=== PATIENT | female | born 1950 | race Caucasian/White ===

== ENCOUNTER 2017-04-09 09:29 | Observation (INO) | payer OTHER ==
[~2017-04-09] VITALS: Ht 172.7 cm; Wt 88.5 kg
[~2017-04-09 09:29] MED LIST: AMLO-110 PO; ASPI81TA28 PO; CHOL100010 PO; SERT50TA PO; SULF800T23 PO
[2017-04-09] MEDS ORDERED: CHOL100010 PO (10:25)
[2017-04-09] MEDS ORDERED: PRED-301 PO (10:25)
[2017-04-09 10:27] LABS: BASO % 0.1 %; BASO ABS # 0.02 K/uL (0-0.2); COMPLETE YES; EOS % 0.1 %; HEMATOCRIT 43.7 % (37-47); IG% 0.3 %; LYMPH % 10.6 %; LYMPH ABS # 1.57 K/uL (1.2-3.4); MEAN CELL VOLUME 92.2 fL (80-100); MEAN CORPUSCULAR HEMOGLOBIN 29.5 pg (25-34); MEAN PLATELET VOLUME 10.6 fL (7.4-10.4); NEUT % 77.9 %; PLATELET COUNT 265 K/uL (130-400); RED BLOOD COUNT 4.74 M/uL (4.2-5.4); WHITE BLOOD COUNT 14.86 K/uL (4.8-10.8)
[2017-04-09 10:47] LABS: ALT/SGPT 17 U/L (12-78); BLOOD UREA NITROGEN 17 mg/dl (7-18); BUN/CREATININE RATIO 15.7 (10-20); CALCIUM 9.5 mg/dl (8.5-10.1); CARBON DIOXIDE 27 mmol/L (21-32); CHLORIDE 102 mmol/L (98-107); GLUCOSE 95 mg/dl (70-99); POTASSIUM 3.8 mmol/L (3.5-5.1); SODIUM 137 mmol/L (136-145)
[2017-04-09 10:57] LABS: ALB/GLOB RATIO 0.9 (0.9-2); ALKALINE PHOSPHATASE 83 U/L (45-117); AST/SGOT 17 U/L (15-37); THYROID STIMULATING HORMONE 0.379 uIu/ml (0.300-4.500)
--- NOTE | 2017-04-09 11:18 | DIAGNOSTIC IMAGING REPORT ---
CHEST ONE VIEW PORTABLE CLINICAL HISTORY: SYNCOPE dyspnea COMPARISON STUDY: 07/18/2016 FINDINGS: Prior median sternotomy. Diaphragms smooth. Lungs are clear. Chronic apical pleural thickening. IMPRESSION: Chronic and postoperative change. No acute process. Electronically signed by: Leonel Machado M.D. 04/09/2017 11:16 AM Dictated Date/Time: 04/09/2017 11:16 AM
--- NOTE | 2017-04-09 11:53 | DIAGNOSTIC IMAGING REPORT ---
CT SCAN OF THE BRAIN WITHOUT IV CONTRAST CLINICAL HISTORY: Headache. Syncope. History of aneurysm repair. COMPARISON STUDY: CT of the brain dated 01/23/[address] angiogram of the brain dated 08/03/2014. TECHNIQUE: Unenhanced axial CT scan of the brain is performed from the vertex to the skull base. Examination is degraded by streak artifact from metallic structures in the left temporal fossa. CT DOSE: 614.27 mGy.cm FINDINGS: Brain parenchyma: There are age-related involutional changes noting moderate patchy subcortical and periventricular microangiopathic change. Postoperative change is again seen in the left temporal fossa with encephalomalacia from a chronic infarct identified in the left basal ganglia and the medial left temporal lobe. A chronic lacunar infarct in the right cerebellar hemisphere is unchanged. These findings are unchanged the 2013. A chronic lacunar infarct in the left cerebellar hemisphere is new from 2013. There is no hemorrhage, mass effect, or evidence of acute territorial ischemia by CT criteria. Sanford-white matter is preserved. No extra-axial fluid collection is seen. Ventricles, sulci, cisterns: Prominent secondary to involutional change. Intracranial vasculature: There is atherosclerotic calcification of the cavernous carotid arteries. Calvarium: There are changes from left frontotemporal craniotomy. Additional postoperative change is also seen more inferiorly in the left temporal bone. No destructive calvarial lesion is seen. Sinuses and mastoids: Mild mucosal thickening is seen within the maxillary antra. The remaining paranasal sinuses are clear. The mastoid air cells are well pneumatized. Orbits: The bony orbits are grossly intact. There are bilateral ocular lens implants. IMPRESSION: 1. There is no hemorrhage, mass effect, or evidence of acute territorial ischemia by CT criteria. 2. Senescent changes, postoperative change, and remote infarct as above. These findings are similar to prior studies. Electronically signed by: Jl Bloom M.D. 04/09/2017 11:52 AM Dictated Date/Time: 04/09/2017 11:46 AM
[2017-04-09] MEDS ORDERED: MoRPHine SULFATE 4 MG/ML 1 ML CARP\\VIAL IV STA (11:55)
[2017-04-09] MEDS ORDERED: ONDANSETRON INJ 2 MG/ML 2 ML VIAL IV STA (11:55)
[2017-04-09 12:09] LABS: URINE APPEARANCE TURBID (CLEAR); URINE BILIRUBIN NEG (NEG); URINE COLOR YELLOW; URINE EPITHELIAL CELL AUTO >30 /lpf (0-5); URINE NITRITE POS (NEG); URINE PH 8.5 (4.5-7.5); URINE SPECIFIC GRAVITY 1.017 (1.000-1.030); UROBILINOGEN POS (NEG); ZZUR CULT IF INDIC CLEAN CATCH YES
[2017-04-09 12:27] LABS: MANUAL MICROSCOPIC REQUIRED? NO; REVIEW REQ? NO; SULFASALICYLIC ACID POS (NEG)
[2017-04-09] MEDS ORDERED: CEFTRIAXONE SOD INJ 1 GM ADDVIAL IV STA (12:48)
[2017-04-09] MEDS ORDERED: OPTIRAY 320 IV PRN (13:15)
[2017-04-09] MEDS ORDERED: NITROGLYCERIN 0.4 MG SL PER TAB CHARGE SL PRN (13:30)
[2017-04-09] MEDS ORDERED: ONDANSETRON INJ 2 MG/ML 2 ML VIAL IV PRN (13:30)
[2017-04-09] MEDS ORDERED: IV FLUIDS COMPLETED PRN (13:45)
--- NOTE | 2017-04-09 14:04 | DIAGNOSTIC IMAGING REPORT ---
CHEST CTA for PULMONARY ARTERIES CT DOSE: 337.25 mGycm HISTORY: Chest pain dyspnea TECHNIQUE: Multiaxial CT images of the chest were performed following the intravenous administration of contrast to evaluate the pulmonary arteries. Maximal intensity projection images were also obtained. COMPARISON STUDY: None. FINDINGS: Mild generalized aneurysmal dilatation of the thoracic aorta. Maximal diameter is 3.5 cm. Aortic root measures 3.3 cm. A major arterial vasculature enhances uniformly. There are no significant filling defects. Mild emphysematous changes present. Mild bibasilar atelectasis is noted. Apical pleural thickening and scarring is considered chronic. Several basilar pulmonary nodules are present measuring up to 1 cm at the left base. Follow-up 4-6 months is suggested. IMPRESSION: 1. Study is negative for pulmonary embolus. 2. Mild aneurysmal dilatation thoracic aorta. 3. Mild emphysematous change. 4. Bibasilar parenchymal nodularity with follow-up CT recommended in 4-6 months. Electronically signed by: Leonel Machado M.D. 04/09/2017 2:03 PM Dictated Date/Time: 04/09/2017 1:58 PM
[2017-04-09] MEDS ORDERED: OMEP20TA PO (14:29)
[2017-04-09] MEDS ORDERED: SERT-234 PO (14:29)
[2017-04-09] MEDS ORDERED: CALC-602 PO (14:29)
[2017-04-09 14:49] VITALS: O2SAT 98
[2017-04-09] MEDS: ACETAMINOPHEN 325 MG TAB PO PRN ×2 (15:05→20:23)
[2017-04-09 15:17] VITALS: BP 125/76; PULSE 64; TEMP 36.9; O2SAT 95
[2017-04-09] MEDS: SODIUM CHLORIDE 0.9% 1000ML 1,000 ML IV SCH (15:34)
[2017-04-09 16:23] VITALS: BP 125/76; PULSE 64; TEMP 36.9; Ht 172.7 cm; Wt 88.5 kg
[2017-04-09] MEDS: AMLODIPINE BESYLATE 5 MG TAB PO SCH (16:41)
--- NOTE | 2017-04-09 17:14 | EMERGENCY ROOM VISIT NOTE ---
History Report prepared by Rafael: Gabe Maynard Under the Supervision of: Dr. Bryce Patterson D.O. First contact with patient: 10:20 Chief Complaint: SYNCOPE Stated Complaint: UPSET STOMACH,SYNCOPE Nursing Triage Summary: pt reports awoke last night around 0430 feeling weak and nauseated reports after going down stairs to drink some gingerale and then went upstairs feeling more and more weak unable to stand after about 30 min able to stand and ambulated to bed. no difficulty speaking brain anuerysm 2012 History of Present Illness The patient is a 66 year old female who presents to the Emergency Room by EMS with complaints of a syncopal episode occurring 6.5 hours ago. She states that she woke up last night with some GERD-like "burning" chest pain on the left side of her chest and walked downstairs to drink some sera-sudha. She states that upon walking back upstairs, she "fainted". The patient has a history of GERD and takes omeprazole as needed. She states that the pain in her chest was present in the left side and resolved after the sera-sudha. She currently complains of a headache, weakness and nausea. The patient denies any pain radiation with her chest pain. She states that her headache feels like a typical headache. She is unsure for how long she was unconscious for following the fall. Per , the patient had a calcification removed from her heart valve five years ago, and has a history of a clipped brain aneurysm four years ago. She also has a history of hypertension. Pt denies change in vision, fevers , shortness of breath, vomiting, diarrhea, abdominal pain, abnormal pain with urination, and melena. Source of History: patient Onset: 6.5 hours ago Quality: other (syncope) Timing: other (episode) Associated Symptoms: + headache, + chest pain (GERD-like), + nausea, + weakness, No fevers, No SOB, No vomiting, No abdominal pain, No diarrhea, No urinary symptoms Review of Systems See HPI for pertinent positives & negatives. A total of 10 systems reviewed and were otherwise negative. Past Medical & Surgical Medical Problems: (1) Atrial fibrillation (2) Brain aneurysm (3) HTN (hypertension) (4) Lacunar infarction (5) Myxoma of heart (6) PMR (polymyalgia rheumatica) (7) Splenic infarct Surgical Problems: (1) H/O aortic valve repair (2) H/O atrial septal defect repair (3) History of cataract surgery (4) History of tubal ligation Family History FH: cancer Hypertension Social History Smoking Status: Never Smoker Alcohol Use: none Drug Use: none Marital Status: Housing Status: lives with family Occupation Status: unemployed Current/Historical Medications Scheduled Amlodipine (Norvasc), 5 MG PO QAM Aspirin (Aspirin Ec), 162 MG PO QPM Calcium Citrate-Vitamin D (Calcium Citrate + D3 Max 315-250 mg-Unit), 1 TAB PO DAILY Omeprazole (Omeprazole), 1 TAB PO DAILY Prednisone (Prednisone), 5 MG PO DAILY Sertraline (Zoloft), 1 TAB PO DAILY Allergies Coded Allergies: Lisinopril (Verified Adverse Reaction, Intermediate, COUGH, 04/09/17) Baclofen (Verified Adverse Reaction, Mild, N/V, 04/09/17) Physical Exam Vital Signs Date Time Temp Pulse Resp B/P (MAP) Pulse Ox O2 Delivery O2 Flow Rate FiO2 04/09/17 14:49 78 20 142/78 98 04/09/17 14:06 76 20 151/76 97 Room Air 04/09/17 13:20 71 04/09/17 12:26 68 20 148/81 98 Room Air 04/09/17 10:57 68 20 121/73 96 Room Air 04/09/17 09:55 67 120/59 65 121/63 04/09/17 09:49 70 04/09/17 09:33 36.8 64 18 141/76 96 Room Air Physical Exam GENERAL: Sitting up in bed, disheveled, no acute distress, nontoxic. EYE EXAM: normal conjunctiva, PERRL and EOM's intact OROPHARYNX: no exudate, no erythema, lips, buccal mucosa, and tongue normal and mucous membranes are moist NECK: supple, no nuchal rigidity, no adenopathy, non-tender LUNGS: Clear to auscultation. Normal chest wall mechanics HEART: no murmurs, S1 normal and S2 normal ABDOMEN: abdomen soft, non-tender, normo-active bowel sounds, no masses, no rebound or guarding. BACK: Back is symmetrical on inspection and there is no deformity, no midline tenderness, no CVA tenderness. SKIN: no rashes and no bruising UPPER EXTREMITIES: upper extremities are grossly normal. LOWER EXTREMITIES: No pitting edema. NEURO EXAM: Normal sensorium, cranial nerves II-XII intact, normal speech, no weakness of arms, no weakness of legs. No drift. Finger to nose intact. Gross sensation intact. Medical Decision & Procedures ER Provider Diagnostic Interpretation: Radiology results as stated below per my review and the radiologist's interpretation: CT SCAN OF THE BRAIN WITHOUT IV CONTRAST FINDINGS: Brain parenchyma: There are age-related involutional changes noting moderate patchy subcortical and periventricular microangiopathic change. Postoperative change is again seen in the left temporal fossa with encephalomalacia from a chronic infarct identified in the left basal ganglia and the medial left temporal lobe. A chronic lacunar infarct in the right cerebellar hemisphere is unchanged. These findings are unchanged the 2014. A chronic lacunar infarct in the left cerebellar hemisphere is new from 2014. There is no hemorrhage, mass effect, or evidence of acute territorial ischemia by CT criteria. Sanford-white matter is preserved. No extra-axial fluid collection is seen. Ventricles, sulci, cisterns: Prominent secondary to involutional change. Intracranial vasculature: There is atherosclerotic calcification of the cavernous carotid arteries. Calvarium: There are changes from left frontotemporal craniotomy. Additional postoperative change is also seen more inferiorly in the left temporal bone. No destructive calvarial lesion is seen. Sinuses and mastoids: Mild mucosal thickening is seen within the maxillary antra. The remaining paranasal sinuses are clear. The mastoid air cells are well pneumatized. Orbits: The bony orbits are grossly intact. There are bilateral ocular lens implants. IMPRESSION: 1. There is no hemorrhage, mass effect, or evidence of acute territorial ischemia by CT criteria. 2. Senescent changes, postoperative change, and remote infarct as above. These findings are similar to prior studies. Electronically signed by: Jl Bloom M.D. CHEST ONE VIEW PORTABLE FINDINGS: Prior median sternotomy. Diaphragms smooth. Lungs are clear. Chronic apical pleural thickening. IMPRESSION: Chronic and postoperative change. No acute process. Electronically signed by: Leonel Machado M.D. Laboratory Results 04/09/17 10:00 Red Blood Count 4.74, Mean Corpuscular Volume 92.2, Mean Corpuscular Hemoglobin 29.5, Mean Corpuscular Hemoglobin Concent 32.0, Mean Platelet Volume 10.6, Neutrophils (%) (Auto) 77.9, Lymphocytes (%) (Auto) 10.6, Monocytes (%) (Auto) 11.0, Eosinophils (%) (Auto) 0.1, Basophils (%) (Auto) 0.1, Neutrophils # (Auto ) 11.57, Lymphocytes # (Auto) 1.57, Monocytes # (Auto) 1.64, Eosinophils # (Auto ) 0.02, Basophils # (Auto) 0.02 04/09/17 10:00 Test 04/09/17 10:00 04/09/17 10:24 04/09/17 11:50 White Blood Count 14.86 K/uL (4.8-10.8) Red Blood Count 4.74 M/uL (4.2-5.4) Hemoglobin 14.0 g/dL (12.0-16.0) Hematocrit 43.7 % (37-47) Mean Corpuscular Volume 92.2 fL (80-100) Mean Corpuscular Hemoglobin 29.5 pg (25-34) Mean Corpuscular Hemoglobin Concent 32.0 g/dl (32-36) Platelet Count 265 K/uL (130-400) Mean Platelet Volume 10.6 fL (7.4-10.4) Neutrophils (%) (Auto) 77.9 % Lymphocytes (%) (Auto) 10.6 % Monocytes (%) (Auto) 11.0 % Eosinophils (%) (Auto) 0.1 % Basophils (%) (Auto) 0.1 % Neutrophils # (Auto) 11.57 K/uL (1.4-6.5) Lymphocytes # (Auto) 1.57 K/uL (1.2-3.4) Monocytes # (Auto) 1.64 K/uL (0.11-0.59) Eosinophils # (Auto) 0.02 K/uL (0-0.5) Basophils # (Auto) 0.02 K/uL (0-0.2) RDW Standard Deviation 42.5 fL (36.4-46.3) RDW Coefficient of Variation 12.5 % (11.5-14.5) Immature Granulocyte % (Auto) 0.3 % Immature Granulocyte # (Auto) 0.04 K/uL (0.00-0.02) D-Dimer 860 ug/L FEU (0-500) Anion Gap 8.0 mmol/L (3-11) Est Creatinine Clear Calc Drug Dose 55.2 ml/min Estimated GFR () 59.7 Estimated GFR (Non- 51.5 BUN/Creatinine Ratio 15.7 (10-20) Calcium Level 9.5 mg/dl (8.5-10.1) Total Bilirubin 1.4 mg/dl (0.2-1) Aspartate Amino Transf (AST/SGOT) 17 U/L (15-37) Alanine Aminotransferase (ALT/SGPT) 17 U/L (12-78) Alkaline Phosphatase 83 U/L (45-117) Total Creatine Kinase 42 U/L (26-192) Total Protein 7.4 gm/dl (6.4-8.2) Albumin 3.4 gm/dl (3.4-5.0) Globulin 4.0 gm/dl (2.5-4.0) Albumin/Globulin Ratio 0.9 (0.9-2) Thyroid Stimulating Hormone (TSH) 0.379 uIu/ml (0.300-4.500) Bedside Troponin I < 0.030 ng/ml (0-0.045) Urine Color YELLOW Urine Appearance TURBID (CLEAR) Urine pH 8.5 (4.5-7.5) Urine Specific [place] 1.017 (1.000-1.030) Urine Protein 2+ (NEG) Urine Glucose (UA) NEG (NEG) Urine Ketones NEG (NEG) Urine Occult Blood 2+ (NEG) Urine Nitrite POS (NEG) Urine Bilirubin NEG (NEG) Urine Urobilinogen POS (NEG) Urine Leukocyte Esterase LARGE (NEG) Urine WBC (Auto) >30 /hpf (0-5) Urine RBC (Auto) >30 /hpf (0-4) Urine Hyaline Casts (Auto) 1-5 /lpf (0-5) Urine Epithelial Cells (Auto) >30 /lpf (0-5) Urine Bacteria (Auto) 4+ (NEG) Laboratory results per my review. Medications Administered Medications (Trade) Dose Ordered Sig/Svitlana Route Start Time Stop Time Status Last Admin Dose Admin Morphine Sulfate (MoRPHine SULFATE INJ) 4 mg NOW STAT IV 04/09/17 11:55 04/09/17 11:56 DC 04/09/17 12:22 4 MG Ondansetron HCl (Zofran Inj) 4 mg NOW STAT IV 04/09/17 11:55 7/11/17 11:56 DC 04/09/17 12:22 4 MG Ceftriaxone Sodium (Rocephin Inj) 1 gm NOW STAT IV 04/09/17 12:48 04/09/17 12:49 DC 04/09/17 13:06 1 GM Acetaminophen (Tylenol Tab) 650 mg Q4H PRN PO 04/09/17 13:30 05/09/17 13:29 04/09/17 15:05 650 MG ECG Indication: syncope Rate (beats per minute): 63 Rhythm: sinus rhythm Findings: no ectopy, other (Normal axis. Normal intervals. ) ED Course ED COURSE: Vital signs were reviewed and appeared normal. The patients medical record was reviewed The above diagnostic studies were performed and reviewed. ED treatments and interventions as stated above. 1031: The patient was evaluated in room C9. A complete history and physical examination was performed. 1155: Ordered Zofran Inj 4 mg IV, Morphine Sulfate 4 mg IV. 1248: Ordered Rocephin Inj 1 gm IV. 1250: Upon reevaluation, the patient is resting comfortably. I discussed my findings with the patient and she understands and agrees with the treatment plan. Based on the patients age, coexisting illnesses, exam and lab findings the decision to treat as an inpatient was made. The patient remained stable while under my care. The patient will be evaluated for further management. Medical Decision Differential diagnosis includes etiologies such as vasovagal event, infection, hypoglycemia, electrolyte abnormalities, cardiac sources, intracerebral event, toxicologic, neurologic, as well as others were entertained. Blood pressure screening: Patient was found to have normal blood pressure on screening and does not require follow-up. Medication Reconciliation: I attest that I have personally reviewed the patient' s current medication list. Patient is a 66-year-old female who had left-sided chest pain that was followed by basic will then. She describes chest pain as GERD-like. Labs are remarkable for a leukocytosis of 14,000. BMP along with LFTs, troponin and TSH were unremarkable. UA shows a clear UTI although contaminated with multiple epithelial cells. EKG was unremarkable. D-dimer was elevated but CT PE was negative for clots/infection. CT did show a pulmonary nodule to have followed up in 4-6 months. Patient was given IV antibiotics and admitted to internal medicine with atypical chest pain and syncopal episode. Consults Time Called: 1245 Consulting Physician: Angie Lua Returned Call: 1250 I reviewed the patient's case with Angie CASE. Colleen will evaluate the patient for further management. Impression Primary Impression: Syncope Additional Impressions: Chest pain UTI (urinary tract infection) Pulmonary nodule Scribe Attestation The scribe's documentation has been prepared under my direction and personally reviewed by me in its entirety. I confirm that the note above accurately reflects all work, treatment, procedures, and medical decision making performed by me. Departure Information Dispostion Being Evaluated By Hospitalist Referrals Francisco Carreon MD (PCP) Patient Instructions My [facility] Problem Qualifiers Primary Impression: Syncope Syncope type: unspecified Qualified Codes: R55 - Syncope and collapse Additional Impressions: Chest pain Chest pain type: unspecified Qualified Codes: R07.9 - Chest pain, unspecified UTI (urinary tract infection) Urinary tract infection type: site unspecified Hematuria presence: with hematuria Qualified Codes: N39.0 - Urinary tract infection, site not specified ; R31.9 - Hematuria, unspecified
--- NOTE | 2017-04-09 18:20 | History and Physical ---
History & Physical Date & Time of Service: Apr 09, 2017 ~ 14:15 Chief Complaint: Syncope Primary Care Physician: Francisco Carreon MD History of Present Illness 66 year old female who presents to the ER after syncopal events. Patient reports that she woke up around 0400 this morning and had heart burn. She describes it as located on the left side of her chest and describes it as a burning sensation. She describes this as typical heart burn for her. She denies any chest pain, pressure, or radiation of the pain into her jaw, neck, or arm. Patient then got up and and took some TUMS and drank some soda. She reports resolution of the heart burn after this. On her way back to bed, she started to feel very lightheaded, nauseated, and generally weak. Once she reached the top of the stairs, she passed out. Her heard her fall and came to help her. She denies tongue biting or loss of bowel or bladder function. No unilateral weakness, numbness, tingling, slurred speech, or facial droop. When she tried to get up to go back to bed, she again passed out. She was able to get back to bed and fall asleep for a few hours. When she woke up she still felt poorly with lightheadedness and generalized weakness. Patient denies any associated shortness of breath or diaphoresis. Patient reports persistent UTI symptoms for the past several months. She reports she has been following with urology however has not been placed on antibiotics for several months. She reports urinary pressure and low back pain. She denies fever and chills. No vomiting or diarrhea. In the ER, U/A is consistent with UTI. WBC 14K. Vitals are stable. Head CT and CTA chest are negative for acute findings. She was given a dose of IV Rocephin. 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 (6) PMR (polymyalgia rheumatica) Status: Chronic (7) Splenic infarct Status: Chronic Surgical Problems: (1) H/O aortic valve repair Status: Chronic (2) H/O atrial septal defect repair Status: Chronic (3) History of cataract surgery Status: Chronic (4) History of tubal ligation Status: Chronic Family History FH: colon cancer MOTHER FH: multiple sclerosis SISTER Social History Smoking Status: Former Smoker Alcohol Use: none Marital Status: Housing status: lives with family Immunizations History of Influenza Vaccine: Yes Influenza Vaccine Date: Jun 22, 2016 History of Tetanus Vaccine?: Yes (UTD) Tetanus Immunization Date: February 26, 2013 History of Pneumococcal: Yes Pneumococcal Date: Apr 08, 2017 Multi-Drug Resistant Organisms History of MDRO: No Allergies Coded Allergies: Lisinopril (Verified Adverse Reaction, Intermediate, COUGH, 04/09/17) Baclofen (Verified Adverse Reaction, Mild, N/V, 04/09/17) Home Medications Scheduled Amlodipine (Norvasc), 5 MG PO QAM Aspirin (Aspirin Ec), 162 MG PO QPM Calcium Citrate-Vitamin D (Calcium Citrate + D3 Max 315-250 mg-Unit), 1 TAB PO DAILY Omeprazole (Omeprazole), 1 TAB PO DAILY Prednisone (Prednisone), 5 MG PO DAILY Sertraline (Zoloft), 1 TAB PO DAILY Review of Systems ROS per HPI, all other systems reviewed and negative Physical Exam Vital Signs Date Time Temp Pulse Resp B/P (MAP) Pulse Ox O2 Delivery O2 Flow Rate FiO2 04/09/17 14:06 76 20 151/76 97 Room Air 04/09/17 13:20 71 04/09/17 12:26 68 20 148/81 98 Room Air 04/09/17 10:57 68 20 121/73 96 Room Air 04/09/17 09:55 67 120/59 65 121/63 04/09/17 09:49 70 04/09/17 09:33 36.8 64 18 141/76 96 Room Air General Appearance: no apparent distress Head: normocephalic Eyes: normal inspection ENT: hearing grossly normal Neck: supple, no JVD Respiratory/Chest: lungs clear, normal breath sounds, no respiratory distress Cardiovascular: regular rate, rhythm, no edema, normal peripheral pulses Abdomen/GI: normal bowel sounds, non tender, soft Extremities/Musculoskelatal: normal inspection, no calf tenderness Neurologic/Psych: no motor/sensory deficits, alert, normal mood/affect, oriented x 3 Skin: normal color, warm/dry Diagnostics Laboratory Results Results Past 24 Hours Test 04/09/17 10:00 04/09/17 10:24 04/09/17 11:50 Range/Units White Blood Count 14.86 4.8-10.8 K/uL Red Blood Count 4.74 4.2-5.4 M/uL Hemoglobin 14.0 12.0-16.0 g/dL Hematocrit 43.7 37-47 % Mean Corpuscular Volume 92.2 80-100 fL Mean Corpuscular Hemoglobin 29.5 25-34 pg Mean Corpuscular Hemoglobin Concent 32.0 32-36 g/dl Platelet Count 265 130-400 K/uL Mean Platelet Volume 10.6 7.4-10.4 fL Neutrophils (%) (Auto) 77.9 % Lymphocytes (%) (Auto) 10.6 % Monocytes (%) (Auto) 11.0 % Eosinophils (%) (Auto) 0.1 % Basophils (%) (Auto) 0.1 % Neutrophils # (Auto) 11.57 1.4-6.5 K/uL Lymphocytes # (Auto) 1.57 1.2-3.4 K/uL Monocytes # (Auto) 1.64 0.11-0.59 K/uL Eosinophils # (Auto) 0.02 0-0.5 K/uL Basophils # (Auto) 0.02 0-0.2 K/uL RDW Standard Deviation 42.5 36.4-46.3 fL RDW Coefficient of Variation 12.5 11.5-14.5 % Immature Granulocyte % (Auto) 0.3 % Immature Granulocyte # (Auto) 0.04 0.00-0.02 K/uL D-Dimer 860 0-500 ug/L FEU Sodium Level 137 136-145 mmol/L Potassium Level 3.8 3.5-5.1 mmol/L Chloride Level 102 98-107 mmol/L Carbon Dioxide Level 27 21-32 mmol/L Anion Gap 8.0 3-11 mmol/L Blood Urea Nitrogen 17 7-18 mg/dl Creatinine 1.10 0.60-1.20 mg/dl Est Creatinine Clear Calc Drug Dose 55.2 ml/min Estimated GFR () 59.7 Estimated GFR (Non- 51.5 BUN/Creatinine Ratio 15.7 10-20 Random Glucose 95 70-99 mg/dl Calcium Level 9.5 8.5-10.1 mg/dl Total Bilirubin 1.4 0.2-1 mg/dl Aspartate Amino Transf (AST/SGOT) 17 15-37 U/L Alanine Aminotransferase (ALT/SGPT) 17 12-78 U/L Alkaline Phosphatase 83 45-117 U/L Total Creatine Kinase 42 26-192 U/L Creatine Kinase MB < 0.5 0.5-3.6 ng/ml Creatine Kinase MB Ratio 0-3.0 Troponin I < 0.015 0-0.045 ng/ml Total Protein 7.4 6.4-8.2 gm/dl Albumin 3.4 3.4-5.0 gm/dl Globulin 4.0 2.5-4.0 gm/dl Albumin/Globulin Ratio 0.9 0.9-2 Thyroid Stimulating Hormone (TSH) 0.379 0.300-4.500 uIu/ml Bedside Troponin I < 0.030 0-0.045 ng/ml Urine Color YELLOW Urine Appearance TURBID CLEAR Urine pH 8.5 4.5-7.5 Urine Specific [place] 1.017 1.000-1.030 Urine Protein 2+ NEG Urine Glucose (UA) NEG NEG Urine Ketones NEG NEG Urine Occult Blood 2+ NEG Urine Nitrite POS NEG Urine Bilirubin NEG NEG Urine Urobilinogen POS NEG Urine Leukocyte Esterase LARGE NEG Urine WBC (Auto) >30 0-5 /hpf Urine RBC (Auto) >30 0-4 /hpf Urine Hyaline Casts (Auto) 1-5 0-5 /lpf Urine Epithelial Cells (Auto) >30 0-5 /lpf Urine Bacteria (Auto) 4+ NEG Microbiology Results 04/09/17 Urine Culture, Received Pending Diagnostic Radiology CXR IMPRESSION: Chronic and postoperative change. No acute process. CT HEAD IMPRESSION: 1. There is no hemorrhage, mass effect, or evidence of acute territorial ischemia by CT criteria. 2. Senescent changes, postoperative change, and remote infarct as above. These findings are similar to prior studies. CTA CHEST IMPRESSION: 1. Study is negative for pulmonary embolus. 2. Mild aneurysmal dilatation thoracic aorta. 3. Mild emphysematous change. 4. Bibasilar parenchymal nodularity with follow-up CT recommended in 4-6 months. Impression Assessment and Plan SYNCOPE - admit to tele - patient presenting with syncopal events x 2 at home; in the ED, U/A consistent with UTI - suspect vasovagal / volume depletion from UTI - CT head negative; no focal deficits on exam - patient reported heart burn which is typical for her, was relieved with TUMS and soda; low suspicion for ACS; initial troponin negative, EKG without acute ST changes - continue to cycle cardiac enzymes, check resting echo - + D. Dimer - CTA chest negative, will check BLLE dopplers to complete work up - IVF, monitor orthostatic BPs - carotid dopplers UTI - U/A consistent with UTI - patient reports recurrent / persistent UTI symptoms for the past several months - has been following with Dr. Obando - s/p [place] the ED - prior cultures have grown E. Coli and Beta Strep, sensitive to Rocephin - will continue with and adjust per culture results - preliminary outpatient culture growing E. Coli - do not suspect sepsis HX ATRIAL MYXOMA, ASD REPAIR, AORTIC VALVE REPAIR - checking echo HX BRAIN ANEURYSM CLIPPING PMR - continue steroids - BP stable, no role for stress dose steroids at this time HTN - BP controlled, continue amlodipine DEPRESSION - continue sertraline DVT PROPHYLAXIS - SCDs due to hx of brain aneurysm clipping DISPO - The patient will be placed as observation status for now until further work up is complete. Attending Note: Patient is a 66 yr female who presents with for evaluation of a syncopal episode , left sided chest pain, lightheadedness and generalized weakness. CT head showed no acute process. Has elevated d-dimer CT for PE is negative. UA is suggestive of UTI. Physical Exam: Vitals signs as noted above General Appearance:Moderately built and nourished, no apparent distress Head: normocephalic, Atraumatic Eyes: normal inspection, EOMI, PERRL Neck: supple, Trachea midline Respiratory/Chest: Normal breath sounds, CTA Cardiovascular: Metallic heart sounds, No murmur Abdomen/GI:Soft, Non tender, Bowel sounds present Extremities/Musculoskelatal:normal inspection, no edema Neurologic/Psych:AAOX3, grossly no focal neurological deficits Skin:normal color,warm. Well healed surgical scar on chest Assessment and Plan: Syncope:Likely Vasovagal CT head, Carotid duplex: No acute process Check ECHO, Orthostatics Monitor in tele for arrhythmias UTI: Continue Abx Follow cultures CT finding: Bibasilar parenchymal nodularity Needs follow-up CT 4-6 months as outpatient I personally reviewed the record. Patient is interviewed and examined at bedside. Patient's care is coordinated with Angie Coronel ROPING TENDER. Please refer to the documentation above for details of patient's presentation and for discussion of other issues. VTE Prophylaxis VTE Risk Assessment Done? Y/N: Yes Risk Level: Moderate
--- NOTE | 2017-04-09 19:18 | DIAGNOSTIC IMAGING REPORT ---
BILATERAL LOWER EXTREMITY VENOUS DOPPLER CLINICAL HISTORY: Syncope. COMPARISON STUDY: No previous studies for comparison. TECHNIQUE: Sonography of the deep venous system of the bilateral lower extremities was performed. Compression and augmentation were evaluated. FINDINGS: The bilateral common femoral, superficial femoral and popliteal veins were compressible. Augmentation was normal. Flow was shown within the deep calf vessels. IMPRESSION: No evidence of deep venous thrombus within the bilateral lower extremities. Electronically signed by: Tee Galvez M.D. 04/09/2017 7:17 PM Dictated Date/Time: 04/09/2017 7:16 PM
--- NOTE | 2017-04-09 19:20 | DIAGNOSTIC IMAGING REPORT ---
CAROTID ARTERY ULTRASOUND CLINICAL HISTORY: Syncope. COMPARISON STUDY: None. TECHNIQUE: Real-time, grayscale, and color Doppler sonography of the carotid and vertebral arteries was performed. Images were viewed in the transverse and longitudinal planes. FINDINGS: There is moderate atherosclerotic plaque. Velocity measurements are listed below. COMMON CAROTID PEAK SYSTOLIC VELOCITY (CM/S): RIGHT 93 LEFT 103 ICA PEAK SYSTOLIC VELOCITY (CM/S): RIGHT 66 LEFT 99 The systolic ratios between the internal to common carotid arteries are normal. Antegrade flow is seen in the vertebral arteries. The external carotid arteries are patent. Blood pressure in the right arm measured 140/75. Blood pressure in the left arm measured 131/71. IMPRESSION: No evidence of a hemodynamically significant stenosis. Electronically signed by: Tee Galvez M.D. 04/09/2017 7:19 PM Dictated Date/Time: 04/09/2017 7:17 PM
[2017-04-09 19:50] VITALS: BP 121/80; PULSE 65; TEMP 36.9; O2SAT 93
[2017-04-09] MEDS ORDERED: ASPIRIN 81 MG ECTAB PO SCH (21:00)
[2017-04-09 23:53] VITALS: BP 98/60; PULSE 66; TEMP 36.7; O2SAT 93
[2017-04-10] MEDS: SODIUM CHLORIDE 0.9% 1000ML 1,000 ML IV SCH (04:05)
[2017-04-10 05:03] VITALS: BP 124/76; PULSE 61; TEMP 36.6; O2SAT 96
[2017-04-10 07:34] VITALS: BP 142/73; PULSE 63; TEMP 36.7; O2SAT 93
[2017-04-10 07:37] VITALS: BP 134/73; PULSE 62; O2SAT 94
[2017-04-10 07:49] LABS: HEMATOCRIT 42.2 % (37-47); MEAN CELL VOLUME 92.5 fL (80-100); MEAN CORPUSCULAR HEMOGLOBIN 29.6 pg (25-34); MEAN PLATELET VOLUME 10.7 fL (7.4-10.4); PLATELET COUNT 226 K/uL (130-400); RED BLOOD COUNT 4.56 M/uL (4.2-5.4)
[2017-04-10] MEDS: AMLODIPINE BESYLATE 5 MG TAB PO SCH (07:57)
[2017-04-10 08:00] LABS: BUN/CREATININE RATIO 17.6 (10-20); CALCIUM 8.9 mg/dl (8.5-10.1); CREATININE 0.87 mg/dl (0.60-1.20); POTASSIUM 3.7 mmol/L (3.5-5.1)
[2017-04-10] MEDS ORDERED: PANTOprazole SOD 40 MG TAB PO SCH (09:00)
[2017-04-10] MEDS ORDERED: SERTRALINE HCL 100 MG TAB PO SCH (09:00)
[2017-04-10] MEDS ORDERED: CALCIUM 600MG + VIT D 400 IU TAB PO SCH (09:00)
[2017-04-10] MEDS ORDERED: TRAMADOL HCL 50 MG TAB PO PRN (09:15)
[2017-04-10] MEDS ORDERED: PERFLUTREN LIPID MICROSPHERE (DEFINITY) IV ONE (10:49)
[2017-04-10 11:18] VITALS: BP 137/79; PULSE 85; TEMP 36.8; O2SAT 99
[2017-04-10] MEDS ORDERED: CEFTRIAXONE SOD INJ 1 GM in DEXTROSE 5% ADD-VANTAGE 50ML 50 ML IV SCH (12:00)
--- NOTE | 2017-04-10 13:22 | ECHOCARDIOGRAM REPORT ---
*NOTICE TO RECEIVING CONSTITUTION PARTY AGENCY This information is strictly Confidential and protected under [place] law. [place] law prohibits you from making any further disclosure of this information unless further disclosure is expressly permitted by the written consent of the person to whom it pertains or is authorized by law. A general authorization for the release of medical or other information is not sufficient for this purpose. Hospital accepts no responsibility if the information is made available to any other person, INCLUDING THE PATIENT. Interpretation Summary * Name: ZULEYMA BLACKWOOD Study Date: 04/10/2017 10:05 AM BP: 134/73 mmHg * Patient Location: [facility]\S\N283\S\1 HR: 59 * : 1950 (M/d/yyy) Gender: Female Height: 68 in * Age: 66 yrs Ethnicity: [place] Weight: 182 lb * Ordering Physician: Angie Coronel * Referring Physician: Self, Referred * Performed By: Moshe Solis RCS * * Reason For Study: Chest pain * -- Conclusions -- * The study was technically limited, but adequate for the referral indication. * The left ventricular wall motion is normal. * Left ventricular systolic function is normal. * Ejection Fraction = 65-70%. * Diastolic dysfunction, Grade II (pseudonormalization pattern). * There is no significant valvular heart disease. Procedure Details * A complete two-dimensional transthoracic echocardiogram was performed (2D, M-mode, Doppler and color flow Doppler). * A contrast injection of Definity was performed to improve assessment of LV function. * Contrast was injected into an intravenous site in the right arm. * One vial of Definity ultrasound contrast was diluted in normal saline to a total volume of 10 ml. A total of '4' ml of solution was administered during imaging. * Expiration date 1AUG18. * Lot # [id number] of Definity utilized for procedure. * The attending nurse who injected the contrast agent was Bianca Villatoro RN. Left Ventricle * The left ventricle is normal in size. * There is normal left ventricular wall thickness. * Left ventricular systolic function is normal. * Ejection Fraction = 65-70%. * The left ventricular wall motion is normal. Right Ventricle * The right ventricle is normal size. * The right ventricular systolic function is normal as assessed by tricuspid annular plane systolic excursion (TAPSE) (normal >1.5 cm). Atria * The left atrial size is normal. * Right atrial size is normal. * There is no evidence of atrial septal defect, but resolution does not allow assessment for a patent foramen ovale. Mitral Valve * The mitral valve is normal. * There is no mitral valve stenosis. * Significant mitral regurgitation is absent. Tricuspid Valve * The tricuspid valve is normal. * There is no tricuspid stenosis. * Significant tricuspid regurgitation is absent. Aortic Valve * The aortic valve is trileaflet. * Aortic stenosis is absent. * There is no significant aortic regurgitation. Pulmonic Valve * The pulmonary valve is not well seen, but the Doppler examination is normal without significant regurgitation or stenosis. Great Vessels * The aortic root and proximal ascending aorta are normal sized. Pericardium/Pleural * There is no pericardial effusion. Great Vessels * Normal inferior vena cava diameter and respiratory variation suggests normal central venous pressure. Left Ventricular Diastolic Function * Diastolic dysfunction, Grade II (pseudonormalization pattern). MMode 2D Measurements and Calculations IVSd 0.67 cm LVIDd 5.0 cm LVIDs 3.0 cm LVPWd 0.98 cm IVS/LVPW 0.68 FS 40.0 % EDV(Teich) 117.7 ml ESV(Teich) 34.8 ml EF(Teich) 70.5 % EDV(cubed) 124.3 ml ESV(cubed) 26.8 ml EF(cubed) 78.4 % LV mass(C)d 141.5 grams LV mass(C)dI 72.1 grams/m\S\2 SV(Teich) 82.9 ml SI(Teich) 42.2 ml/m\S\2 SV(cubed) 97.5 ml SI(cubed) 49.7 ml/m\S\2 Ao root diam 3.2 cm Ao root area 8.2 cm\S\2 LVOT diam 2.0 cm LVOT area 3.1 cm\S\2 LVAd ap4 25.6 cm\S\2 LVLd ap4 8.5 cm EDV(MOD-sp4) 62.8 ml EDV(sp4-el) 65.4 ml LVAs ap4 12.2 cm\S\2 LVLs ap4 6.5 cm ESV(MOD-sp4) 19.9 ml ESV(sp4-el) 19.4 ml EF(MOD-sp4) 68.3 % EF(sp4-el) 70.3 % LVAd ap2 25.3 cm\S\2 LVLd ap2 8.2 cm EDV(MOD-sp2) 64.4 ml EDV(sp2-el) 66.4 ml LVAs ap2 11.2 cm\S\2 LVLs ap2 7.0 cm ESV(MOD-sp2) 15.5 ml ESV(sp2-el) 15.2 ml EF(MOD-sp2) 75.9 % EF(sp2-el) 77.2 % LVLd %diff -3.87 % EDV(MOD-bp) 64.8 ml LVLs %diff 6.9 % ESV(MOD-bp) 17.9 ml EF(MOD-bp) 72.4 % SV(MOD-sp4) 42.9 ml SI(MOD-sp4) 21.9 ml/m\S\2 SV(MOD-sp2) 48.9 ml SI(MOD-sp2) 24.9 ml/m\S\2 SV(MOD-bp) 46.9 ml SI(MOD-bp) 23.9 ml/m\S\2 SV(sp4-el) 45.9 ml SI(sp4-el) 23.4 ml/m\S\2 SV(sp2-el) 51.3 ml SI(sp2-el) 26.1 ml/m\S\2 Doppler Measurements and Calculations MV E max jasmina 96.0 cm/sec MV A max jasmina 61.1 cm/sec MV E/A 1.6 MV dec time 0.17 sec Ao V2 max 160.2 cm/sec Ao max PG 10.3 mmHg Ao max PG (full) 3.4 mmHg Ao V2 mean 110.4 cm/sec Ao mean PG 5.4 mmHg Ao mean PG (full) 1.9 mmHg Ao V2 VTI 34.2 cm YOSELIN(I,A) 2.4 cm\S\2 YOSELIN(I,D) 2.4 cm\S\2 YOSELIN(V,A) 2.5 cm\S\2 YOSELIN(V,D) 2.5 cm\S\2 LV V1 max PG 6.8 mmHg LV V1 mean PG 3.4 mmHg LV V1 max 130.7 cm/sec LV V1 mean 88.1 cm/sec LV V1 VTI 26.4 cm SV(Ao) 281.9 ml SI(Ao) 143.6 ml/m\S\2 SV(LVOT) 81.7 ml SI(LVOT) 41.6 ml/m\S\2 TR max jasmina 192.7 cm/sec
[2017-04-10 15:03] VITALS: BP_SYST 121; BP_SYST 124; BP_DIAS 75; BP_DIAS 76; BP_DIAS 77; PULSE 61; PULSE 62; PULSE 65; TEMP 36.6; O2SAT 93
--- NOTE | 2017-04-10 16:24 | Progress Note ---
Medicine Progress Note Date & Time of Visit: Apr 10, 2017 at 16:13. Subjective seen with daughter at bedside states she feels fine overall back to her baseline ambulating with no problems denies dizziness, nausea, chest pain, dyspnea, palpitations denies abdominal pain, urination, chills no other symptoms states she is ready and would like to be discharged today Objective Last 8 Hrs Date Time Temp Pulse Resp B/P (MAP) Pulse Ox O2 Delivery O2 Flow Rate FiO2 04/10/17 15:03 36.6 62 18 124/75 (91) 93 Room Air 61 121/76 (91) 65 121/77 (92) 04/10/17 12:00 Room Air 04/10/17 11:18 36.8 85 18 137/79 (98) 99 Room Air Physical Exam: General- oriented x 3, not in distress, speaks in sentences with no effort Eyes- EOMI, anicteric ENT- oropharynx clear Neck- supple, no JVD, no adenopathy, no thyromegaly Lungs- clear to auscultation bilaterally Heart- regular rhythm; no murmur, normal rate Abdomen- normal bowel sounds, soft, nontender Extremities- no pretibial edema, no calf tenderness Neuro- alert, oriented x 3; no gross focal deficits Skin- warm & dry Laboratory Results: Last 24 Hours Test 04/09/17 22:00 04/09/17 22:02 04/10/17 06:51 Creatine Kinase MB Ratio Creatine Kinase MB < 0.5 ng/ml Troponin I < 0.015 ng/ml White Blood Count 13.80 K/uL Red Blood Count 4.56 M/uL Hemoglobin 13.5 g/dL Hematocrit 42.2 % Mean Corpuscular Volume 92.5 fL Mean Corpuscular Hemoglobin 29.6 pg Mean Corpuscular Hemoglobin Concent 32.0 g/dl RDW Standard Deviation 42.9 fL RDW Coefficient of Variation 12.7 % Platelet Count 226 K/uL Mean Platelet Volume 10.7 fL Sodium Level 139 mmol/L Potassium Level 3.7 mmol/L Chloride Level 105 mmol/L Carbon Dioxide Level 27 mmol/L Anion Gap 7.0 mmol/L Blood Urea Nitrogen 15 mg/dl Creatinine 0.87 mg/dl Est Creatinine Clear Calc Drug Dose 72.0 ml/min Estimated GFR () 79.3 Estimated GFR (Non- 68.5 BUN/Creatinine Ratio 17.6 Random Glucose 77 mg/dl Calcium Level 8.9 mg/dl Assessment & Plan SYNCOPE - likely vasovagal reflex, component of dehydration and UTI - patient presenting with syncopal events x 2 at home; occurred while patient was having heartburn - CT head negative; no focal deficits on exam Cardiac markers: negative Echo: The study was technically limited, but adequate for the referral indication. * The left ventricular wall motion is normal. * Left ventricular systolic function is normal. * Ejection Fraction = 65-70%. * Diastolic dysfunction, Grade II (pseudonormalization pattern). * There is no significant valvular heart disease. Carotid Doppler: negative CT chest: no PE Doppler US legs: no DVT Orthostatic VS: negative - given IV fluids, IV Ceftriaxone clinically improved overall - follow up with PCP in 3-5 days E coli UTI - U/A consistent with UTI - patient reports recurrent / persistent UTI symptoms for the past several months - has been following with Dr. Obando - outpatient urine culture 04/08/17 growing E. Coli sensitivve to Ceftri repeat urine culture as inpatient 04/09/17 gram neg bacilli - received 2 days of Ceftriaxone IV - discharge on 3 more days of Cefuroxime PO to complete 5 day course monitor Lung Nodules, Thoracic Aorta Dilatation - seen on CT chest FINDINGS: Mild generalized aneurysmal dilatation of the thoracic aorta. Maximal diameter is 3.5 cm. Aortic root measures 3.3 cm. A major arterial vasculature enhances uniformly. There are no significant filling defects. Mild emphysematous changes present. Mild bibasilar atelectasis is noted. Apical pleural thickening and scarring is considered chronic. Several basilar pulmonary nodules are present measuring up to 1 cm at the left base. Follow-up 4-6 months is suggested. IMPRESSION: 1. Study is negative for pulmonary embolus. 2. Mild aneurysmal dilatation thoracic aorta. 3. Mild emphysematous change. 4. Bibasilar parenchymal nodularity with follow-up CT recommended in 4-6 months. -- please follow up accordingly HX ATRIAL MYXOMA, ASD REPAIR, AORTIC VALVE REPAIR - Echo: -- Conclusions -- * The study was technically limited, but adequate for the referral indication. * The left ventricular wall motion is normal. * Left ventricular systolic function is normal. * Ejection Fraction = 65-70%. * Diastolic dysfunction, Grade II (pseudonormalization pattern). * There is no significant valvular heart disease. HX BRAIN ANEURYSM CLIPPING PMR - continue Prednisone HTN - BP controlled, continue amlodipine DEPRESSION - continue sertraline DVT PROPHYLAXIS - SCDs due to hx of brain aneurysm clipping DISPO d/c home ff up with PCP in 3-5 days Current Inpatient Medications: Current Inpatient Medications Medications (Trade) Dose Ordered Sig/Svitlana Route Start Time Stop Time Status Last Admin Dose Admin Ioversol (Optiray 320) 125 ml UD PRN IV 04/09/17 13:15 04/13/17 13:14 Sodium Chloride 1,000 ml @ 80 mls/hr [id number] IV 04/09/17 16:00 05/09/17 15:59 04/10/17 04:05 80 MLS/HR Acetaminophen (Tylenol Tab) 650 mg Q4H PRN PO 04/09/17 13:30 05/09/17 13:29 04/09/17 20:23 650 MG Ondansetron HCl (Zofran Inj) 4 mg Q6H PRN IV 04/09/17 13:30 05/09/17 13:29 Nitroglycerin (Nitrostat Tab) 0.4 mg UD PRN SL 04/09/17 13:30 05/09/17 13:29 Ceftriaxone Sodium 1 gm/ Dextrose 50 ml @ 100 mls/hr Q24H IV 04/10/17 12:00 04/20/17 11:59 04/10/17 13:35 100 MLS/HR Miscellaneous (Iv Fluids Completed) 1 ea PRN PRN N/A 04/09/17 13:45 04/09/18 13:44 Amlodipine Besylate (Norvasc Tab) 5 mg QAM PO 04/09/17 16:00 05/09/17 15:59 04/10/17 07:57 5 MG Aspirin (Ecotrin Tab) 162 mg QPM PO 04/09/17 21:00 05/09/17 20:59 04/09/17 20:22 162 MG Prednisone (PredniSONE TAB) 5 mg DAILY PO 04/09/17 16:00 05/09/17 15:59 04/10/17 07:55 5 MG Sertraline HCl (Zoloft Tab) 100 mg DAILY PO 04/10/17 09:00 05/10/17 08:59 04/10/17 07:55 100 MG Calcium/Vitamin D (Caltrate Plus Tab) 1 tab DAILY PO 04/10/17 09:00 05/10/17 08:59 04/10/17 07:56 1 TAB Pantoprazole Sodium (Protonix Tab) 40 mg DAILY PO 04/10/17 09:00 05/10/17 08:59 04/10/17 07:56 40 MG Tramadol HCl (Ultram Tab) 50 mg Q6H PRN PO 04/10/17 09:15 05/10/17 09:14 04/10/17 09:51 50 MG
[2017-04-10] MEDS ORDERED: CEFU1TAB33 PO (16:27)
--- NOTE | 2017-04-10 16:33 | Discharge Instructions ---
Discharge Instructions Date of Service Apr 10, 2017. Admission Reason for Admission: Syncope Discharge Discharge Diagnosis / Problem: Syncope Discharge Goals Goal(s): Diagnostic testing, Therapeutic intervention Activity Recommendations Activity Limitations: as noted below (Increase activity gradualyl as tolerated) Lifting Limitations: gradually increase as tolerated Exercise/Sports Limitations: gradually increase as tolerated . Instructions / Follow-Up Instructions / Follow-Up Please ensure adequate daily fluid intake. Call Primary Care Physician immediately if with weakness, dizziness, fever/ chills, problems with urination. Follow up with Dr. Santana (associate of Dr. Carreon) on Saturday04/15/17 at 10 :45am. Current Hospital Diet Patient's current hospital diet: AHA Diet (Heart Healthy) Discharge Diet Recommended Diet: AHA Diet (Heart Healthy) Pending Studies Studies pending at discharge: no Medical Emergencies . Who to Call and When: Medical Emergencies: If at any time you feel your situation is an emergency, please call 911 immediately. . Non-Emergent Contact Non-Emergency issues call your: Primary Care Provider Call Non-Emergent contact if: you have a fever, your pain is not controlled, you have any medication questions . 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 "Provider Documentation" section prepared by Liam Cortes. . VTE Core Measure Inpt VTE Proph given/why not?: SCD's
--- NOTE | 2017-04-10 16:39 | Discharge Summary ---
Discharge Summary Date of Service Apr 10, 2017. Discharge Summary Admission Date: Apr 09, 2017 at 14:50 Discharge Date: Apr 10, 2017 Discharge Disposition: Home Principal Diagnosis: SYNCOPE - likely vasovagal reflex, component of dehydration and UTI Secondary Diagnoses/Problems: Please refer to hospital course below. Procedures: CT SCAN OF THE BRAIN WITHOUT IV CONTRAST CLINICAL HISTORY: Headache. Syncope. History of aneurysm repair. COMPARISON STUDY: CT of the brain dated 01/23/[address] angiogram of the brain dated 08/03/2014. TECHNIQUE: Unenhanced axial CT scan of the brain is performed from the vertex to the skull base. Examination is degraded by streak artifact from metallic structures in the left temporal fossa. CT DOSE: 614.27 mGy.cm FINDINGS: Brain parenchyma: There are age-related involutional changes noting moderate patchy subcortical and periventricular microangiopathic change. Postoperative change is again seen in the left temporal fossa with encephalomalacia from a chronic infarct identified in the left basal ganglia and the medial left temporal lobe. A chronic lacunar infarct in the right cerebellar hemisphere is unchanged. These findings are unchanged the 2013. A chronic lacunar infarct in the left cerebellar hemisphere is new from 2013. There is no hemorrhage, mass effect, or evidence of acute territorial ischemia by CT criteria. Sanford-white matter is preserved. No extra-axial fluid collection is seen. Ventricles, sulci, cisterns: Prominent secondary to involutional change. Intracranial vasculature: There is atherosclerotic calcification of the cavernous carotid arteries. Calvarium: There are changes from left frontotemporal craniotomy. Additional postoperative change is also seen more inferiorly in the left temporal bone. No destructive calvarial lesion is seen. Sinuses and mastoids: Mild mucosal thickening is seen within the maxillary antra. The remaining paranasal sinuses are clear. The mastoid air cells are well pneumatized. Orbits: The bony orbits are grossly intact. There are bilateral ocular lens implants. IMPRESSION: 1. There is no hemorrhage, mass effect, or evidence of acute territorial ischemia by CT criteria. 2. Senescent changes, postoperative change, and remote infarct as above. These findings are similar to prior studies. CHEST CTA for PULMONARY ARTERIES CT DOSE: 337.25 mGycm HISTORY: Chest pain dyspnea TECHNIQUE: Multiaxial CT images of the chest were performed following the intravenous administration of contrast to evaluate the pulmonary arteries. Maximal intensity projection images were also obtained. COMPARISON STUDY: None. FINDINGS: Mild generalized aneurysmal dilatation of the thoracic aorta. Maximal diameter is 3.5 cm. Aortic root measures 3.3 cm. A major arterial vasculature enhances uniformly. There are no significant filling defects. Mild emphysematous changes present. Mild bibasilar atelectasis is noted. Apical pleural thickening and scarring is considered chronic. Several basilar pulmonary nodules are present measuring up to 1 cm at the left base. Follow-up 4-6 months is suggested. IMPRESSION: 1. Study is negative for pulmonary embolus. 2. Mild aneurysmal dilatation thoracic aorta. CAROTID ARTERY ULTRASOUND CLINICAL HISTORY: Syncope. COMPARISON STUDY: None. TECHNIQUE: Real-time, grayscale, and color Doppler sonography of the carotid and vertebral arteries was performed. Images were viewed in the transverse and longitudinal planes. FINDINGS: There is moderate atherosclerotic plaque. Velocity measurements are listed below. COMMON CAROTID PEAK SYSTOLIC VELOCITY (CM/S): RIGHT 93 LEFT 103 ICA PEAK SYSTOLIC VELOCITY (CM/S): RIGHT 66 LEFT 99 The systolic ratios between the internal to common carotid arteries are normal. Antegrade flow is seen in the vertebral arteries. The external carotid arteries are patent. Blood pressure in the right arm measured 140/75. Blood pressure in the left arm measured 131/71. IMPRESSION: No evidence of a hemodynamically significant stenosis. BILATERAL LOWER EXTREMITY VENOUS DOPPLER CLINICAL HISTORY: Syncope. COMPARISON STUDY: No previous studies for comparison. TECHNIQUE: Sonography of the deep venous system of the bilateral lower extremities was performed. Compression and augmentation were evaluated. FINDINGS: The bilateral common femoral, superficial femoral and popliteal veins were compressible. Augmentation was normal. Flow was shown within the deep calf vessels. IMPRESSION: No evidence of deep venous thrombus within the bilateral lower extremities. ECHO Interpretation Summary * Name: ZULEYMA BLACKWOOD Study Date: 04/10/2017 10:05 AM BP: 134/73 mmHg * Patient Location: [facility]\\S\\[id number] HR: 59 * : 1950 (M/d/yyyy) Gender: Female Height: 68 in * Age: 66 yrs Ethnicity: [place] Weight: 182 lb * Ordering Physician: Angie Coronel * Referring Physician: Self, Referred * Performed By: Moshe Solis RCS * * Reason For Study: Chest pain * -- Conclusions -- * The study was technically limited, but adequate for the referral indication. * The left ventricular wall motion is normal. * Left ventricular systolic function is normal. * Ejection Fraction = 65-70%. * Diastolic dysfunction, Grade II (pseudonormalization pattern). * There is no significant valvular heart disease. Procedure Details * A complete two-dimensional transthoracic echocardiogram was performed (2D, M-mode, Doppler and color flow Doppler). * A contrast injection of Definity was performed to improve assessment of LV function. * Contrast was injected into an intravenous site in the right arm. * One vial of Definity ultrasound contrast was diluted in normal saline to a total volume of 10 ml. A total of '4' ml of solution was administered during imaging. * Expiration date 1AUG. * Lot # [id number] of Definity utilized for procedure. * The attending nurse who injected the contrast agent was Bianca Villatoro RN. Left Ventricle * The left ventricle is normal in size. * There is normal left ventricular wall thickness. * Left ventricular systolic function is normal. * Ejection Fraction = 65-70%. * The left ventricular wall motion is normal. Right Ventricle * The right ventricle is normal size. * The right ventricular systolic function is normal as assessed by tricuspid annular plane systolic excursion (TAPSE) (normal >1.5 cm). Atria * The left atrial size is normal. * Right atrial size is normal. * There is no evidence of atrial septal defect, but resolution does not allow assessment for a patent foramen ovale. Mitral Valve * The mitral valve is normal. * There is no mitral valve stenosis. * Significant mitral regurgitation is absent. Tricuspid Valve * The tricuspid valve is normal. * There is no tricuspid stenosis. * Significant tricuspid regurgitation is absent. Aortic Valve * The aortic valve is trileaflet. * Aortic stenosis is absent. * There is no significant aortic regurgitation. Pulmonic Valve * The pulmonary valve is not well seen, but the Doppler examination is normal without significant regurgitation or stenosis. Great Vessels * The aortic root and proximal ascending aorta are normal sized. Pericardium/Pleural * There is no pericardial effusion. Great Vessels * Normal inferior vena cava diameter and respiratory variation suggests normal central venous pressure. Left Ventricular Diastolic Function * Diastolic dysfunction, Grade II (pseudonormalization pattern). Pending Studies/Follow-Up: Please refer to hospital course below. Medication Reconciliation New Medications: Cefuroxime Axetil (Cefuroxime Axetil) 250 Mg Tab 1 TAB PO BID for 3 Days, #6 TABS 0 Refills Continued Medications: Amlodipine (Norvasc) 5 Mg Tab 5 MG PO QAM, TAB Aspirin (Aspirin Ec) 81 Mg Tab 162 MG PO QPM take two 81mg tabs Calcium Citrate-Vitamin D (Calcium Citrate + D3 Max 315-250 mg-Unit) 1 Tab Tab 1 TAB PO DAILY Omeprazole (Omeprazole) 20 Mg Tab 1 TAB PO DAILY for 90 Days, #90 TAB 1 Refill Prednisone (Prednisone) 5 Mg Tab 5 MG PO DAILY Sertraline (Zoloft) 100 Mg Tab 1 TAB PO DAILY for 90 Days, #90 TAB 1 Refill Admission Information HPI (per Admitting provider): 66 year old female who presents to the ER after syncopal events. Patient reports that she woke up around 0400 this morning and had heart burn. She describes it as located on the left side of her chest and describes it as a burning sensation. She describes this as typical heart burn for her. She denies any chest pain, pressure, or radiation of the pain into her jaw, neck, or arm. Patient then got up and and took some TUMS and drank some soda. She reports resolution of the heart burn after this. On her way back to bed, she started to feel very lightheaded, nauseated, and generally weak. Once she reached the top of the stairs, she passed out. Her heard her fall and came to help her. She denies tongue biting or loss of bowel or bladder function. No unilateral weakness, numbness, tingling, slurred speech, or facial droop. When she tried to get up to go back to bed, she again passed out. She was able to get back to bed and fall asleep for a few hours. When she woke up she still felt poorly with lightheadedness and generalized weakness. Patient denies any associated shortness of breath or diaphoresis. Patient reports persistent UTI symptoms for the past several months. She reports she has been following with urology however has not been placed on antibiotics for several months. She reports urinary pressure and low back pain. She denies fever and chills. No vomiting or diarrhea. In the ER, U/A is consistent with UTI. WBC 14K. Vitals are stable. Head CT and CTA chest are negative for acute findings. She was given a dose of IV Rocephin. Physical Exam (per Admitting): General Appearance: no apparent distress Head: normocephalic Eyes: normal inspection ENT: hearing grossly normal Neck: supple, no JVD Respiratory/Chest: lungs clear, normal breath sounds, no respiratory distress Cardiovascular: regular rate, rhythm, no edema, normal peripheral pulses Abdomen/GI: normal bowel sounds, non tender, soft Extremities/Musculoskelatal: normal inspection, no calf tenderness Neurologic/Psych: no motor/sensory deficits, alert, normal mood/affect, oriented x 3 Skin: normal color, warm/dry Hospital Course SYNCOPE - likely vasovagal reflex, component of dehydration and UTI - patient presenting with syncopal events x 2 at home; occurred while patient was having heartburn - CT head negative; no focal deficits on exam Cardiac markers: negative Echo: The study was technically limited, but adequate for the referral indication. * The left ventricular wall motion is normal. * Left ventricular systolic function is normal. * Ejection Fraction = 65-70%. * Diastolic dysfunction, Grade II (pseudonormalization pattern). * There is no significant valvular heart disease. Carotid Doppler: negative CT chest: no PE Doppler US legs: no DVT Orthostatic VS: negative - given IV fluids, IV Ceftriaxone clinically improved overall - follow up with PCP in 3-5 days E coli UTI - U/A consistent with UTI - patient reports recurrent / persistent UTI symptoms for the past several months - has been following with Dr. Obando - outpatient urine culture 04/08/17 growing E. Coli sensitivve to Ceftri repeat urine culture as inpatient 04/09/17 gram neg bacilli - received 2 days of Ceftriaxone IV - discharge on 3 more days of Cefuroxime PO to complete 5 day course monitor Lung Nodules, Thoracic Aorta Dilatation - seen on CT chest FINDINGS: Mild generalized aneurysmal dilatation of the thoracic aorta. Maximal diameter is 3.5 cm. Aortic root measures 3.3 cm. A major arterial vasculature enhances uniformly. There are no significant filling defects. Mild emphysematous changes present. Mild bibasilar atelectasis is noted. Apical pleural thickening and scarring is considered chronic. Several basilar pulmonary nodules are present measuring up to 1 cm at the left base. Follow-up 4-6 months is suggested. IMPRESSION: 1. Study is negative for pulmonary embolus. 2. Mild aneurysmal dilatation thoracic aorta. 3. Mild emphysematous change. 4. Bibasilar parenchymal nodularity with follow-up CT recommended in 4-6 months. -- please follow up accordingly HX ATRIAL MYXOMA, ASD REPAIR, AORTIC VALVE REPAIR - Echo: -- Conclusions -- * The study was technically limited, but adequate for the referral indication. * The left ventricular wall motion is normal. * Left ventricular systolic function is normal. * Ejection Fraction = 65-70%. * Diastolic dysfunction, Grade II (pseudonormalization pattern). * There is no significant valvular heart disease. HX BRAIN ANEURYSM CLIPPING PMR - continue Prednisone HTN - BP controlled, continue amlodipine DEPRESSION - continue sertraline DVT PROPHYLAXIS - SCDs due to hx of brain aneurysm clipping DISPO d/c home ff up with PCP in 3-5 days Total time spent on discharge = 40 minutes This includes examination of the patient, discharge planning, medication reconciliation, and communication with other providers. Discharge Instructions Discharge Instructions Date of Service Apr 10, 2017. Admission Reason for Admission: Syncope Discharge Discharge Diagnosis / Problem: Syncope Discharge Goals Goal(s): Diagnostic testing, Therapeutic intervention Activity Recommendations Activity Limitations: as noted below (Increase activity gradualyl as tolerated) Lifting Limitations: gradually increase as tolerated Exercise/Sports Limitations: gradually increase as tolerated . Instructions / Follow-Up Instructions / Follow-Up Please ensure adequate daily fluid intake. Call Primary Care Physician immediately if with weakness, dizziness, fever/ chills, problems with urination. Follow up with Dr. Santana (associate of Dr. Carreon) on Saturday04/15/17 at 10 :45am. Current Hospital Diet Patient's current hospital diet: AHA Diet (Heart Healthy) Discharge Diet Recommended Diet: AHA Diet (Heart Healthy) Pending Studies Studies pending at discharge: no Medical Emergencies . Who to Call and When: Medical Emergencies: If at any time you feel your situation is an emergency, please call 911 immediately. . Non-Emergent Contact Non-Emergency issues call your: Primary Care Provider Call Non-Emergent contact if: you have a fever, your pain is not controlled, you have any medication questions . 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 "Provider Documentation" section prepared by Liam Cortes. . VTE Core Measure Inpt VTE Proph given/why not?: SCD's
[2017-04-10 16:41] VITALS: BP 121/77; PULSE 65; TEMP 36.6; O2SAT 93
--- NOTE | 2017-04-16 11:18 | CODING QUERY MEDICAL NECESSITY ---
SUPPORTING DIAGNOSIS NEEDED A supporting diagnosis is required for the test/procedure performed on this patient in order for us to be reimbursed by the patient's insurance. Please provide a supporting diagnosis for the following test/procedure listed below next to the test name along with your signature. *If there is no additional diagnosis for this patient that would support the following test/procedure please document that below next to the test/procedure. Test(s)/Procedure(s) that require a supporting diagnosis: * VENOUS DOPPLER STUDY DIAGNOSIS: Provider Signature: Date: Thank you Kinza Ortez [employer] Once completed, please kindly fax back to [phone] For questions please call [phone]
--- NOTE | 2017-05-06 08:12 | EDITING REQUIRED CODING QUERY ---
SUPPORTING DIAGNOSIS NEEDED A supporting diagnosis is required for the test/procedure performed on this patient in order for us to be reimbursed by the patient's insurance. Please provide a supporting diagnosis for the following test/procedure listed below next to the test name along with your signature. *If there is no additional diagnosis for this patient that would support the following test/procedure please document that below next to the test/procedure. Test(s)/Procedure(s) that require a supporting diagnosis: * VENOUS DOPPLER STUDY DIAGNOSIS: Provider Signature: Date: Thank you Kinza Ortez [employer] Once completed, please kindly fax back to [phone] For questions please call [phone]
== END 2017-04-10 17:22 | disposition home or self-care (01) ==
LOC: C.EDB 09:31 → ENRESERV 14:15 → C.MED 14:50
PROVIDERS: ADMIT Internal Medicine; ATTEND Internal Medicine
DX: R55 Syncope and collapse (principal); N39.0 Urinary tract infection, site not specified; I48.91 Unspecified atrial fibrillation; I10 Essential (primary) hypertension; M35.3 Polymyalgia rheumatica; R91.8 Other nonspecific abnormal finding of lung field; B96.20 Unspecified Escherichia coli [E. coli] as the cause of diseases classified elsewhere; I71.6 Thoracoabdominal aortic aneurysm, without rupture; F32.9 Major depressive disorder, single episode, unspecified; Z79.82 Long term (current) use of aspirin; Z79.899 Other long term (current) drug therapy; I67.1 Cerebral aneurysm, nonruptured; D73.5 Infarction of spleen; I63.9 Cerebral infarction, unspecified

== ENCOUNTER → 2017-09-04 | Outpatient (CLI) | payer OTHER ==
[~2017-09-04] MED LIST changes: +CALC-602 PO; +CEFU1TAB33 PO; -CHOL100010 PO; +OMEP20TA PO; +OPTIRAY 320 IV PRN; +PRED-301 PO; +SERT-234 PO; -SERT50TA PO; -SULF800T23 PO
--- NOTE | 2017-09-04 09:39 | DIAGNOSTIC IMAGING REPORT ---
CHEST ANGIO WITH CONTRAST HISTORY: 66 years-old Female F/U TO LUNG NODULE,POSSIBLE THORACIC AORTIC ANEURY follow-up study to assess pulmonary nodule. History of thoracic aortic aneurysm COMPARISON: CTA of the chest 04/09/2017 TECHNIQUE: CT jog view of the chest was obtained following the intravenous administration of 93 mL Optiray 320. 3-D coronal and sagittal MIPS were obtained from the axial data set and submitted for review. All measurements were obtained according to NASCET criteria. A dose lowering technique was used consistent with the principals of MIKE. FINDINGS: CTA: There is mild multichamber cardiac enlargement. Prior median sternotomy and CABG. Ascending thoracic aorta appears unchanged from comparison study measuring up to 3.4 x 3.5 cm. There is mild fusiform dilation of the aortic isthmus and proximal portion of the descending thoracic aorta which measures 3.4 cm transversely, unchanged. No dissection. There is moderate plaquing of the aortic arch. Imaged great vessels appear to be patent. The opacified pulmonary artery is unremarkable. There is mild fusiform dilation of the mid splenic artery with peripheral calcification measuring 6 mm as seen on image [address] CHEST: No dominant thyroid nodule identified. There is no pathologic appearing adenopathy about the chest. There is mild biapical pleural-parenchymal scarring without pneumothorax or pleural effusion. Mild subsegmental dependent bibasilar atelectasis. Evaluation for pulmonary nodules is mildly limited secondary to respiratory motion. The previously noted 10 mm solid nodule of the inferior segment lingula has improved with only a very small groundglass opacity measuring 6 mm within this distribution on image 197 series 4 suggesting area of pleural-parenchymal scarring. Previously noted 6 mm groundglass nodule of the right lower lobe is again seen on image 197 series 4 which is unchanged. Previously noted 6 mm solid nodule of the basal right lower lobe abutting the diaphragm is not clearly seen. There is a groundglass 7 x 3 mm groundglass nodule of the right upper lobe, image 100 series 4 which appears unchanged. No new or enlarging pulmonary nodules identified. Central airways are patent. No acute abnormality of the imaged upper abdomen. Soft tissues are unremarkable. Bones appear intact. IMPRESSION: 1. Unchanged mild dilation of the distal aortic arch and proximal descending thoracic aorta measuring up to 3.4 cm. No dissection. 2. Decrease size of the pulmonary nodule in the inferior segment left lower lobe, now groundglass measuring 6 mm suggesting areas of scarring. Additional groundglass nodules bilaterally as above are unchanged, largest of which measures 7 x 3 mm within the right upper lobe. 3. Biapical pleural-parenchymal scarring. 4. Prior median sternotomy and CABG. Please refer to below summary of Fleischner criteria recommendations for follow-up of incidental CT nodules (Mayte Perdomo, Guidelines for management of small pulmonary nodules detected on CT scans: A statement from the Fleischner Society, Radiology 237: [phone].) Note: newly detected indeterminate nodule in persons 35 years of age or older. * Low risk patients: minimal or absent history of smoking and/or other known risk factors * high risk patients: history of smoking or of other known risk factors (e.g. first degree relative with lung cancer, or exposure to asbestos, radon, uranium) * if a nodule up to 8 mm is partly solid or is ground glass further follow-up is required after 24 months to exclude possible slow growing adenocarcinoma (AWAIS) SUBSOLID NODULES Solitary pure ground-glass nodule * nodule size <6 mm - no CT follow-up required * nodule size >=6 mm - follow-up CT at 6-12 months, then every 2 years until 5 years Solitary part-solid nodule * nodule size <6 mm - no CT follow-up required * nodule size >=6 mm - follow-up CT at 3-6 months. If unchanged, and solid component remains <6 mm, then annual follow-up for 5 years Multiple subsolid nodules * nodule size <6 mm - follow-up CT at 3-6 months, consider further follow-up at 2 and 4 years if stable * nodule size >=6 mm - follow-up CT at 3-6 months, subsequent management based on the most suspicious nodule(s) The above report was generated using voice recognition software. It may contain grammatical, syntax or spelling errors. Electronically signed by: Navarro Boyd M.D. 09/04/2017 9:38 AM Dictated Date/Time: 09/04/2017 9:27 AM
== END | disposition home or self-care (01) ==
LOC: C.CTS 08:42
PROVIDERS: ATTEND Internal Medicine
DX: I71.2 Thoracic aortic aneurysm, without rupture (principal); R91.1 Solitary pulmonary nodule; Z95.1 Presence of aortocoronary bypass graft

== ENCOUNTER → 2017-09-12 | Outpatient (CLI) | payer OTHER ==
[~2017-09-12] MED LIST changes: -OPTIRAY 320 IV PRN
--- NOTE | 2017-09-12 14:26 | MAMMOGRAPHY REPORT ---
BILATERAL DIGITAL SCREENING MAMMOGRAM WITH CAD: 09/12/2017 TECHNIQUE: Current study was also evaluated with a Computer Aided Detection (CAD) system. Bilateral CC and MLO views were obtained. COMPARISON: Comparison is made to exams dated: 09/10/2016 mammogram, 09/07/2015 mammogram, 09/15/2014 ultrasound, 09/15/2014 mammogram, 06/29/2013 mammogram, and 06/15/2013 mammogram - [facility]. BREAST COMPOSITION: The tissue of both breasts is heterogeneously dense, which may obscure small mas ses. FINDINGS: No suspicious masses, calcifications, or areas of architectural distortion are noted in ei ther breast. There has been no significant interval change compared to prior exams. There is stable architectural distortion in the right upper outer quadrant from prior surgical excision. Bilateral b enign-appearing calcifications are not significantly changed. IMPRESSION: ACR BI-RADS CATEGORY 2: BENIGN There is no mammographic evidence of malignancy. A 1 year screening mammogram is recommended. The pa tient will receive written notification of the results. Approximately 10% of breast cancers are not detected with mammography. A negative mammographic report should not delay biopsy if a clinically suggestive mass is present. Joan Gonzalez M.D. /:09/12/2017 09:42:19 Label Sewer: Joan CHAUDHARY(R)(M), [facility] letter sent: Normal 1/2 BI-RADS Code: ACR BI-RADS Category 2: Benign
== END | disposition home or self-care (01) ==
LOC: C.MAMM 09:26
PROVIDERS: ATTEND Internal Medicine
DX: Z12.31 Encounter for screening mammogram for malignant neoplasm of breast (principal)

== ENCOUNTER 2018-10-01 10:32 | Observation (INO) ==
--- NOTE | 2018-10-01 11:25 | XRay Report ---
XR chest 1V portable CLINICAL HISTORY: 68 years-old Female presenting with CP. TECHNIQUE: Portable upright AP view of the chest was obtained. COMPARISON: Chest x-ray from 04/09/[address] from 03/03/2018. FINDINGS: Median sternotomy wires and mediastinal surgical clips. Atherosclerosis of the aortic arch. Cardiac s ilhouette normal in size. No focal opacity. The previously noted groundglass nodules on CT are not ap parent by radiograph. No large effusion or pneumothorax. Osseous structures normal. Upper abdomen nor mal. IMPRESSION: 1. No acute cardiopulmonary disease. Electronically signed by: Babatunde Loya M.D. 10/01/2018 11:23 AM
[2018-10-01 11:36] LABS: Basophils # (auto) 0.06 K/uL (0-0.2); Basophils % (auto) 0.7 %; Eosinophils # (auto) 0.25 K/uL (0-0.5); Eosinophils % (auto) 2.8 %; Hemoglobin 13.6 g/dL (12.0-16.0); Immature Granulocytes # (auto) 0.01 K/uL (0.00-0.02); Immature Granulocytes % (auto) 0.1 %; Lymphocytes # (auto) 3.61 K/uL (1.2-3.4); Lymphocytes % (auto) 39.7 %; Mean Corpuscular Hgb Conc 32.4 g/dL (32-36); Mean Corpuscular Volume 94.4 fL (80-100); Mean Platelet Volume 10.9 fL (7.4-10.4); Monocytes # (auto) 0.91 K/uL (0.11-0.59); Neutrophils # (auto) 4.25 K/uL (1.4-6.5); Neutrophils % (auto) 46.7 %; Platelet Count 225 K/uL (130-400); RDW Coefficient of Variation 12.7 % (11.5-14.5); RDW Standard Deviation 43.7 fL (36.4-46.3); Red Blood Count 4.45 M/uL (4.2-5.4); White Blood Count 9.09 K/uL (4.8-10.8)
[2018-10-01 11:39] LABS: Partial Thromboplastin Time 25.4 Seconds (21.0-31.0); Prothrombin Time 10.4 Seconds (9.0-12.0)
[2018-10-01 11:44] LABS: Alanine Aminotransferase 31 U/L (12-78); Albumin Level 3.6 gm/dl (3.4-5.0); Aspartate Aminotransferase 22 U/L (15-37); BUN Creatinine Ratio 20.9 (10-20); Blood Urea Nitrogen 21 mg/dl (7-18); Calcium 8.6 mg/dl (8.5-10.1); Carbon Dioxide 31 mmol/L (21-32); Chloride 104 mmol/L (98-107); Creatinine Clr Calc Pharmacy 57.8 ml/min; Est GFR (African American) 64.5; Est GFR (Non-African American) 55.7; Glucose 83 mg/dl (70-99); Potassium 4.1 mmol/L (3.5-5.1); Sodium 140 mmol/L (136-145)
[2018-10-01 11:48] LABS: Alkaline Phosphatase 81 U/L (45-117); Bilirubin,Total 1.2 mg/dl (0.2-1); Globulin 3.6 gm/dl (2.5-4.0); Total Protein 7.2 gm/dl (6.4-8.2); Troponin I < 0.015 ng/ml (0-0.045)
--- NOTE | 2018-10-01 16:37 | History & Physical Report ---
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 -Left sided CP with radiation to axilla, associated with nausea and SOB -R/o ACS; risk factors include HTN, HLD -Initial troponin negative -EKG- without acute ST changes -CXR-no acute cardiopulmonary findings -Trend serial cardiac enzymes -Jun 2018 echo with normal left ventricular wall motion, EF of 55-59%, mild aortic valve sclerosis and unchanged mild mitral regurgitation and mild tricuspid regurgitation -Given evening dose of aspirin, continue statin -Sublingual NTG and GI cocktail PRN -Discussed with cardiology -Will repeat 2D resting echo and plan for exercise stress test in AM -NPO after midnight (2) Dysuria: Intermittent urinary symptoms x 3 weeks -Ordered UA with reflexive culture if indicated (3) 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 Solares in clinic (4) HTN (hypertension): Mildly elevated BP in setting of intermittent pain, anxiety -Continue home amlodipine (5) PMR (polymyalgia rheumatica): Stable. Follows with [facility] rheumatology -Continue prednisone (6) Ascending aorta dilation: Mild dilatation of the proximal ascending aorta was noted with max of 3.[address] February [address] chest -Stable compared to prior CT scan (7) Depression: Continue Celexa DVT Ppx: SQ heparin Code status: FULL per discussion with patient PCP: Velma Dispo: Telemetry observation. Plan to return home once medically stable. Patient seen in collaboration with Dr. Veronica. Please see addendum. 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 Patient was awakened with pain 3 nights ago on her left chest wall that she describes as burning and sharp with radiation to left axilla. Denies any radiation to jaw or arms. Associated with nausea and shortness of breath but denies diaphoresis or vomiting. Episodes of pain last for a few minutes at a time. Tried taking Tums without any relief but states that pain feels like acid reflux. Denies any history of CAD or [place]. Follows with Dr. Solares and cardiology clinic for history of left atrial myxoma discovered and excised at [facility] in May 2012. Denies any chest pain currently. No fever, chills, lightheadedness, headache, palpitations, shortness of breath, abdominal pain, nausea, vomiting. Endorses dysuria and chronic constipation. Had a pre-surgical cardiac catheterization in May 2012 with normal coronary arteries. Does have mild coronary artery calcification noted on CT chest. Echo performed in June 2018 with normal left ventricular wall motion , EF of 55-59%, mild aortic valve sclerosis and unchanged mild mitral regurgitation and mild tricuspid regurgitation. Allergies Allergy/AdvReac Type Severity Reaction Status Date / Time lisinopril AdvReac Intermediate COUGH Verified 10/01/18 12:25 baclofen AdvReac Mild N/V Verified 10/01/18 12:25 Home Medications Home Medications Medication Instructions Recorded Confirmed Type amlodipine 5 mg PO DAILY 10/01/18 10/01/18 History aspirin 162 mg PO HS 10/01/18 10/01/18 History atorvastatin 20 mg PO PM 10/01/18 10/01/18 History calcium carbonate-vitamin D3 1 tab PO QAM 10/01/18 10/01/18 History [Caltrate 600 + D] citalopram 20 mg PO QAM 10/01/18 10/01/18 History ibuprofen 200 mg PO QID PRN 10/01/18 10/01/18 History prednisone 5 mg PO QAM 10/01/18 10/01/18 History pantoprazole 40 mg PO BID 30 Days #60 tab 10/02/18 Rx Past Med/Surg History Medical History Depression (Chronic) PMR (polymyalgia rheumatica) (Chronic) HTN (hypertension) (Chronic) Lacunar infarction (Chronic) Atrial fibrillation (Chronic) "post op, no reoccurrences" Splenic infarct (Resolved) Brain aneurysm (Chronic) s/p L craniotomy, clipping of L MCA aneurysm at 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 in May 2012 Surgical History S/P craniotomy (Resolved) H/O aortic valve repair (Resolved) History of cataract surgery (Chronic) History of tubal ligation (Chronic) H/O atrial septal defect repair (Resolved) Social History Current Living Situation: Spouse Other Information That Helps Us Care for You: No Feels Safe at Home: Yes Safety Concerns: Feels Safe At This Time Smoking Status: Former smoker Smoking End Date: 2007 Hx Alcohol Use: No Hx Substance Use: No Beliefs That Will Affect Care: None Preferred Language: Citizen Of [place] Review of Systems All systems reviewed & are unremarkable except as noted in HPI & below Physical Exam 2 Vital Signs (Past 24 Hours): Last Vital Signs Temp 36.4 C L 10/01/18 10:36 Pulse 54 L 10/01/18 15:56 Resp 17 10/01/18 15:56 BP 163/82 H 10/01/18 15:56 Pulse Ox 96 10/01/18 15:56 Physical Exam: General Appearance: WD/WN, no apparent distress, resting comfortably Head: normocephalic, atraumatic Eyes: normal inspection, PERRL, EOMI ENT: hearing grossly normal, pharynx normal (moist mucous membranes) Neck: supple, no JVD, no adenopathy Respiratory/Chest: No chest wall tenderness. Lungs clear to auscultation. No wheezes, rales or rhonci. No respiratory distress or accessory muscle use Cardiovascular: regular rate, rhythm, systolic murmur, normal peripheral pulses , no peripheral edema Abdomen/GI: normal bowel sounds, soft, non-tender to palpation Extremities/Musculoskelatal: normal inspection, no calf tenderness, normal capillary refill Neurologic/Psych: alert, normal mood/affect, oriented x 3 Skin: normal color, warm/dry Results & Data Laboratory Results Short CBC 10/01/18 Range/Units 10:50 WBC 9.09 (4.8-10.8) K/uL Hgb 13.6 (12.0-16.0) g/dL Hct 42.0 (37-47) % Plt Count 225 (130-400) K/uL BMP 10/01/18 10:50 Sodium 140 Potassium 4.1 Chloride 104 Carbon Dioxide 31 BUN 21 H Creatinine 1.02 Glucose 83 Calcium 8.6 Cardiac Enzymes 10/01/18 Range/Units 10:50 Troponin I < 0.015 (0-0.045) ng/ml Liver Function 10/01/18 Range/Units 10:50 Total Bilirubin 1.2 H (0.2-1) mg/dl AST 22 (15-37) U/L ALT 31 (12-78) U/L Alkaline Phosphatase 81 (45-117) U/L Albumin 3.6 (3.4-5.0) gm/dl Diagnostic Findings CXR: IMPRESSION: 1. No acute cardiopulmonary disease. ECG Rhythm: sinus bradycardia Code Status & VTE Plan Code Status FULL VTE Prophylaxis Plan VTE Prophylaxis will be ordered: Yes Supervising Physician Co-Signing Physician Notes I saw this patient with the physician esl instructional assistant, I participated in the history, physical, review of systems, and physical exam. I reviewed the medications with the patient and the physician esl instructional assistant and helped reconcile the medications. I helped take a detailed family and social history as well. I formulated the assessment and plan personally with the physician esl instructional assistant and went over it with the patient. MD Jeremías
[2018-10-01] MEDS ORDERED: POLYETHYLENE (MIRALAX) 17 GM PACK PO PRN (17:52)
[2018-10-01] MEDS ORDERED: IBUPROFEN 200 MG TAB PO PRN (17:52)
[2018-10-01] MEDS ORDERED: ACETAMINOPHEN 325 MG TAB PO PRN (17:52)
[2018-10-01] MEDS ORDERED: ALUMINUM/MAGNESIUM SUSP 30 ML UDC PO PRN (17:52)
[2018-10-01] MEDS ORDERED: NITROGLYCERIN SL 0.4 MG/TAB TAB SL PRN (17:52)
[2018-10-01] MEDS: ASPIRIN 81 MG ECTAB PO SCH ×3 (18:33→22:45)
--- NOTE | 2018-10-01 19:27 | Emergency Department Note ---
Entered by Tobias Donovan acting as a scribe for Gerson Rush MD ED Provider Note CHIEF COMPLAINT: Chest Pain HISTORY OF PRESENT ILLNESS: The patient is a 68 year old female who presents to the Emergency Room with complaints of intermittent chest pain that began a few days ago. The patient states that she has been experiencing chest pain that radiates into her left side and into her upper back. When the episodes onset they last for a few minutes before spontaneously resolving. She rates the pain as an 8/10 in severity at its worst. There is no worsening/exacerbation of the pain with deep inspiration. She does have a significant cardiac history including atrial fibrillation, aortic valve repair, and atrial septal defect repair. However, she has no history of blockages or stent placement. Her last stress test was 1 year ago, which was unremarkable. Pt denies LOC, headache, fevers, chills, diaphoresis, visual changes, neck pain , nausea, vomiting, abdominal pain, back pain, melena, hematochezia, urinary symptoms, numbness, weakness, lymphadenopathy, rash, or other complaints. REVIEW OF SYSTEMS: See HPI for pertinent positives and negatives. A total of ten systems were reviewed and were otherwise negative. PMHx/PSHx: PMR HTN Lacunar infarction Atrial fibrillatin Splenic infarct Brain aneurysm Myxoma of heart Aortic valve repair Cataract surgery Tubal ligation Atrial septal defect. SOCIAL HISTORY: Patient lives at home. PHYSICAL EXAM: GENERAL: Awake, alert, well-appearing, in no distress HENT: Normocephalic, atraumatic. Oropharynx unremarkable. EYES: PERRL. Normal conjunctiva. Sclera non-icteric. NECK: Inspection normal. Non-tender. Supple. No nuchal rigidity. FROM. No masses. RESPIRATORY: Clear to auscultation. No wheezes. No rales. Normal respiratory effort. CARDIAC: Borderline bradycardic rate. Normal rhythm. No murmurs. No rubs. Extremities warm and well perfused. Pulses equal. No JVD. GI: Soft, non-distended. No tenderness to palpation. No rebound or guarding. No masses. RECTAL: Deferred. MUSCULOSKELETAL: Atraumatic. Chest examination reveals no tenderness. The back is symmetrical on inspection without obvious abnormality. There is no CVA tenderness to palpation. No joint edema. LOWER EXTREMITIES: Calves are equal size bilaterally and non-tender. No edema. No discoloration. NEURO: Normal sensorium. No sensory or motor deficits noted. SKIN: No rash or jaundice noted. EMERGENCY DEPARTMENT COURSE: 1128: Past medical records reviewed. The patient was evaluated in room C4, and a complete history and physical examination were performed. 1356: I reviewed the patient's case with Dr. Barkley [facility]. He will see if he can take the patient for a stress test today. 1430: I checked on the patient she is stable. 1437: Dr. Barkley is unable take the patient for a stress test. 1503: I updated the patient and checked on him. She is agreeable to an inpatient stay. 1536: I [facility] the [facility] She will evaluate the patient for further management. MEDICAL DECISION MAKING: Prior records/ancillary studies reviewed. Triage Nursing notes reviewed and agree them. Additional history obtained from the family. The patient's history was concerning for chest pain. Differential diagnosis: Etiologies such as cardiac ischemia, aortic dissection, pulmonary embolism, pneumonia, pneumothorax, musculoskeletal, infections, pericarditis, myocarditis , esophageal rupture, gastrointestinal, as well as others were entertained. Physical examination: As above. ER treatment provided: No medication given On reassessment the patient felt better. Diagnostic interpretation by me: The electrocardiogram was negative for pathologic change. The labs revealed an unremarkable CBC and chemistry panel. Cardiac troponin negative. LFTs and lipase negative. Imaging studies: Chest x-ray as above Consultation: Consultation was made with cardiology. The patient will need formal evaluation given her cardiac history. A consultation was placed with the hospitalist. The case was discussed and diagnostics were reviewed. The patient was evaluated in the ER for further treatment. IMPRESSION: Left sided chest pain. PLAN: Admitted to [facility]. The scribe's documentation has been prepared under my direction and personally reviewed by me in its entirety. I confirm that the note above accurately reflects all work, treatment, procedures, and medical decision making performed by me. 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 Surgical History S/P craniotomy (Resolved) H/O aortic valve repair (Resolved) History of cataract surgery (Chronic) History of tubal ligation (Chronic) H/O atrial septal defect repair (Resolved) Social History Current Living Situation: Spouse Other Information That Helps Us Care for You: No Feels Safe at Home: Yes Safety Concerns: Feels Safe At This Time Smoking Status: Former smoker Smoking End Date: 2007 Hx Alcohol Use: No Hx Substance Use: No Beliefs That Will Affect Care: None Preferred Language: Ukrainian Communication Ability: Effective Results & Data Vital Signs Vital Signs - 24 hr 10/01/18 10:36 10/01/18 10:46 10/01/18 10:50 Temperature 36.4 C L Temperature Source Oral Sepsis Recent Fever Within 48 Hours No Sepsis New/Unexplained Change in Mental Status No Sepsis Action Taken by Nursing No Action Required Pulse Rate 55 L 56 L 57 L Pulse Rate [Finger] Pulse Rhythm [Finger] Pulse Strength [Finger] Respiratory Rate 17 15 13 Respiratory Effort / Characteristics Non-Labored Respiratory Depth Normal Respiratory Pattern Regular Blood Pressure 139/74 Blood Pressure [Right Arm] Blood Pressure Mean 95 Blood Pressure Mean [Right Arm] Blood Pressure Position Sitting Pulse Oximetry 100 Oxygen Delivery Method Room Air 10/01/18 10:52 10/01/18 10:55 10/01/18 11:00 Temperature Temperature Source Sepsis Recent Fever Within 48 Hours Sepsis New/Unexplained Change in Mental Status Sepsis Action Taken by Nursing Pulse Rate 55 L 51 L Pulse Rate [Finger] 54 L Pulse Rhythm [Finger] Pulse Strength [Finger] Respiratory Rate 13 25 H 13 Respiratory Effort / Characteristics Respiratory Depth Respiratory Pattern Blood Pressure 150/74 H Blood Pressure [Right Arm] 150/74 H Blood Pressure Mean 99 Blood Pressure Mean [Right Arm] 99 Blood Pressure Position Pulse Oximetry 96 95 99 Oxygen Delivery Method Room Air 10/01/18 11:01 10/01/18 11:10 10/01/18 11:20 Temperature Temperature Source Sepsis Recent Fever Within 48 Hours Sepsis New/Unexplained Change in Mental Status Sepsis Action Taken by Nursing Pulse Rate 54 L 57 L 52 L Pulse Rate [Finger] Pulse Rhythm [Finger] Pulse Strength [Finger] Respiratory Rate 8 L 24 18 Respiratory Effort / Characteristics Respiratory Depth Respiratory Pattern Blood Pressure 148/76 H Blood Pressure [Right Arm] Blood Pressure Mean 100 Blood Pressure Mean [Right Arm] Blood Pressure Position Pulse Oximetry 97 99 97 Oxygen Delivery Method 10/01/18 11:30 10/01/18 11:32 10/01/18 11:40 Temperature Temperature Source Sepsis Recent Fever Within 48 Hours Sepsis New/Unexplained Change in Mental Status Sepsis Action Taken by Nursing Pulse Rate 55 L 54 L 52 L Pulse Rate [Finger] Pulse Rhythm [Finger] Pulse Strength [Finger] Respiratory Rate 14 19 14 Respiratory Effort / Characteristics Respiratory Depth Respiratory Pattern Blood Pressure 170/69 H Blood Pressure [Right Arm] Blood Pressure Mean 102 Blood Pressure Mean [Right Arm] Blood Pressure Position Pulse Oximetry 98 98 Oxygen Delivery Method 10/01/18 11:50 10/01/18 12:00 10/01/18 12:01 Temperature Temperature Source Sepsis Recent Fever Within 48 Hours Sepsis New/Unexplained Change in Mental Status Sepsis Action Taken by Nursing Pulse Rate 54 L 52 L 52 L Pulse Rate [Finger] Pulse Rhythm [Finger] Pulse Strength [Finger] Respiratory Rate 14 16 16 Respiratory Effort / Characteristics Respiratory Depth Respiratory Pattern Blood Pressure 140/79 Blood Pressure [Right Arm] Blood Pressure Mean 99 Blood Pressure Mean [Right Arm] Blood Pressure Position Pulse Oximetry 96 97 96 Oxygen Delivery Method 10/01/18 12:02 10/01/18 12:07 10/01/18 12:10 Temperature Temperature Source Sepsis Recent Fever Within 48 Hours Sepsis New/Unexplained Change in Mental Status Sepsis Action Taken by Nursing Pulse Rate 52 L 54 L Pulse Rate [Finger] 54 L Pulse Rhythm [Finger] Pulse Strength [Finger] Respiratory Rate 15 21 17 Respiratory Effort / Characteristics Respiratory Depth Respiratory Pattern Blood Pressure Blood Pressure [Right Arm] 140/79 Blood Pressure Mean Blood Pressure Mean [Right Arm] 99 Blood Pressure Position Pulse Oximetry 96 94 94 Oxygen Delivery Method Room Air 10/01/18 12:20 10/01/18 12:30 10/01/18 12:31 Temperature Temperature Source Sepsis Recent Fever Within 48 Hours Sepsis New/Unexplained Change in Mental Status Sepsis Action Taken by Nursing Pulse Rate 55 L 54 L 54 L Pulse Rate [Finger] Pulse Rhythm [Finger] Pulse Strength [Finger] Respiratory Rate 8 L 19 10 L Respiratory Effort / Characteristics Respiratory Depth Respiratory Pattern Blood Pressure 147/72 H Blood Pressure [Right Arm] Blood Pressure Mean 97 Blood Pressure Mean [Right Arm] Blood Pressure Position Pulse Oximetry 93 95 95 Oxygen Delivery Method 10/01/18 12:40 10/01/18 13:18 10/01/18 13:19 Temperature Temperature Source Sepsis Recent Fever Within 48 Hours Sepsis New/Unexplained Change in Mental Status Sepsis Action Taken by Nursing Pulse Rate 54 L 54 L 54 L Pulse Rate [Finger] 54 L Pulse Rhythm [Finger] Pulse Strength [Finger] Respiratory Rate 3 L 18 21 Respiratory Effort / Characteristics Respiratory Depth Respiratory Pattern Blood Pressure 145/79 H Blood Pressure [Right Arm] 145/79 H Blood Pressure Mean 101 Blood Pressure Mean [Right Arm] 101 Blood Pressure Position Pulse Oximetry 94 96 91 Oxygen Delivery Method Room Air 10/01/18 13:20 10/01/18 13:30 10/01/18 13:31 Temperature Temperature Source Sepsis Recent Fever Within 48 Hours Sepsis New/Unexplained Change in Mental Status Sepsis Action Taken by Nursing Pulse Rate 56 L 57 L 51 L Pulse Rate [Finger] Pulse Rhythm [Finger] Pulse Strength [Finger] Respiratory Rate 13 21 12 Respiratory Effort / Characteristics Respiratory Depth Respiratory Pattern Blood Pressure 157/70 H Blood Pressure [Right Arm] Blood Pressure Mean 99 Blood Pressure Mean [Right Arm] Blood Pressure Position Pulse Oximetry 96 97 97 Oxygen Delivery Method 10/01/18 13:40 10/01/18 13:50 10/01/18 14:00 Temperature Temperature Source Sepsis Recent Fever Within 48 Hours Sepsis New/Unexplained Change in Mental Status Sepsis Action Taken by Nursing Pulse Rate 54 L 52 L 54 L Pulse Rate [Finger] Pulse Rhythm [Finger] Pulse Strength [Finger] Respiratory Rate 12 12 16 Respiratory Effort / Characteristics Respiratory Depth Respiratory Pattern Blood Pressure Blood Pressure [Right Arm] Blood Pressure Mean Blood Pressure Mean [Right Arm] Blood Pressure Position Pulse Oximetry 95 95 94 Oxygen Delivery Method 10/01/18 14:01 10/01/18 14:10 10/01/18 14:20 Temperature Temperature Source Sepsis Recent Fever Within 48 Hours Sepsis New/Unexplained Change in Mental Status Sepsis Action Taken by Nursing Pulse Rate 53 L 54 L 53 L Pulse Rate [Finger] Pulse Rhythm [Finger] Pulse Strength [Finger] Respiratory Rate 16 11 L 17 Respiratory Effort / Characteristics Respiratory Depth Respiratory Pattern Blood Pressure 148/77 H Blood Pressure [Right Arm] Blood Pressure Mean 100 Blood Pressure Mean [Right Arm] Blood Pressure Position Pulse Oximetry 95 95 95 Oxygen Delivery Method 10/01/18 14:30 10/01/18 14:31 10/01/18 14:40 Temperature Temperature Source Sepsis Recent Fever Within 48 Hours Sepsis New/Unexplained Change in Mental Status Sepsis Action Taken by Nursing Pulse Rate 54 L 54 L 52 L Pulse Rate [Finger] Pulse Rhythm [Finger] Pulse Strength [Finger] Respiratory Rate 17 13 12 Respiratory Effort / Characteristics Respiratory Depth Respiratory Pattern Blood Pressure 163/76 H Blood Pressure [Right Arm] Blood Pressure Mean 105 Blood Pressure Mean [Right Arm] Blood Pressure Position Pulse Oximetry 97 95 95 Oxygen Delivery Method 10/01/18 14:50 10/01/18 15:00 10/01/18 15:01 Temperature Temperature Source Sepsis Recent Fever Within 48 Hours Sepsis New/Unexplained Change in Mental Status Sepsis Action Taken by Nursing Pulse Rate 54 L 53 L 54 L Pulse Rate [Finger] 54 L Pulse Rhythm [Finger] Pulse Strength [Finger] Respiratory Rate 18 17 15 Respiratory Effort / Characteristics Respiratory Depth Respiratory Pattern Blood Pressure 150/77 H Blood Pressure [Right Arm] 163/76 H Blood Pressure Mean 101 Blood Pressure Mean [Right Arm] 105 Blood Pressure Position Pulse Oximetry 95 95 96 Oxygen Delivery Method Room Air 10/01/18 15:11 10/01/18 15:55 10/01/18 15:56 Temperature Temperature Source Sepsis Recent Fever Within 48 Hours Sepsis New/Unexplained Change in Mental Status Sepsis Action Taken by Nursing Pulse Rate 58 L 55 L 63 Pulse Rate [Finger] 54 L Pulse Rhythm [Finger] Pulse Strength [Finger] Respiratory Rate 15 20 23 Respiratory Effort / Characteristics Respiratory Depth Respiratory Pattern Blood Pressure 163/82 H Blood Pressure [Right Arm] 163/82 H Blood Pressure Mean 109 Blood Pressure Mean [Right Arm] 109 Blood Pressure Position Pulse Oximetry 96 94 Oxygen Delivery Method Room Air 10/01/18 16:00 10/01/18 16:01 10/01/18 16:10 Temperature Temperature Source Sepsis Recent Fever Within 48 Hours Sepsis New/Unexplained Change in Mental Status Sepsis Action Taken by Nursing Pulse Rate 56 L 55 L 54 L Pulse Rate [Finger] Pulse Rhythm [Finger] Pulse Strength [Finger] Respiratory Rate 20 21 18 Respiratory Effort / Characteristics Respiratory Depth Respiratory Pattern Blood Pressure 144/69 H Blood Pressure [Right Arm] Blood Pressure Mean 94 Blood Pressure Mean [Right Arm] Blood Pressure Position Pulse Oximetry 94 95 96 Oxygen Delivery Method 10/01/18 16:20 10/01/18 16:30 10/01/18 16:32 Temperature Temperature Source Sepsis Recent Fever Within 48 Hours Sepsis New/Unexplained Change in Mental Status Sepsis Action Taken by Nursing Pulse Rate 54 L 56 L 59 L Pulse Rate [Finger] Pulse Rhythm [Finger] Pulse Strength [Finger] Respiratory Rate 18 18 21 Respiratory Effort / Characteristics Respiratory Depth Respiratory Pattern Blood Pressure 162/90 H Blood Pressure [Right Arm] Blood Pressure Mean 114 Blood Pressure Mean [Right Arm] Blood Pressure Position Pulse Oximetry 99 97 96 Oxygen Delivery Method 10/01/18 16:35 10/01/18 16:40 10/01/18 16:50 Temperature Temperature Source Sepsis Recent Fever Within 48 Hours Sepsis New/Unexplained Change in Mental Status Sepsis Action Taken by Nursing Pulse Rate 58 L 58 L Pulse Rate [Finger] Pulse Rhythm [Finger] Pulse Strength [Finger] Respiratory Rate 23 21 Respiratory Effort / Characteristics Non-Labored Spontaneous Respiratory Depth Normal Respiratory Pattern Regular Blood Pressure Blood Pressure [Right Arm] Blood Pressure Mean Blood Pressure Mean [Right Arm] Blood Pressure Position Pulse Oximetry Oxygen Delivery Method Room Air 10/01/18 17:14 10/01/18 17:54 Temperature 36.8 C Temperature Source Oral Sepsis Recent Fever Within 48 Hours Sepsis New/Unexplained Change in Mental Status Sepsis Action Taken by Nursing Pulse Rate 58 L 53 L Pulse Rate [Finger] 59 L Pulse Rhythm [Finger] Regular Pulse Strength [Finger] Normal Respiratory Rate 21 19 Respiratory Effort / Characteristics Non-Labored Respiratory Depth Normal Respiratory Pattern Blood Pressure Blood Pressure [Right Arm] 147/79 H Blood Pressure Mean Blood Pressure Mean [Right Arm] 101 Blood Pressure Position Pulse Oximetry 97 Oxygen Delivery Method Room Air Room Air Home Medications Current Medication List: was personally reviewed by me Laboratory Data Attestation: I reviewed the patient's lab results. Result diagrams: 10/01/18 10:50 10/01/18 10:50 Lab Results 10/01/18 10/01/18 10/01/18 Range/Units 10:50 10:50 10:50 WBC 9.09 (4.8-10.8) K/uL RBC 4.45 (4.2-5.4) M/uL Hgb 13.6 (12.0-16.0) g/dL Hct 42.0 (37-47) % MCV 94.4 (80-100) fL MCH 30.6 (25-34) pg MCHC 32.4 (32-36) g/dL RDW Std Deviation 43.7 (36.4-46.3) fL RDW Coeff of Sandor 12.7 (11.5-14.5) % Plt Count 225 (130-400) K/uL MPV 10.9 H (7.4-10.4) fL Immature Gran % (Auto) 0.1 % Neut % (Auto) 46.7 % Lymph % (Auto) 39.7 % [place] % (Auto) 10.0 % Eos % (Auto) 2.8 % Baso % (Auto) 0.7 % Immature Gran # (Auto) 0.01 (0.00-0.02) K/uL Neut # (Auto) 4.25 (1.4-6.5) K/uL Lymph # (Auto) 3.61 H (1.2-3.4) K/uL [place] # (Auto) 0.91 H (0.11-0.59) K/uL Eos # (Auto) 0.25 (0-0.5) K/uL Baso # (Auto) 0.06 (0-0.2) K/uL PT 10.4 (9.0-12.0) Seconds INR 1.0 (0.9-1.1) APTT 25.4 (21.0-31.0) Seconds PTT Ratio 1.0 Sodium 140 (136-145) mmol/L Potassium 4.1 (3.5-5.1) mmol/L Chloride 104 (98-107) mmol/L Carbon Dioxide 31 (21-32) mmol/L Anion Gap 5.0 (3-11) BUN 21 H (7-18) mg/dl Creatinine 1.02 (0.6-1.2) mg/dl Est Cr Clr Drug Dosing 57.8 ml/min Est GFR ( Amer) 64.5 Est GFR (Non-Af Amer) 55.7 BUN/Creatinine Ratio 20.9 H (10-20) Glucose 83 (70-99) mg/dl Calcium 8.6 (8.5-10.1) mg/dl Total Bilirubin 1.2 H (0.2-1) mg/dl AST 22 (15-37) U/L ALT 31 (12-78) U/L Alkaline Phosphatase 81 (45-117) U/L Troponin I < 0.015 (0-0.045) ng/ml Total Protein 7.2 (6.4-8.2) gm/dl Albumin 3.6 (3.4-5.0) gm/dl Globulin 3.6 (2.5-4.0) gm/dl Albumin/Globulin Ratio 1.0 (0.9-2) 10/01/18 Range/Units 17:51 WBC (4.8-10.8) K/uL RBC (4.2-5.4) M/uL Hgb (12.0-16.0) g/dL Hct (37-47) % MCV (80-100) fL MCH (25-34) pg MCHC (32-36) g/dL RDW Std Deviation (36.4-46.3) fL RDW Coeff of Sandor (11.5-14.5) % Plt Count (130-400) K/uL MPV (7.4-10.4) fL Immature Gran % (Auto) % Neut % (Auto) % Lymph % (Auto) % [place] % (Auto) % Eos % (Auto) % Baso % (Auto) % Immature Gran # (Auto) (0.00-0.02) K/uL Neut # (Auto) (1.4-6.5) K/uL Lymph # (Auto) (1.2-3.4) K/uL [place] # (Auto) (0.11-0.59) K/uL Eos # (Auto) (0-0.5) K/uL Baso # (Auto) (0-0.2) K/uL PT (9.0-12.0) Seconds INR (0.9-1.1) APTT (21.0-31.0) Seconds PTT Ratio Sodium (136-145) mmol/L Potassium (3.5-5.1) mmol/L Chloride (98-107) mmol/L Carbon Dioxide (21-32) mmol/L Anion Gap (3-11) BUN (7-18) mg/dl Creatinine (0.6-1.2) mg/dl Est Cr Clr Drug Dosing ml/min Est GFR ( Amer) Est GFR (Non-Af Amer) BUN/Creatinine Ratio (10-20) Glucose (70-99) mg/dl Calcium (8.5-10.1) mg/dl Total Bilirubin (0.2-1) mg/dl AST (15-37) U/L ALT (12-78) U/L Alkaline Phosphatase (45-117) U/L Troponin I < 0.015 (0-0.045) ng/ml Total Protein (6.4-8.2) gm/dl Albumin (3.4-5.0) gm/dl Globulin (2.5-4.0) gm/dl Albumin/Globulin Ratio (0.9-2) Administered Medications Aspirin (Ecotrin) 162 mg PO HS AARTI Stop: 10/31/18 16:34 Last Admin: 10/01/18 18:33 Dose: 162 mg Imaging Data Attestation: I personally reviewed and interpreted this imaging study as follows : Radiologist's Impression: XR chest 1V portable CLINICAL HISTORY: 68 years-old Female presenting with CP. TECHNIQUE: Portable upright AP view of the chest was obtained. COMPARISON: Chest x-ray from 04/09/[address] from 03/03/2018. FINDINGS: Median sternotomy wires and mediastinal surgical clips. Atherosclerosis of the aortic arch. Cardiac silhouette normal in size. No focal opacity. The previously noted groundglass nodules on CT are not apparent by radiograph. No large effusion or pneumothorax. Osseous structures normal. Upper abdomen normal. IMPRESSION: 1. No acute cardiopulmonary disease. Electronically signed by: Babatunde Loya M.D. 10/01/2018 11:23 AM ECG Data Attestation: I personally reviewed and interpreted this ECG as follows: Indication: chest pain Rate (beats per minute): 56 Rhythm: sinus bradycardia Findings: + Q waves (Septal); no PAC, no PVC, no ST depression and no ST elevation Blood Pressure Blood Pressure Findings: Elevated blood pressure Blood Pressure Disposition: further management by hospitalist Discharge Plan Visit Data *Final* Discharge Date/Time: 10/01/18 17:14 Chief Complaint: Chest Pain Stated Complaint: sent from dr putnam, chest pain ED Provider: Gerson Rush Discharge Problem: Left sided chest pain Patient Disposition: Admitted As Inpatient Discharge Instructions Interventions: ED Discharge Assessment Last Done: 10/01/18 17:14 The scribe's documentation has been prepared under my direction and personally reviewed by me in its entirety. I confirm that the note above accurately reflects all work, treatment, procedures, and medical decision making performed by me.
[2018-10-01] MEDS ORDERED: ATORVASTATIN 20 MG TAB PO SCH (21:00)
[2018-10-01] MEDS: HEPARIN SOD 5,000 UNIT/0.5 ML VIAL SQ SCH (21:15)
[2018-10-02 05:56] LABS: Hematocrit (blood only) 41.4 % (37-47); Hemoglobin 13.8 g/dL (12.0-16.0); Mean Corpuscular Hgb Conc 33.3 g/dL (32-36); Mean Corpuscular Volume 92.4 fL (80-100); Mean Platelet Volume 10.5 fL (7.4-10.4); Platelet Count 200 K/uL (130-400); RDW Coefficient of Variation 12.5 % (11.5-14.5); RDW Standard Deviation 42.8 fL (36.4-46.3); Red Blood Count 4.48 M/uL (4.2-5.4)
[2018-10-02] MEDS: HEPARIN SOD 5,000 UNIT/0.5 ML VIAL SQ SCH (06:20)
[2018-10-02 06:28] LABS: Estimated Average Glucose 108 mg/dl
[2018-10-02 06:30] LABS: BUN Creatinine Ratio 24.2 (10-20); Calcium 8.7 mg/dl (8.5-10.1); Creatinine Clr Calc Pharmacy 69.3 ml/min; Est GFR (African American) 81.6; Est GFR (Non-African American) 70.4; Magnesium 2.4 mg/dl (1.8-2.4); Potassium 3.8 mmol/L (3.5-5.1)
[2018-10-02] MEDS ORDERED: CALCIUM 600MG + VIT D 400 IU TAB PO SCH (09:00)
[2018-10-02] MEDS ORDERED: CITALOPRAM 20 MG TAB PO SCH (09:00)
[2018-10-02] MEDS ORDERED: predniSONE 5 MG TAB PO SCH (09:00)
[2018-10-02] MEDS ORDERED: PANTOprazole 40 MG TAB PO SCH ×2 (09:00→21:00)
[2018-10-02] MEDS ORDERED: AMLODIPINE BESYLATE 5 MG TAB PO SCH (09:00)
--- NOTE | 2018-10-02 09:51 | Consultation Report ---
DATE OF CONSULTATION: 10/02/2018 INPATIENT CARDIOLOGY CONSULTATION CONSULTATION REQUESTED BY: Cisco Emanuel PA-C. REASON FOR CONSULTATION: Chest pain. HISTORY OF PRESENT ILLNESS: Ms. Grimm is a pleasant 68-year-old woman normally follows with Dr. Solares of our cardiology practice. She presented to [facility] on the evening of 10/01/2018 with complaints of chest pain. The patient states that the pain started approximately 3 days prior to presentation and that she woke up with it 1 day. She describes it as a burning sensation in the center of her chest that seemed to wax and wane, but never completely resolved over a 3-day period. She denied any associated complaints. Specifically, denied any associated shortness of breath, diaphoresis, palpitations, lightheadedness, dizziness, or syncope. She states that when the waves would get worse, she might get a little nauseous with it, but she never vomited. After several days, she contacted her primary care physician, Dr. Carreon's office since she was recommended to come into the Emergency Department. Upon arrival, her workup was unremarkable and she was admitted to telemetry and her discomfort persisted despite unremarkable EKG and cardiac enzymes. Upon further questioning, the patient states that she has been taking her prednisone daily with occasional ibuprofen as well, but is not taking her Protonix in some time. PAST SURGICAL HISTORY: 1. 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 2. Craniotomy secondary to aneurysm resection. 3. Colonoscopy. 4. Cystoscopy. 5. Cataracts. 6. Tubal ligation. 7. Lumpectomy. MEDICAL ILLNESSES: 1. Minimal thoracic ascending aortic aneurysm. 2. Polymyalgia rheumatica, on chronic steroids. 3. Atrial myxoma, status post resection. 4. Hypertension. 5. Postoperative atrial fibrillation. 6. Pulmonary nodule, stable. 7. History of lacunar infarct. 8. History of cerebral aneurysm, status post repair. FAMILY HISTORY: Noncontributory. SOCIAL HISTORY: The patient is a former smoker, quit in 2007. Denies any alcohol or recreational drug use. 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 REVIEW OF SYSTEMS: As per HPI, all other review of systems reviewed and negative at this time. ALLERGIES: 1. BACLOFEN. 2. LISINOPRIL. MEDICATIONS AN OUTPATIENT: 1. Aspirin 81 mg daily. 2. Atorvastatin 20 mg daily. 3. Amlodipine 5 mg daily. 4. Prilosec daily. 5. Celexa daily. 6. Prednisone 5 mg daily. PHYSICAL EXAMINATION: VITAL SIGNS: Temperature 36.5, pulse 51, respiratory rate 12, blood pressure 149/63. GENERAL: Awake, alert, oriented x3 in no acute distress. HEENT: Normocephalic, atraumatic. Pupils equal, round, react to light and accommodation. Extraocular muscles intact. Anicteric sclerae. Moist mucous membranes. NECK: No JVD, no bruit. CARDIOVASCULAR: Regular. Positive S4. Normal S1 and S2. No S3. No murmurs or rubs. PULMONARY: Clear to auscultation bilaterally. No rales, rhonchi, or wheezing. ABDOMEN: Bowel sounds x4, soft. No rebound, guarding, or tenderness. No organomegaly. EXTREMITIES: No clubbing, cyanosis or edema. +2 pedal pulses bilaterally. SKIN: Warm and dry. TEST RESULTS: Exercise stress echocardiogram was nondiagnostic at 64% max target heart rate, but nonischemic at heart rate level achieved. A 12-lead EKG performed in the Emergency Department independently reviewed at this time shows sinus bradycardia at 56 beats per minute, normal axis, normal intervals, otherwise normal study. Troponin negative x3. IMPRESSION: 1. Chest pain, secondary to gastroesophageal reflux disease. 2. Nondiagnostic exercise stress echocardiogram. 3. Status post myxoma resection. 4. Status post fibroelastoma resection. 5. Polymyalgia, on chronic steroids. 6. History of gastroesophageal reflux disease, currently not compliant with H2 armando. RECOMMENDATIONS: It was my pleasure to see Mrs. Grimm in consultation today. While her stress test was nondiagnostic due to her failure to achieve target heart rate given her history along with unremarkable EKG and cardiac enzymes, I am comfortable calling this chest pain secondary to acid reflux. So at this point, I have increased her Protonix to b.i.d. and counseled her on the need of use given her ongoing steroid use. Otherwise, no other medication changes will be made. My office will arrange for outpatient Lexiscan nuclear stress test to complete the workup and follow up with Dr. Solares. Otherwise, it is okay to discharge the patient to home from a cardiac standpoint.
--- NOTE | 2018-10-02 13:02 | Hospitalist Progress Note ---
Date of Service October 02, 2018 Assessment & Plan (1) Chest pain: This is a 68-year-old female with a PMH of HTN, HLD, PMR, depression, h/o excision of left atrial myxoma and aortic valve fibroelastoma in May 2012, h/o L craniotomy following MCA aneurysm in Sep 2012 and mild ectasia of ascending aorta (max of 3.7 cm) who presents with intermittent chest pain x 3 days. -Left sided burning CP with radiation to axilla, associated with nausea and SOB -Troponin negative x3, EKG- without acute ST changes -CXR-no acute cardiopulmonary findings -Evaluated by cardiology today with exercise stress echo today * Nondiagnostic exercise stress echocardiogram due to inability to achieve target heart rate. Normal LV systolic function, EF 60-65%, grade 1 diastolic dysfunction, mild MR * [place] that chest pain is secondary to gastroesophageal reflux disease in the setting of daily prednisone use and recent non-compliance with protoonix * Increased her Protonix to BID * Plan for outpatient Lexiscan nuclear stress test to complete the workup * Follow up with Dr. Solares in cardio clinic (2) 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 Solares in clinic (3) HTN (hypertension): Normotensive -Continue home amlodipine (4) PMR (polymyalgia rheumatica): Stable. [place] [facility] [place]Continue prednisone (5) Ascending aorta dilation: Mild dilatation of the proximal ascending aorta was noted with max of 3.7 cm on February 2018 CT chest -Stable compared to prior CT scan (6) Depression: Continue Celexa DVT Ppx: SQ heparin Code status: FULL per discussion with patient PCP: Velma Dispo: Telemetry observation. Plan to discharge this afternoon. Patient seen in collaboration with Dr. Veronica. Please see addendum. Supervising Physician Co-Signing Physician Notes Pt was see and examined . Lying in bed with no distress. Pt is very anxious to go home. She said that she feels fine Denies any chest pain, palpitation and SOB Exam General- No acute distress Head- atraumatic Eyes- PERRL, EOMI, ENT- oropharynx clear Neck- supple, no JVD Lungs- clear to auscultation Heart- regular rhythm Abdomen- normal bowel sounds, soft, nontender Extremities- no calf tenderness Neuro- alert, oriented x 3; PERRL, EOMI; no facial palsy; no dysarthria Skin- warm & dry A/P Chest pain Possible related to GERD Troponinx 3 set negative EKG showed no ischemic changes Cardio on board Stress test done today showed nondiagnostic due to her failure to achieve target heart rate. Plan to have outpatient Lexiscan nuclear stress test Will discharge on protonix 40mg BID Ok from cardiac standpoint to discharge home Advided pt if chest pain reoccurs o seek medical attention CODE STATUS FULL CODE Disposition Will discharge home today Physical Exam 2 Vital Signs (Past 24 Hours): Last Vital Signs Temp 36.5 C 10/02/18 12:55 Pulse 52 L 10/02/18 12:55 Resp 16 10/02/18 12:55 BP 137/74 10/02/18 12:55 Pulse Ox 98 10/02/18 12:55
--- NOTE | 2018-10-06 09:28 | Discharge Summary ---
Date of Service October 06, 2018 Admission HPI Per Admitting Provider This is a 68-year-old female with a PMH of HTN, HLD, PMR, depression, h/o excision of left atrial myxoma and aortic valve fibroelastoma in May 2012, h/o L craniotomy following MCA aneurysm in Sep 2012 and mild ectasia of ascending aorta with max of 3.7 cm who presents with intermittent chest pain x 3 days. Patient was awakened with pain 3 nights ago on her left chest wall that she describes as burning and sharp with radiation to left axilla. Denies any radiation to jaw or arms. Associated with nausea and shortness of breath but denies diaphoresis or vomiting. Episodes of pain last for a few minutes at a time. Tried taking Tums without any relief but states that pain feels like acid reflux. Denies any history of CAD or NV. Follows with Dr. Solares and cardiology clinic for history of left atrial [place] [facility] [place]. Denies any chest pain currently. No fever, chills, lightheadedness, headache, palpitations, shortness of breath, abdominal pain, nausea, vomiting. Endorses dysuria and chronic constipation. Had a pre-surgical cardiac catheterization in May 2012 with normal coronary arteries. Does have mild coronary artery calcification noted on CT chest. Echo performed in June 2018 with normal left ventricular wall motion , EF of 55-59%, mild aortic valve sclerosis and unchanged mild mitral regurgitation and mild tricuspid regurgitation. Admission Exam Per Admitting Provider General Appearance: WD/WN, no apparent distress, resting comfortably Head: normocephalic, atraumatic Eyes: normal inspection, PERRL, EOMI ENT: hearing grossly normal, pharynx normal (moist mucous membranes) Neck: supple, no JVD, no adenopathy Respiratory/Chest: No chest wall tenderness. Lungs clear to auscultation. No wheezes, rales or rhonci. No respiratory distress or accessory muscle use Cardiovascular: regular rate, rhythm, systolic murmur, normal peripheral pulses , no peripheral edema Abdomen/GI: normal bowel sounds, soft, non-tender to palpation Extremities/Musculoskelatal: normal inspection, no calf tenderness, normal capillary refill Neurologic/Psych: alert, normal mood/affect, oriented x 3 Skin: normal color, warm/dry Principal Diagnosis CHEST PAIN Discharge Exam General- No acute distress Head- atraumatic Eyes- PERRL, EOMI, ENT- oropharynx clear Neck- supple, no JVD Lungs- clear to auscultation Heart- regular rhythm Abdomen- normal bowel sounds, soft, nontender Extremities- no calf tenderness Neuro- alert, oriented x 3; PERRL, EOMI; no facial palsy; no dysarthria Skin- warm & dry Discharge Data Allergies Allergy/AdvReac Type Severity Reaction Status Date / Time lisinopril AdvReac Intermediate COUGH Verified 10/01/18 12:25 baclofen AdvReac Mild N/V Verified 10/01/18 12:25 Consultations 10/01/18 16:04 ED Decision to Admit Stat 10/01/18 17:52 Consult Cardiology Routine Ordered Studies XR chest 1V portable CLINICAL HISTORY: 68 years-old Female presenting with CP. TECHNIQUE: Portable upright AP view of the chest was obtained. COMPARISON: Chest x-ray from 04/09/[address] from 03/03/2018. FINDINGS: Median sternotomy wires and mediastinal surgical clips. Atherosclerosis of the aortic arch. Cardiac silhouette normal in size. No focal opacity. The previously noted groundglass nodules on CT are not apparent by radiograph. No large effusion or pneumothorax. Osseous structures normal. Upper abdomen normal. IMPRESSION: 1. No acute cardiopulmonary disease. Electronically signed by: Babatunde Loya M.D. 10/01/2018 11:23 AM Dictated: 10/01/18 1121 Transcribed: 10/01/18 1121 Hospital Course (1) Chest pain: This is a 68-year-old female with a PMH of HTN, HLD, PMR, depression, h/o excision of left atrial myxoma and aortic valve fibroelastoma in May 2012, h/o L craniotomy following MCA aneurysm in Sep 2012 and mild ectasia of ascending aorta (max of 3.7 cm) who presents with intermittent chest pain x 3 days. -Left sided burning CP with radiation to axilla, associated with nausea and SOB -Troponin negative x3, EKG- without acute ST changes -CXR-no acute cardiopulmonary findings -Evaluated by cardiology today with exercise stress echo today * Nondiagnostic exercise stress echocardiogram due to inability to achieve target heart rate. Normal LV systolic function, EF 60-65%, grade 1 diastolic dysfunction, mild MR * [place] that chest pain is secondary to gastroesophageal reflux disease in the setting of daily prednisone use and recent non-compliance with protoonix * Increased her Protonix to BID * Plan for outpatient Lexiscan nuclear stress test to complete the workup * Follow up with Dr. Solares in cardio clinic (2) 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 Solares in clinic (3) HTN (hypertension): Normotensive -Continue home amlodipine (4) PMR (polymyalgia rheumatica): Stable. Follows with [facility] [place] -Continue prednisone (5) Ascending aorta dilation: Mild dilatation of the proximal ascending aorta was noted with max of 3.7 cm on February 2018 CT chest -Stable compared to prior CT scan (6) Depression: Continue Celexa DVT Ppx: SQ heparin Code status: FULL per discussion with patient PCP: Velma Dispo: Telemetry observation. Plan to discharge this afternoon. Patient seen in collaboration with Dr. Veronica. Please see addendum. Total Time Total Time Spent Total Time Spent (In Minutes): 35 minutes Total Time Includes: Examination of the Patient, Discharge Planning, Medication Reconciliation, Communication With Other Providers and Other Discharge Plan Discharge Items Patient Disposition: Home - Self-Care Reason For Visit: CHEST PAIN Discharge Diagnosis: Chest pain Discharge Goals: Decrease discomfort, Improve disease control and Increase independence Activity: Resume your previous activity Activity Comment: As tolerated Non-emergency contact: Primary Care Provider and [employer] Call non-emergency contact if: you have any medication questions and your pain is not controlled Diet: Heart Healthy Addtl Provider Instructions: Follow up with your primary care provider Dr. Carreon on 10/06 @ 12:45 PM Follow up with cardiology for stress test schedule for 10/09/18 @ 1:00PM Seek medical attention if your chest pain worsening or non stop Prescriptions: New pantoprazole 40 mg Tablet,Delayed Release (Dr/Ec) 40 mg PO BID 30 Days Qty: 60 RF: 0 Continue prednisone 5 mg tablet 5 mg PO QAM RF: 0 aspirin 81 mg Tablet,Delayed Release (Dr/Ec) 162 mg PO HS RF: 0 citalopram 20 mg tablet 20 mg PO QAM RF: 0 calcium carbonate-vitamin D3 [Caltrate 600 + D] 600 mg (1,500 mg)-800 unit Tablet,Chewable 1 tab PO QAM RF: 0 atorvastatin 20 mg Tablet 20 mg PO PM RF: 0 ibuprofen 200 mg Capsule 200 mg PO QID PRN (Reason: Pain) RF: 0 amlodipine 5 mg Tablet 5 mg PO DAILY RF: 0 Discontinued omeprazole 20 mg capsule,delayed release(DR/EC) 20 mg PO QAM RF: 0 Stand-Alone Forms: [facility] Discharge Orders: Discharge Order (Routine); Ordered 10/02/18 Ordered By: Bridget Vernoica Admission Data Admit Date/Time: 10/01/18 16:34 Attending Provider: Bridget Veronica Admit Provider: Bridget Veronica Primary Care Provider: Francisco Carreon Other Providers: Bridget Veronica ; Remy Barkley Service: Telemetry Other Interventions: Discharge Summary Assessment (RN) Last Done: 10/02/18 12:55 DC Date/Time DO NOT enter until pt leaves facility: 10/02/18 13:32
== END 2018-10-02 13:32 | disposition home or self-care (01) ==
LOC: 2S 10:32 → ED 10:32 → 2S 17:14

== ENCOUNTER 2018-10-21 00:27 | Observation (INO) ==
[2018-10-21] MEDS ORDERED: ONDANSETRON INJ 2 MG/ML 2 ML VIAL IV STA (00:50)
[2018-10-21] MEDS ORDERED: DICYCLOMINE HCL 10 MG/ML 2 ML AMP/VIAL IM ONE (00:50)
[2018-10-21] MEDS ORDERED: SODIUM CHLORIDE 0.9% 500 ML IV SCH (01:00)
--- NOTE | 2018-10-21 01:03 | Emergency Department Note ---
History of Present Illness General Chief complaint: Abdominal Pain Stated complaint: CHILLS,DIARRHEA,ABDOMINAL PAIN History of Present Illness Maximum Pain Intensity: 10 This 68-year-old presents to the ER complaining of nausea vomiting diarrhea cough fatigue Location: Generalized Quality: Crampy Severity: Moderate Duration: Today Timing: Vomiting and diarrhea started today Context: Symptoms got worse and patient came in Modifying factors: better with nothing; worse with drinking Patient states she has had a cough for the past week. She feels sick. No bad food exposure. No recent antibiotics. Patient denies chest pain, dyspnea, sore throat, back pain, urinary symptoms. She cannot keep fluids down. No history of CHF. Home Medications Home Medications Medication Instructions Recorded Confirmed Type amlodipine 5 mg PO DAILY 10/01/18 10/21/18 History aspirin 162 mg PO HS 10/01/18 10/21/18 History atorvastatin 20 mg PO PM 10/01/18 10/21/18 History calcium carbonate-vitamin D3 1 tab PO QAM 10/01/18 10/21/18 History [Caltrate 600 + D] citalopram 20 mg PO QAM 10/01/18 10/21/18 History ibuprofen 200 mg PO QID PRN 10/01/18 10/21/18 History prednisone 5 mg PO QAM 10/01/18 10/21/18 History pantoprazole 40 mg PO BID 30 Days #60 tab 10/02/18 10/21/18 Rx Allergies Allergy/AdvReac Type Severity Reaction Status Date / Time lisinopril AdvReac Intermediate COUGH Verified 10/21/18 02:50 baclofen AdvReac Mild N/V Verified 10/21/18 02:50 Past Med/Surg History Medical History Ascending aorta dilation (Chronic) Mild dilatation of the proximal ascending aorta was noted with max of 3.7 cm on February 2018 CT chest, stable compared to prior CT scan. 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 [facility] [place] in May 2012 Surgical History S/P craniotomy (Resolved) H/O aortic valve repair (Resolved) History of cataract surgery (Chronic) History of tubal ligation (Chronic) H/O atrial septal defect repair (Resolved) Family History Mother HTN (hypertension) Breast cancer Colon cancer Father HTN (hypertension) Social History Current Living Situation: Spouse Feels Safe at Home: Yes Smoking Status: Never smoker Hx Alcohol Use: No Hx Substance Use: No Beliefs That Will Affect Care: None Preferred Language: Danish Review of Systems All systems reviewed & are unremarkable except as noted in HPI & below Physical Exam Vital Signs Vital Signs - 24 hr 10/21/18 00:38 10/21/18 00:50 10/21/18 02:15 Temperature 36.7 C Temperature Source Oral Sepsis Recent Fever Within 48 Hours No Sepsis Action Taken by Nursing No Action Required Pulse Rate 97 H 85 Pulse Rate [Apical] 81 Pulse Rhythm Regular Pulse Rhythm [Apical] Regular Pulse Strength [Apical] Normal Respiratory Rate 24 17 17 Respiratory Effort / Characteristics Non-Labored Spontaneous Non-Labored Spontaneous Respiratory Depth Normal Normal Respiratory Pattern Regular Blood Pressure 158/81 H Blood Pressure [Right Arm] 150/73 H Blood Pressure Mean 106 Blood Pressure Mean [Right Arm] 98 Blood Pressure Position Sitting Blood Pressure Position [Right Arm] Lying Pulse Oximetry 98 98 88 L Oxygen Delivery Method Room Air Room Air Room Air Oxygen Flow Rate 10/21/18 02:21 Temperature Temperature Source Sepsis Recent Fever Within 48 Hours Sepsis Action Taken by Nursing Pulse Rate Pulse Rate [Apical] Pulse Rhythm Pulse Rhythm [Apical] Pulse Strength [Apical] Respiratory Rate Respiratory Effort / Characteristics Respiratory Depth Respiratory Pattern Blood Pressure Blood Pressure [Right Arm] Blood Pressure Mean Blood Pressure Mean [Right Arm] Blood Pressure Position Blood Pressure Position [Right Arm] Pulse Oximetry 98 Oxygen Delivery Method Nasal Cannula Oxygen Flow Rate 2 VITALS: Vitals are noted on the nurse's note and reviewed by myself. Vital signs stable. GENERAL: Pleasant female dry heaving, in no acute distress, nondiaphoretic, well -developed well-nourished. SKIN: The skin was without rashes, erythema, edema, or bruising. There is no tenting of the skin. Capillary reflex less than 2 seconds. HEAD: Normocephalic atraumatic. EARS: External auditory canals clear, tympanic membranes pearly blanton without erythema or effusion bilaterally. EYES: Pupils equal round and reactive to light and accommodation. Conjunctivae without injection, sclerae without icterus. Extraocular movements intact. NOSE: Patent, turbinates without inflammation or discharge. MOUTH: Mucous membranes moist. Pharynx without erythema or exudate. Uvula midline. Airway patent. Tongue does not deviate. NECK: Supple without nuchal rigidity. No lymphadenopathy. No thyromegaly. Cervical spine is nontender. No JVD. HEART: Regular rate and rhythm LUNGS: Clear to auscultation bilaterally without wheezes, rales or rhonchi. No retractions or accessory muscle use. ABDOMEN: Positive bowel sounds x 4. Normal tympanic percussion. Soft, diffusely tender without localized pain, without masses or organomegaly. Durand sign negative. No guarding or rebound tenderness. No CVA tenderness MUSCULOSKELETAL: No muscle atrophy, erythema, or edema noted. NEURO: Patient was alert and oriented to person place and time. Normal sensation to light and sharp touch. No focal neurological deficits. Course Administered Medications Ioversol (Optiray 320 100ml) 100 ml IV ONCE PRN PRN Reason: Interaction Checking Stop: 10/25/18 01:49 Last Admin: 10/21/18 01:51 Dose: 92 ml Discontinued Medications Dicyclomine HCl (Bentyl) 20 mg IM NOW ONE Stop: 10/21/18 00:51 Last Admin: 10/21/18 01:01 Dose: 20 mg Diphenhydramine HCl (Benadryl) 25 mg IV NOW STA Stop: 10/21/18 01:53 Last Admin: 10/21/18 01:56 Dose: 25 mg Sodium Chloride (Nss) 500 mls @ 999 mls/hr IV .Q31M AARTI Stop: 10/21/18 01:30 Last Infusion: 10/21/18 02:06 Dose: 0 mls/hr Admin: 10/21/18 01:02 Dose: 999 mls/hr Magnesium Sulfate/Dextrose (Magnesium Sulfate / D5w) 1 gm in 100 mls @ 100 mls/ hr IV ONE ONE Stop: 10/21/18 02:24 Last Admin: 10/21/18 01:54 Dose: 100 mls/hr Sodium Chloride (Nss 1000ml) 500 mls @ 999 mls/hr IV .Q31M ONE Stop: 10/21/18 01:55 Last Admin: 10/21/18 01:55 Dose: 999 mls/hr Metoclopramide HCl (Reglan) 10 mg IV NOW STA Stop: 10/21/18 01:53 Last Admin: 10/21/18 01:56 Dose: 10 mg Ondansetron HCl (Zofran) 4 mg IV NOW STA Stop: 10/21/18 00:51 Last Admin: 10/21/18 01:01 Dose: 4 mg Medical Decision Making Medical Records Attestation: I reviewed the patient's medical records. Home Medications Current Medication List: was personally reviewed by me Laboratory Data Attestation: I reviewed the patient's lab results. Result diagrams: 10/21/18 00:54 10/21/18 00:54 Lab Results 10/21/18 10/21/18 10/21/18 Range/Units 00:54 00:54 01:08 WBC 17.04 H (4.8-10.8) K/uL RBC 4.87 (4.2-5.4) M/uL Hgb 15.0 (12.0-16.0) g/dL Hct 44.9 (37-47) % MCV 92.2 (80-100) fL MCH 30.8 (25-34) pg MCHC 33.4 (32-36) g/dL RDW Std Deviation 42.1 (36.4-46.3) fL RDW Coeff of Sandor 12.5 (11.5-14.5) % Plt Count 245 (130-400) K/uL MPV 10.5 H (7.4-10.4) fL Immature Gran % (Auto) 0.2 % Neut % (Auto) 86.8 % Lymph % (Auto) 5.5 % Bertie % (Auto) 6.8 % Eos % (Auto) 0.6 % Baso % (Auto) 0.1 % Immature Gran # (Auto) 0.04 H (0.00-0.02) K/uL Neut # (Auto) 14.78 H (1.4-6.5) K/uL Lymph # (Auto) 0.94 L (1.2-3.4) K/uL Bertie # (Auto) 1.16 H (0.11-0.59) K/uL Eos # (Auto) 0.10 (0-0.5) K/uL Baso # (Auto) 0.02 (0-0.2) K/uL Sodium 138 (136-145) mmol/L Potassium 3.8 (3.5-5.1) mmol/L Chloride 105 (98-107) mmol/L Carbon Dioxide 26 (21-32) mmol/L Anion Gap 7.0 (3-11) BUN 26 H (7-18) mg/dl Creatinine 1.23 H (0.6-1.2) mg/dl Est Cr Clr Drug Dosing Not Reportable Est GFR ( Amer) 51.5 Est GFR (Non-Af Amer) 44.4 BUN/Creatinine Ratio 21.3 H (10-20) Glucose 134 H (70-99) mg/dl Calcium 8.8 (8.5-10.1) mg/dl Magnesium 1.6 L (1.8-2.4) mg/dl Total Bilirubin 1.1 H (0.2-1) mg/dl AST 25 (15-37) U/L ALT 30 (12-78) U/L Alkaline Phosphatase 87 (45-117) U/L Troponin I < 0.015 (0-0.045) ng/ml Total Protein 7.9 (6.4-8.2) gm/dl Albumin 3.8 (3.4-5.0) gm/dl Globulin 4.1 H (2.5-4.0) gm/dl Albumin/Globulin Ratio 0.9 (0.9-2) Lipase 83 (73-393) U/L Urine Color Urine Appearance (Clear) Urine pH (4.5-7.5) Ur Specific [place] (1.000-1.030) Urine Protein (Negative) Urine Glucose (UA) (Negative) Urine Ketones (Negative) Urine Blood (Negative) Urine Nitrite (Negative) Urine Bilirubin (Negative) Urine Urobilinogen (Negative) Ur Leukocyte Esterase (Negative) Urine WBC (Auto) (0-5) /hpf Urine RBC (Auto) (0-4) /hpf U Hyaline Cast (Auto) (0-5) /lpf U Epithel Cells (Auto) (0-5) /lpf Urine Bacteria (Auto) (Negative) Influenza Type A (PCR) Neg for Influ A (Neg) Influenza Type B (PCR) Neg for Influ B (Neg) 10/21/18 Range/Units 02:13 WBC (4.8-10.8) K/uL RBC (4.2-5.4) M/uL Hgb (12.0-16.0) g/dL Hct (37-47) % MCV (80-100) fL MCH (25-34) pg MCHC (32-36) g/dL RDW Std Deviation (36.4-46.3) fL RDW Coeff of Sandor (11.5-14.5) % Plt Count (130-400) K/uL MPV (7.4-10.4) fL Immature Gran % (Auto) % Neut % (Auto) % Lymph % (Auto) % Bertie % (Auto) % Eos % (Auto) % Baso % (Auto) % Immature Gran # (Auto) (0.00-0.02) K/uL Neut # (Auto) (1.4-6.5) K/uL Lymph # (Auto) (1.2-3.4) K/uL Bertie # (Auto) (0.11-0.59) K/uL Eos # (Auto) (0-0.5) K/uL Baso # (Auto) (0-0.2) K/uL Sodium (136-145) mmol/L Potassium (3.5-5.1) mmol/L Chloride (98-107) mmol/L Carbon Dioxide (21-32) mmol/L Anion Gap (3-11) BUN (7-18) mg/dl Creatinine (0.6-1.2) mg/dl Est Cr Clr Drug Dosing Est GFR ( Amer) Est GFR (Non-Af Amer) BUN/Creatinine Ratio (10-20) Glucose (70-99) mg/dl Calcium (8.5-10.1) mg/dl Magnesium (1.8-2.4) mg/dl Total Bilirubin (0.2-1) mg/dl AST (15-37) U/L ALT (12-78) U/L Alkaline Phosphatase (45-117) U/L Troponin I (0-0.045) ng/ml Total Protein (6.4-8.2) gm/dl Albumin (3.4-5.0) gm/dl Globulin (2.5-4.0) gm/dl Albumin/Globulin Ratio (0.9-2) Lipase (73-393) U/L Urine Color Yellow Urine Appearance Clear (Clear) Urine pH 7.5 (4.5-7.5) Ur Specific [place] 1.016 (1.000-1.030) Urine Protein Negative (Negative) Urine Glucose (UA) Negative (Negative) Urine Ketones Negative (Negative) Urine Blood 2+ H (Negative) Urine Nitrite Negative (Negative) Urine Bilirubin Negative (Negative) Urine Urobilinogen Negative (Negative) Ur Leukocyte Esterase 1+ H (Negative) Urine WBC (Auto) 1-5 (0-5) /hpf Urine RBC (Auto) 10-30 H (0-4) /hpf U Hyaline Cast (Auto) 1-5 (0-5) /lpf U Epithel Cells (Auto) 10-20 H (0-5) /lpf Urine Bacteria (Auto) Negative (Negative) Influenza Type A (PCR) (Neg) Influenza Type B (PCR) (Neg) Imaging Data Attestation: I personally reviewed and interpreted this imaging study as follows : Blood Pressure Blood Pressure Findings: Normal blood pressure MDM Narrative Prior records/ancillary studies reviewed and summarized above. Nursing notes reviewed. Additional history obtained from family. The patient's history was concerning for nausea, vomiting, diarrhea, abdominal pain, cough. Differential diagnosis: Etiologies such as metabolic, infection, hypo/hyperglycemia, electrolyte abnormalities, cardiac sources, intracerebral event, toxicologic, neurologic, as well as others were entertained. Physical examination: As above. ER treatment provided: IV Lock IV fluids, Zofran, Bentyl IM On reassessment the patient felt better. Diagnostics interpretation by me: ECG: Normal sinus, normal intervals, no acute ST-T wave changes. Impression normal sinus rhythm interpreted by myself I think arrhythmia is unlikely. EKG shows normal sinus rhythm with no interval abnormalities such as QT prolongation or WPW. There are no findings to suggest Brugada syndrome. Cardiac monitoring in the emergency department reveals no tachycardic or bradycardic dysrhythmia. Hypertrophic cardiomyopathy was considered but there are no clear historical elements pointing toward this. EKG is not suggestive. The QRS voltage is not extremely large and there are no suggestive Q waves. The labs revealed leukocytosis. Stable H&H. Hypo-magnesium this is replaced Imaging studies: Chest x-ray with no acute consolidation, pneumothorax or free air per my interpretation ADDENDUM - Added by Bailey Burch MD on 10/21/2018 2:07 AM (-08:00) No other findings to explain patient's systems. CT ABDOMEN & PELVIS With Contrast: The appendix is not clearly identified. No secondary signs of appendicitis. The right colon is distended with fluid without wall thickening or surrounding inflammation. Mild to moderate stool is noted in the distal colon. Findings could indicate gastroenteritis. No bowel obstruction. No free air or free fluid. Severe degenerative disc disease at L4-L5 with anterolisthesis measuring 12 mm. Radiologist: Bailey Burch MD Consultation: A consultation was placed with the hospitalist, Dr. Diaz. The case was discussed and diagnostics were reviewed. The patient was evaluated in the ER for further treatment. Exam and history seem consistent with intractable vomiting with abdominal pain and diarrhea. Patient kept on Feeling like She Was Going to Vomit and Required Antinausea Medicine. She Did Not Feel Comfortable Going Home. Medicine Was Consulted. They Will Evaluate the Patient for Possible Admission. By the evaluation outlined above emergent etiologies such as cardiac sources, intracerebral event, toxologic, neurologic, abnormalities blood glucose, metabolic, as well as others were deemed relatively unlikely. The pt informed about the findings as listed above. All questions were answered and pleased with the treatment. Case reviewed with my attending The chart was completed utilizing [employer] Speech voice recognition software. Grammatical errors, random word insertions, pronoun errors, and incomplete sentences are an occassional consequence of this system due to software limitations, ambient noise, and hardware issues. Any formal questions or concerns about the content, text, or information contained within the body of this dictation should be directly addressed to the physician sales operations assistant for clarification. Impression & Plan Intractable nausea and vomiting, Abdominal pain, vomiting, and diarrhea, Hypomagnesemia Discharge Plan Visit Data Chief Complaint: Abdominal Pain Stated Complaint: CHILLS,DIARRHEA,ABDOMINAL PAIN ED Provider: Benny Rodriguez ED Midlevel Provider: Bre Hayes Discharge Problem: Intractable nausea and vomiting, Abdominal pain, vomiting, and diarrhea, Hypomagnesemia Patient Disposition: Being Evaluated by Hospitalist Condition: Good Forms Stand Alone Forms: My [facility], Call Back Authorization Prescriptions Prescriptions: No Action prednisone 5 mg tablet 5 mg PO QAM RF: 0 aspirin 81 mg Tablet,Delayed Release (Dr/Ec) 162 mg PO HS RF: 0 citalopram 20 mg tablet 20 mg PO QAM RF: 0 calcium carbonate-vitamin D3 [Caltrate 600 + D] 600 mg (1,500 mg)-800 unit Tablet,Chewable 1 tab PO QAM RF: 0 atorvastatin 20 mg Tablet 20 mg PO PM RF: 0 ibuprofen 200 mg Capsule 200 mg PO QID PRN (Reason: Pain) RF: 0 amlodipine 5 mg Tablet 5 mg PO DAILY RF: 0 pantoprazole 40 mg Tablet,Delayed Release (Dr/Ec) 40 mg PO BID 30 Days Qty: 60 RF: 0 Referrals Referrals: Francisco Carreon MD [Primary Care Provider] -
[2018-10-21 01:06] LABS: Basophils # (auto) 0.02 K/uL (0-0.2); Basophils % (auto) 0.1 %; Eosinophils % (auto) 0.6 %; Hematocrit (blood only) 44.9 % (37-47); Immature Granulocytes # (auto) 0.04 K/uL (0.00-0.02); Immature Granulocytes % (auto) 0.2 %; Lymphocytes # (auto) 0.94 K/uL (1.2-3.4); Lymphocytes % (auto) 5.5 %; Mean Corpuscular Hgb Conc 33.4 g/dL (32-36); Mean Corpuscular Volume 92.2 fL (80-100); Mean Platelet Volume 10.5 fL (7.4-10.4); Monocytes # (auto) 1.16 K/uL (0.11-0.59); Monocytes % (auto) 6.8 %; Neutrophils # (auto) 14.78 K/uL (1.4-6.5); Neutrophils % (auto) 86.8 %; Platelet Count 245 K/uL (130-400); RDW Coefficient of Variation 12.5 % (11.5-14.5); RDW Standard Deviation 42.1 fL (36.4-46.3); Red Blood Count 4.87 M/uL (4.2-5.4); White Blood Count 17.04 K/uL (4.8-10.8)
[2018-10-21 01:23] LABS: Alanine Aminotransferase 30 U/L (12-78); Albumin Level 3.8 gm/dl (3.4-5.0); Aspartate Aminotransferase 25 U/L (15-37); BUN Creatinine Ratio 21.3 (10-20); Blood Urea Nitrogen 26 mg/dl (7-18); Calcium 8.8 mg/dl (8.5-10.1); Carbon Dioxide 26 mmol/L (21-32); Chloride 105 mmol/L (98-107); Est GFR (African American) 51.5; Est GFR (Non-African American) 44.4; Glucose 134 mg/dl (70-99); Magnesium 1.6 mg/dl (1.8-2.4); Potassium 3.8 mmol/L (3.5-5.1); Sodium 138 mmol/L (136-145)
[2018-10-21] MEDS ORDERED: SODIUM CHLORIDE 0.9% 1000ML 500 ML IV ONE (01:25)
[2018-10-21] MEDS ORDERED: MAGNESIUM SULFATE / D5W 1 GM/100 ML BAG IV ONE (01:25)
[2018-10-21 01:29] LABS: Albumin Globulin Ratio 0.9 (0.9-2); Alkaline Phosphatase 87 U/L (45-117); Bilirubin,Total 1.1 mg/dl (0.2-1); Globulin 4.1 gm/dl (2.5-4.0); Total Protein 7.9 gm/dl (6.4-8.2); Troponin I < 0.015 ng/ml (0-0.045)
[2018-10-21] MEDS ORDERED: IOVERSOL 100ml IV PRN (01:50)
[2018-10-21] MEDS ORDERED: DiphenhydrAMINE HCL 50 MG/ML VIAL IV STA (01:52)
[2018-10-21] MEDS ORDERED: METOCLOPRAMIDE HCL INJ 5 MG/ML 2 ML VIAL IV STA (01:52)
[2018-10-21 01:57] LABS: Influenza A virus by PCR Neg for Influ A (Neg); Influenza B virus by PCR Neg for Influ B (Neg)
[2018-10-21 02:22] LABS: Appearance Urine Clear (Clear); Bacteria Urine Automated Negative (Negative); Bilirubin Urine Negative (Negative); Color Urine Yellow; Glucose Urine UA Negative (Negative); Ketones Urine Negative (Negative); Leukocyte Esterase Urine 1+ (Negative); Nitrite Urine Negative (Negative); Specific Gravity Urine 1.016 (1.000-1.030); Urobilinogen Urine Negative (Negative); pH Urine 7.5 (4.5-7.5)
[2018-10-21 02:27] LABS: Protein Urine Negative (Negative)
[2018-10-21] MEDS ORDERED: metroNIDAZOLE 500 MG/100 ML BAG IV STA (02:38)
[2018-10-21] MEDS ORDERED: PROCHLORPERAZINE 5 MG in SYRINGE 4 ML IV PRN (02:40)
[2018-10-21] MEDS ORDERED: NSS + 20MEQ KCL 20 MEQ/1,000 ML BAG IV SCH (02:45)
--- NOTE | 2018-10-21 03:23 | History & Physical Report ---
Date of Service October 21, 2018 Assessment & Plan (1) Abdominal pain, vomiting, and diarrhea: Acute gastroenteritis Rule out C. difficile given recent confinement No overt sepsis for now ARF secondary to diarrheal illness, clinical dehydration chronic diastolic heart failure (EF 65%), patient on the dry side Hypertension, stable PAF, NSR history of atrial myxoma status post surgery/AVR PVD as per records cerebral aneurysm status post surgery history CVA on CT scan PMR on chronic steroid therapy mood disorder, stable past tobacco abuse. OBS GMF Supportive measures for viral gastroenteritis. Stool C. difficile, IV Flagyl 1 dose for presumptive C. difficile given leukocytosis. Oral vancomycin course if stool C. difficile positive. Monitor creatinine response to IV fluids, hold home NSAIDs DVT prophylaxis. Heparin subcu Full code History of Present Illness Chief Complaint: Abdomen pain Primary Care Provider: Francisco Carreon MD History obtained from patient and records. Medical history significant for chronic diastolic heart failure (EF 65%) as per records, hypertension, PAF, history of atrial myxoma status post surgery/AVR, PVD, cerebral aneurysm status post surgery, history CVA on CT, PMR on chronic steroid therapy, mood disorder, past tobacco abuse. Recent confinement 2 weeks ago for chest pain attributed to GERD. Protonix increased to twice daily dosing. Outpatient Lexiscan nuclear stress test was normal. 2 days history of nausea, vomiting, achy lower abdominal pain symptoms, diarrhea , nonbloody, no fever, no chills. No recent antibiotics, could not keep anything down. Transient left-sided chest pain, no SOB. 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 Allergies Allergy/AdvReac Type Severity Reaction Status Date / Time lisinopril AdvReac Intermediate COUGH Verified 10/21/18 02:50 baclofen AdvReac Mild N/V Verified 10/21/18 02:50 Home Medications Home Medications Medication Instructions Recorded Confirmed Type amlodipine 5 mg PO DAILY 10/01/18 10/21/18 History aspirin 162 mg PO HS 10/01/18 10/21/18 History atorvastatin 20 mg PO PM 10/01/18 10/21/18 History calcium carbonate-vitamin D3 1 tab PO QAM 10/01/18 10/21/18 History [Caltrate 600 + D] citalopram 20 mg PO QAM 10/01/18 10/21/18 History ibuprofen 200 mg PO QID PRN 10/01/18 10/21/18 History prednisone 5 mg PO QAM 10/01/18 10/21/18 History pantoprazole 40 mg PO BID 30 Days #60 tab 10/02/18 10/21/18 Rx Past Med/Surg History Medical History Ascending aorta dilation (Chronic) Mild dilatation of the proximal ascending aorta was noted with max of 3.7 cm on [address] 2018 [address] chest, stable compared to prior CT scan. 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[facility] [place] in May 2012 Surgical History S/P craniotomy (Resolved) H/O aortic valve repair (Resolved) History of cataract surgery (Chronic) History of tubal ligation (Chronic) H/O atrial septal defect repair (Resolved) Family History Mother HTN (hypertension) Breast cancer Colon cancer Father HTN (hypertension) Social History Current Living Situation: Spouse Feels Safe at Home: Yes Safety Concerns: Feels Safe At This Time Smoking Status: Former smoker Hx Alcohol Use: No Hx Substance Use: No Beliefs That Will Affect Care: None Preferred Language: Frisian Communication Ability: Effective Human Projectile Required: No Review of Systems As per HPI, all 10 systems reviewed, all other ROS negative Physical Exam 2 Vital Signs (Past 24 Hours): Last Vital Signs Temp 36.7 C 10/21/18 00:38 Pulse 76 10/21/18 02:59 Resp 20 10/21/18 02:59 BP 126/70 10/21/18 02:59 Pulse Ox 98 10/21/18 02:59 Physical Exam: GENERAL: Slightly uncomfortable, wane, no respiratory distress SKIN: Normal color, warm HEENT: [place] palpebral conjunctivae, no ptosis, chronic lip symmetry, dry buccal mucosa NECK : Supple, no tenderness CHEST : CTA, no tenderness HEART : RRR, systolic murmur ABDOMEN: Some distention, minimal hypogastric tenderness EXTREMITIES : No LE swelling/tenderness, no other conspicuous deformities noted NEUROLOGIC : Coherent, chronic lip asymmetry , no other gross focality Results & Data Laboratory Results Laboratory Results WBC 17.04 K/uL (4.8-10.8) H 10/21/18 00:54 RBC 4.87 M/uL (4.2-5.4) 10/21/18 00:54 Hgb 15.0 g/dL (12.0-16.0) 10/21/18 00:54 Hct 44.9 % (37-47) 10/21/18 00:54 MCV 92.2 fL (80-100) 10/21/18 00:54 MCH 30.8 pg (25-34) 10/21/18 00:54 MCHC 33.4 g/dL (32-36) 10/21/18 00:54 RDW Std Deviation 42.1 fL (36.4-46.3) 10/21/18 00:54 RDW Coeff of Sandor 12.5 % (11.5-14.5) 10/21/18 00:54 Plt Count 245 K/uL (130-400) 10/21/18 00:54 MPV 10.5 fL (7.4-10.4) H 10/21/18 00:54 Immature Gran % (Auto) 0.2 % 10/21/18 00:54 Neut % (Auto) 86.8 % 10/21/18 00:54 Lymph % (Auto) 5.5 % 10/21/18 00:54 [place] % (Auto) 6.8 % 10/21/18 00:54 Eos % (Auto) 0.6 % 10/21/18 00:54 Baso % (Auto) 0.1 % 10/21/18 00:54 Immature Gran # (Auto) 0.04 K/uL (0.00-0.02) H 10/21/18 00:54 Neut # (Auto) 14.78 K/uL (1.4-6.5) H 10/21/18 00:54 Lymph # (Auto) 0.94 K/uL (1.2-3.4) L 10/21/18 00:54 [place] # (Auto) 1.16 K/uL (0.11-0.59) H 10/21/18 00:54 Eos # (Auto) 0.10 K/uL (0-0.5) 10/21/18 00:54 Baso # (Auto) 0.02 K/uL (0-0.2) 10/21/18 00:54 Sodium 138 mmol/L (136-145) 10/21/18 00:54 Potassium 3.8 mmol/L (3.5-5.1) 10/21/18 00:54 Chloride 105 mmol/L (98-107) 10/21/18 00:54 Carbon Dioxide 26 mmol/L (21-32) 10/21/18 00:54 Anion Gap 7.0 (3-11) 10/21/18 00:54 BUN 26 mg/dl (7-18) H 10/21/18 00:54 Creatinine 1.23 mg/dl (0.6-1.2) H 10/21/18 00:54 Est Cr Clr Drug Dosing Not Reportable 10/21/18 00:54 Est GFR ( Amer) 51.5 10/21/18 00:54 Est GFR (Non-Af Amer) 44.4 10/21/18 00:54 BUN/Creatinine Ratio 21.3 (10-20) H 10/21/18 00:54 Glucose 134 mg/dl (70-99) H 10/21/18 00:54 Calcium 8.8 mg/dl (8.5-10.1) 10/21/18 00:54 Magnesium 1.6 mg/dl (1.8-2.4) L 10/21/18 00:54 Total Bilirubin 1.1 mg/dl (0.2-1) H 10/21/18 00:54 AST 25 U/L (15-37) 10/21/18 00:54 ALT 30 U/L (12-78) 10/21/18 00:54 Alkaline Phosphatase 87 U/L (45-117) 10/21/18 00:54 Troponin I < 0.015 ng/ml (0-0.045) 10/21/18 00:54 Total Protein 7.9 gm/dl (6.4-8.2) 10/21/18 00:54 Albumin 3.8 gm/dl (3.4-5.0) 10/21/18 00:54 Globulin 4.1 gm/dl (2.5-4.0) H 10/21/18 00:54 Albumin/Globulin Ratio 0.9 (0.9-2) 10/21/18 00:54 Lipase 83 U/L (73-393) 10/21/18 00:54 Urine Color Yellow 10/21/18 02:13 Urine Appearance Clear (Clear) 10/21/18 02:13 Urine pH 7.5 (4.5-7.5) 10/21/18 02:13 Ur Specific [place] 1.016 (1.000-1.030) 10/21/18 02:13 Urine Protein Negative (Negative) 10/21/18 02:13 Urine Glucose (UA) Negative (Negative) 10/21/18 02:13 Urine Ketones Negative (Negative) 10/21/18 02:13 Urine Blood 2+ (Negative) H 10/21/18 02:13 Urine Nitrite Negative (Negative) 10/21/18 02:13 Urine Bilirubin Negative (Negative) 10/21/18 02:13 Urine Urobilinogen Negative (Negative) 10/21/18 02:13 Ur Leukocyte Esterase 1+ (Negative) H 10/21/18 02:13 Urine WBC (Auto) 1-5 /hpf (0-5) 10/21/18 02:13 Urine RBC (Auto) 10-30 /hpf (0-4) H 10/21/18 02:13 U Hyaline Cast (Auto) 1-5 /lpf (0-5) 10/21/18 02:13 U Epithel Cells (Auto) 10-20 /lpf (0-5) H 10/21/18 02:13 Urine Bacteria (Auto) Negative (Negative) 10/21/18 02:13 Influenza Type A (PCR) Neg for Influ A (Neg) 10/21/18 01:08 Influenza Type B (PCR) Neg for Influ B (Neg) 10/21/18 01:[address] abdomen pelvis initial read: No appendicitis. Right colon distended with fluid. Mild to moderate stool distal colon. Gastroenteritis. No bowel obstruction. Chest x-ray as per my interpretation atelectasis EKG as per my interpretation no ischemia
[2018-10-21] MEDS ORDERED: HYDROmorphone INJ 0.5 MG/0.5 ML SYR IV PRN (04:57)
[2018-10-21] MEDS ORDERED: ACETAMINOPHEN 325 MG TAB PO PRN (04:57)
[2018-10-21] MEDS ORDERED: NSS + 20MEQ KCL 20 MEQ/1,000 ML BAG IV ONE (05:30)
[2018-10-21 06:18] LABS: INR 1.1 (0.9-1.1); Prothrombin Time 10.7 Seconds (9.0-12.0)
--- NOTE | 2018-10-21 07:16 | XRay Report ---
SINGLE VIEW CHEST CLINICAL HISTORY: Cough. FINDINGS: An AP, portable, upright chest radiograph is compared to study dated 10/01/2018 and correlate d with chest CT dated 03/03/2018. The examination is degraded by portable technique and patient rotatio n. The patient is status post midline sternotomy. Epicardial pacing leads are noted. The heart is enl arged and there is atherosclerotic calcification of the thoracic aorta. There is mild elevation of le ft hemidiaphragm with associated atelectasis. No airspace consolidation or large pleural effusion is identified. Apical scarring is observed. No pneumothorax is seen. The skeletal structures are osteope domenic. The bony thorax is grossly intact. IMPRESSION: Cardiomegaly with no acute cardiopulmonary abnormality. Electronically signed by: Jl Bloom M.D. 10/21/2018 7:15 AM
--- NOTE | 2018-10-21 08:00 | CT Scan Report ---
CT SCAN OF THE ABDOMEN AND PELVIS WITH IV CONTRAST CLINICAL HISTORY: Right lower quadrant abdominal pain. COMPARISON STUDY: Abdominal CT dated 06/18/2016. TECHNIQUE: Following the IV administration of 92 cc of Optiray 320, CT scan of the abdomen and pelvi s is performed from the lung bases to the proximal femora. Images are reviewed in the axial, sagittal , and coronal planes. IV contrast was administered without complication. A dose lowering technique wa s utilized adhering to the principles of ALARA. CT DOSE: 584.48 mGy.cm FINDINGS: Lung bases: The patient is status post midline sternotomy. The heart is enlarged and without pericard ial effusion. Epicardial pacing leads are noted. The lung bases are clear noting dependent atelectasi s. Liver: The contrast-enhanced liver is normal in size, contour, and attenuation. There is no intrahepa tic biliary ductal dilatation. The hepatic veins and portal veins are patent. Gallbladder: Unremarkable. Spleen: Normal in size and attenuation. Pancreas: Unremarkable. Adrenal glands: Unremarkable. Kidneys: The contrast enhanced kidneys are normal in size and without hydronephrosis. The kidneys enh ance symmetrically. Abdominal vasculature: There is advanced atherosclerotic calcification mild ectasia of the abdominal aorta. Bowel: There is moderate to severe constipation. No bowel obstruction is identified. Liquid stool is noted in the right colon. The appendix is well-visualized and normal. Peritoneum: There is no intraperitoneal free air or abdominal ascites. Lymphadenopathy: None. Pelvic viscera: The bladder, uterus, and adnexa are normal as visualized. Skeletal structures: The skeletal structures are osteopenic. There is moderate lumbosacral spondylosi s. 11 mm of anterolisthesis is seen at L4-L5 with advanced disc space narrowing at this level. No lyt ic or blastic lesions are seen. IMPRESSION: 1. There is moderate to severe constipation. No bowel obstruction is seen. 2. Liquid stool is noted in the right colon. Correlate clinically for evidence of a diarrheal illness . 3. Additional findings as above. Electronically signed by: Jl Bloom M.D. 10/21/2018 7:58 AM
[2018-10-21] MEDS: HEPARIN SOD 5,000 UNIT/0.5 ML VIAL SQ SCH ×3 (08:27→20:40)
[2018-10-21] MEDS: CITALOPRAM 20 MG TAB PO SCH (08:44)
[2018-10-21] MEDS: predniSONE 5 MG TAB PO SCH (08:44)
[2018-10-21] MEDS: PANTOprazole 40 MG TAB PO SCH ×2 (08:45→20:40)
[2018-10-21] MEDS ORDERED: AMLODIPINE BESYLATE 5 MG TAB PO SCH (09:00)
--- NOTE | 2018-10-21 10:26 | Hospitalist Progress Note ---
Date of Service October 21, 2018 Assessment & Plan (1) Diarrhea: Hx chronic constipation, with BM's typically once a week. Reports yesterday had 3 episodes loose, watery stools with lower abdominal pain. Prior to yesterday no BM for one week. WBC: 17, K: 3.8, gluc: 134. lipase: 83, LFTs WNL, UA: 2+blood, 1+leuk, 10-30 RBC , 10-20 epithelial -Since overnight admission has not had any further BM's. Still with lower abdominal discomfort. C/O nausea, no vomiting. -no abdominal tenderness to palpation on exam -CT Abd/pelvis: moderate to severe constipation. No bowel obstruction is seen. Liquid stool is noted in the right colon. -Had one dose of Flagyl IV given -pending C-diff to be obtained as no further diarrhea -Tolerated clear liquids for breakfast -If tolerate clear liquids for lunch consider advancing to full liquid diet -pending urine culture -Has NSS + K 20meq infusing at rate of 80ml/hr x 1 L -If no further diarrhea and no vomiting and tolerating diet will hold on further IVF -repeat CBC, bmp in am (2) Hypomagnesemia: Magnesium: 1.6 -Was given 1gm magnesium -magnesium lab in am (3) GERD (gastroesophageal reflux disease): Pt with hx admission 10/01/18-10/02/18 for L sided burning CP with radiation to axilla, associated with nausea and SOB and reported heartburn. Was discharge on Protonix BID thought secondary to GERD. Pt states continues to have intermittent heartburn and CP, no increased symptoms. -Had outpatient nuclear stress test which was negative for inducible ischemia. -No current CP -continue PPI -If continued symptoms pt may need further out patient GI workup (4) CKD (chronic kidney disease), stage III: Cr: 1.2. Baseline 1.0. GFR: 44, baseline ~56-59 -IVF -monitor renal functions -avoid nephrotoxic agents when possible, home NSAIDs on hold at this time (5) Atrial fibrillation: Hx a-fib after surgery. No further events. 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 Solares in clinic (8) Chronic diastolic HF (heart failure): 10/02/18 echo: EF: 60-65%, grade I diastolic dysfunction -appeared mildy dry on admission (9) PMR (polymyalgia rheumatica): Follows with [facility] [place] rheumatology -Continue prednisone (10) Depression: -continue celexa (11) DVT prophylaxis: -Heparin SQ Anticipate discharge home with follow up with PCP Dr Carreon Pt was seen with Dr Veronica. See addendum Subjective Pt seen and examined. Lying in bed. Pt reports hx chronic constipation, with BM's typically once a week. Reports yesterday had 3 episodes loose, watery stools with lower abdominal pain. Prior to yesterday no BM for one week. Since admission has not had any further BM's. Still with lower abdominal discomfort. C/O nausea, no vomiting. Tolerated clear fluids for breakfast without increased nausea or abdominal pain. Denies any current CP or SOB. Denies fever/chills, melena, hematochezia, dizziness, syncope, cough, paresthesias, weakness, extremity edema, rashes, urinary symptoms. Pt with hx admission 10/01/18-10/02/18 for L sided burning CP with radiation to axilla, associated with nausea and SOB and reported heartburn. Was discharge on Protonix BID. Pt states continues to have intermittent heartburn and CP, no increased symptoms. Had outpatient nuclear stress test which was negative for inducible ischemia. Physical Exam 2 Vital Signs (Past 24 Hours): Last Vital Signs Temp 36.4 C L 10/21/18 07:00 Pulse 75 10/21/18 07:00 Resp 16 10/21/18 07:00 BP 100/64 10/21/18 07:00 Pulse Ox 94 10/21/18 07:00 Physical Exam: General: no apparent distress, WDWN Head: normocephalic, atraumatic Eyes: PERRL, EOM's intact, conjunctiva non-injected, anicteric ENT: normal inspection external ears, nose, mucous membranes moist Neck: supple, trachea midline, non-tender Lungs: clear, no respiratory distress, no wheezing/rhonchi/rales CV: RRR, no pretibial edema Abd: normal BS, soft, non-tender to palpation Ext: no cyanosis, no calf tenderness Neuro: A&O x 3, no focal deficits noted, normal affect Skin: warm, dry Results & Data Laboratory Results Short CBC 10/21/18 Range/Units 00:54 WBC 17.04 H (4.8-10.8) K/uL Hgb 15.0 (12.0-16.0) g/dL Hct 44.9 (37-47) % Plt Count 245 (130-400) K/uL BMP 10/21/18 00:54 Sodium 138 Potassium 3.8 Chloride 105 Carbon Dioxide 26 BUN 26 H Creatinine 1.23 H Glucose 134 H Calcium 8.8 Cardiac Enzymes 10/21/18 Range/Units 00:54 Troponin I < 0.015 (0-0.045) ng/ml Liver Function 10/21/18 Range/Units 00:54 Total Bilirubin 1.1 H (0.2-1) mg/dl AST 25 (15-37) U/L ALT 30 (12-78) U/L Alkaline Phosphatase 87 (45-117) U/L Albumin 3.8 (3.4-5.0) gm/dl Urine 10/21/18 Range/Units 02:13 Urine Color Yellow Urine Appearance Clear (Clear) Urine pH 7.5 (4.5-7.5) Ur Specific [place] 1.016 (1.000-1.030) Urine Protein Negative (Negative) Urine Glucose (UA) Negative (Negative) Diagnostic Findings CT ABD/PELVIS: IMPRESSION: 1. There is moderate to severe constipation. No bowel obstruction is seen. 2. Liquid stool is noted in the right colon. Correlate clinically for evidence of a diarrheal illness.
[2018-10-21] MEDS: TRAMADOL HCL 50 MG TABLET PO PRN (19:31)
[2018-10-21] MEDS ORDERED: ATORVASTATIN 20 MG TAB PO SCH (21:00)
[2018-10-21] MEDS ORDERED: ASPIRIN 81 MG ECTAB PO SCH (21:00)
[2018-10-22] MEDS: HEPARIN SOD 5,000 UNIT/0.5 ML VIAL SQ SCH ×2 (05:46→14:18)
[2018-10-22] MEDS: TRAMADOL HCL 50 MG TABLET PO PRN (05:48)
[2018-10-22 06:33] LABS: Basophils # (auto) 0.03 K/uL (0-0.2); Basophils % (auto) 0.3 %; Eosinophils # (auto) 0.22 K/uL (0-0.5); Eosinophils % (auto) 2.2 %; Hematocrit (blood only) 40.3 % (37-47); Hemoglobin 12.9 g/dL (12.0-16.0); Immature Granulocytes # (auto) 0.03 K/uL (0.00-0.02); Immature Granulocytes % (auto) 0.3 %; Lymphocytes # (auto) 1.45 K/uL (1.2-3.4); Lymphocytes % (auto) 14.4 %; Mean Corpuscular Volume 93.5 fL (80-100); Mean Platelet Volume 10.4 fL (7.4-10.4); Monocytes # (auto) 1.27 K/uL (0.11-0.59); Monocytes % (auto) 12.6 %; Neutrophils # (auto) 7.07 K/uL (1.4-6.5); Neutrophils % (auto) 70.2 %; Platelet Count 197 K/uL (130-400); RDW Coefficient of Variation 12.9 % (11.5-14.5); RDW Standard Deviation 44.3 fL (36.4-46.3); Red Blood Count 4.31 M/uL (4.2-5.4); White Blood Count 10.07 K/uL (4.8-10.8)
[2018-10-22 07:07] LABS: BUN Creatinine Ratio 17.5 (10-20); Calcium 8.3 mg/dl (8.5-10.1); Creatinine Clr Calc Pharmacy 67.4 ml/min; Est GFR (African American) 78.2; Est GFR (Non-African American) 67.5; Magnesium 2.1 mg/dl (1.8-2.4); Potassium 3.6 mmol/L (3.5-5.1)
[2018-10-22] MEDS: predniSONE 5 MG TAB PO SCH (08:31)
[2018-10-22] MEDS: PANTOprazole 40 MG TAB PO SCH (08:31)
[2018-10-22] MEDS: CITALOPRAM 20 MG TAB PO SCH (08:31)
[2018-10-22] MEDS ORDERED: COUGH DROP (SUGAR FREE) LOZ 24 LOZ/1 BOX BUCCAL PRN (15:27)
--- NOTE | 2018-10-22 15:44 | Discharge Summary ---
Date of Service October 22, 2018 Admission HPI Per Admitting Provider History obtained from patient and records. Medical history significant for chronic diastolic heart failure (EF 65%) as per records, hypertension, PAF, history of atrial myxoma status post surgery/AVR, PVD, cerebral aneurysm status post surgery, history CVA on CT, PMR on chronic steroid therapy, mood disorder, past tobacco abuse. Recent confinement 2 weeks ago for chest pain attributed to GERD. Protonix increased to twice daily dosing. Outpatient Lexiscan nuclear stress test was normal. 2 days history of nausea, vomiting, achy lower abdominal pain symptoms, diarrhea , nonbloody, no fever, no chills. No recent antibiotics, could not keep anything down. Transient left-sided chest pain, no SOB. 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 Diagnosis ABDOMINAL PAIN /NAUSEA /VOMITING -RESOLVED , POSSIBLE VIRAL GASTRENTERITIS Discharge Exam GENERAL: No sign of distress, HEENT: Sclera nonicteric, pink-purple bilateral equal reactive to light extraocular muscle intact Normal oral mucosa, neck: No JVD, no thyromegaly, trachea midline Lungs: Clear to auscultate, no wheeze or rales Cardiovascular: Regular S1 and S2, no murmur or gallop, no JVD, no lower extremity edema Abdomen: Soft, nontender, bowel sounds active, no hepatosplenomegaly Extremities: No rash or deformity, normal joint, Neuro: No focal neurological deficit, no dysarthria, no facial droop Psych: Alert awake oriented x3: Euthymic Skin: No rash LYMPH NODES: No cervical lymphadenopathy Discharge Data Allergies Allergy/AdvReac Type Severity Reaction Status Date / Time lisinopril AdvReac Intermediate COUGH Verified 10/21/18 02:50 baclofen AdvReac Mild N/V Verified 10/21/18 02:50 Consultations 10/21/18 02:15 ED Decision to Admit Stat 10/21/18 04:57 Consult Case Management - Discharge Planning Routine Ordered Studies 10/21/18 00:50 CT abd pelvis IV con only Urgent Hospital Course (1) Diarrhea: Symptom completely resolved no futher episode of loose stool last BM was yesterday Hx chronic constipation, with BM's typically once a week. presented with 3 episodes loose, watery stools with lower abdominal pain. Prior to yesterday no BM for one week. WBC: 17, K: 3.8, gluc: 134. lipase: 83, LFTs WNL, UA: 2+blood, 1+leuk, 10-30 RBC , 10-20 epithelial -CT Abd/pelvis: moderate to severe constipation. No bowel obstruction is seen. Liquid stool is noted in the right colon. -diet advanced to solid -tolerating well no complain of nausea /vomiting or abdominal pain stable to be discharged home today (2) Hypomagnesemia: corrected (3) GERD (gastroesophageal reflux disease): Pt with hx admission 10/01/18-10/02/18 for L sided burning CP with radiation to axilla, associated with nausea and SOB and reported heartburn. Was discharge on Protonix BID thought secondary to GERD. Pt states continues to have intermittent heartburn and CP, no increased symptoms. -Had outpatient nuclear stress test which was negative for inducible ischemia. -no complain of chest pain or GOLDSMITH (4) CKD (chronic kidney disease), stage III: Cr: 1.2. Baseline 1.0. GFR: 44, baseline ~56-59 developed acute renal failure -due to poor pO intake , nausea /vomting , diarreha resolved Cr improved to baseline with IV fluids -avoid nephrotoxic agents when possible, home NSAIDs on hold at this time (5) Atrial fibrillation: Hx a-fib after surgery. No further events. 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 Solares in clinic (8) Chronic diastolic HF (heart failure): 10/02/18 echo: EF: 60-65%, grade I diastolic dysfunction -vol status stable (9) PMR (polymyalgia rheumatica): Follows with [facility] [place] rheumatology -Continue prednisone (10) Depression: -continue celexa (11) DVT prophylaxis: -Heparin SQ stable to be discharged home today (12) Acute renal failure superimposed on stage 3 chronic kidney disease: Total Time Total Time Spent Total Time Spent (In Minutes): approx 35 mins Total Time Includes: Examination of the Patient, Discharge Planning and Medication Reconciliation Discharge Plan Discharge Items Patient Disposition: Home - Self-Care Reason For Visit: ABDOMINAL PAIN Discharge Diagnosis: nausea /vomiting /abdominal pain /diarrhea possible viral gastroenteritis Acute renal failure -due to dehydration /resolved Condition: Good Discharge Goals: Decrease discomfort and Diagnostic testing Activity: Resume your previous activity Non-emergency contact: Primary Care Provider Call non-emergency contact if: you have any medication questions Follow-up/Referrals: Francisco Gill MD [Primary Care Provider] - 10/27/18 10:45 am Diet: Heart Healthy and Low Fiber Addtl Provider Instructions: KEEP YOURSELF HYDRATED WASH HANDS WITH SOAP AND WATER BEFORE EACH MEAL AND AFTER USING THE [facility] FOLLOW UP WITH DR GILL ON Saturday10/27/18 @ 10: 45 AM Prescriptions: Continue prednisone 5 mg tablet 5 mg PO QAM RF: 0 aspirin 81 mg Tablet,Delayed Release (Dr/Ec) 162 mg PO HS RF: 0 citalopram 20 mg tablet 20 mg PO QAM RF: 0 calcium carbonate-vitamin D3 [Caltrate 600 + D] 600 mg (1,500 mg)-800 unit Tablet,Chewable 1 tab PO QAM RF: 0 atorvastatin 20 mg Tablet 20 mg PO PM RF: 0 ibuprofen 200 mg Capsule 200 mg PO QID PRN (Reason: Pain) RF: 0 amlodipine 5 mg Tablet 5 mg PO DAILY RF: 0 pantoprazole 40 mg Tablet,Delayed Release (Dr/Ec) 40 mg PO BID 30 Days Qty: 60 RF: 0 Stand-Alone Forms: [facility] Discharge Orders: Discharge Order (Routine); Ordered 10/22/18 Ordered By: Juana Beatty Admission Data Admit Date/Time: 10/21/18 03:26 Attending Provider: Juana Beatty Admit Provider: Nick eGorge Primary Care Provider: Francisco Gill Other Providers: Nick George ; Bridget Veronica Service: Medical Other Interventions: Discharge Summary Assessment (RN) Last Done: 10/22/18 15:41 DC Date/Time DO NOT enter until pt leaves facility: 10/22/18 17:20
[2018-10-23] MEDS ORDERED: ENOXAPARIN INJ 40 MG/0.4 ML SYR SQ SCH (09:00)
== END 2018-10-22 17:20 | disposition home or self-care (01) ==
LOC: ED 00:27 → 4E 00:27 → SUATTDRO 03:26 → 4E 03:58

== ENCOUNTER 2023-06-02 04:11 | Inpatient (IN) ==
[2023-06-02] MEDS ORDERED: fentaNYL citrate PF 100 MCG/2 ML VIAL IV STA (04:32)
[2023-06-02] MEDS ORDERED: SODIUM CHLORIDE 0.9% 1,000 ML IV ONE (04:32)
[2023-06-02] MEDS ORDERED: ONDANSETRON INJ 2 MG/ML 2 ML VIAL IV STA ×2 (04:32→05:20)
--- NOTE | 2023-06-02 04:36 | Emergency Department Note ---
Impression & Plan Small bowel obstruction, Left inguinal hernia ED Provider Note Name: ZULEYMA BLACKWOOD Age: 72 Sex: F Arrives Via: Walk-In Informant: Patient and ED Provider: Benny Rodriguez MD Chief Complaint: Abdominal pain Impression: As per impression above Medical Decision Making: Pleasant 72-year-old female arrives for evaluation of abdominal pain. Essentially 3 to 4 hours of diffuse abdominal pain associated with nausea. While here started dry heaving and vomiting. Given IV pain medications nausea meds. Continues to have nausea. CT ab pelvis shows small bowel obstruction secondary to left inguinal hernia. On examination I really cannot palpate a hernia but I did try reducing the area nonetheless. Minimal discomfort with this patient tolerated well. He did put some ice pack on the area and had her in a bent knee position. A order was placed for NG tube and general surgery was consulted. She will be admitted to the hospitalist service. She and are comfortable with this plan. She is not septic and her abdomen is not peritonitic nor is her exam consistent with ischemia. Prior Medical Record and Triage/Nursing Notes reviewed by Me External chart reviewed by me including previous hospitalization records Differentials:Gastroenteritis, food borne illness, infections, appendicitis, diverticulitis, inflammatory bowel disease, obstruction, GI bleed, biliary pathology, volvulus, as well as other pathologies. Vital Signs: reviewed and remarkable for no significant abnormalities Interventions: Normal saline bolus, fentanyl IV, Zofran IV, Dilaudid IV, Ativan IV Labs:Reviewed and remarkable for no significant abnormalities Imaging:CT of the ab pelvis as per my informal interpretation reveals small bowel obstruction versus ileus with left inguinal hernia. This was confirmed by radiologist. EKG:As per my interpretation. Indication vomiting. Sinus rhythm with PACs at 70 bpm no ischemia appreciated. When compared to EKG of May 26, 2020 through the there is no significant change. Cardiac/Tele Monitoring: Cardiac Monitoring: An Order was placed for continuous cardiac monitoring. The monitor shows a rate of 70 with a normal sinus rhythm. Consults:Discussed with Dr. Blancas of general surgery as well as hospitalist Plan: Disposition:Hospitalization Condition: Good History of Present Illness:72-year-old female arrives for evaluation of abdominal pain. Patient with 3 hours of rapidly worsening diffuse abdominal pain. Associated with nausea. Denies any falls, trauma, injuries. Denies any vomiting, urinary burning, blood in stool, back pain, flank pain, chest pain, shortness of breath, fevers, chills, headache, neck pain or any other concerning signs or symptoms. She has similar pain about 10 years ago when she had some sort of splenic infarct which may have been secondary to an aortic valve issue. No medications prior to arrival. Nothing makes better or worse. Past History:See Below Home Medications:See Below Allergies:baclofen, lisinopril Vitals:Blood Pressure: 118/84, Pulse 77, RR 20, T 36.9C, O2 96% on RA Physical Exam: GENERAL: Patient is severely anxious and uncomfortable appearing and in moderate distress. RESPIRATORY: No dyspnea. Clear to auscultation and equal bilaterally. No wheeze, no rhonchi. CARDIOVASCULAR: Regular rate and rhythm.No murmurs, rubs, gallops appreciated. GASTROINTESTINAL: Abdomen soft, non-tender, no peritonitis.Bowel sounds positive.No masses appreciated. EXTREMITIES: Normal motion all extremities, no cyanosis, no edema. NEUROLOGIC: Alert and oriented, no focal neurologic deficit appreciated SKIN: No rash, no jaundice, no diaphoresis. PSYCH: Appropriate GCS: 15 ED Course: Times/Reassessments: Multiple repeat evaluations. Patient is feeling bit better but required NG tube has continued nausea vomiting and evidence of small bowel on CT. Benny Rodriguez MD Past Med/Surg History Medical History (Updated 06/03/23 @ 07:27 by Benny Rodriguez MD) Ascending aorta dilation Mild dilatation of the proximal ascending aorta was noted with max of 3.[address] chest, stable compared to prior CT scan. 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 [place] [facility] [place] in [place] PMR (polymyalgia rheumatica) Splenic infarct Surgical History H/O aortic valve repair H/O atrial septal defect repair History of cataract surgery History of tubal ligation S/P craniotomy Family History Mother Hypertension Breast cancer Colon cancer Father Hypertension Social History Smoking Status: Former smoker Tobacco Type: Cigarettes Cigarettes Per Day: 30; Hx Alcohol Use: No Hx Substance Use: No Preferred Language: Swedish Communication Ability: Effective 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 Beliefs That Will Affect Care: None Current Living Situation: Spouse Feels Safe at Home: Yes Assistive Devices: Glasses Allergies Allergies Allergy/AdvReac Type Severity Reaction Status Date / Time baclofen AdvReac Intermediate NAUSEA/VOMI Verified 03/18/23 01:07 TING lisinopril AdvReac Intermediate COUGH Verified 03/18/23 01:07 Home Meds Home Medications Medication Instructions Recorded Confirmed amlodipine 5 mg tablet 5 mg PO QAM 10/01/18 06/02/23 aspirin 81 mg tablet,delayed 81 mg PO PM 10/01/18 06/02/23 release atorvastatin 20 mg tablet 20 mg PO HS 10/01/18 06/02/23 calcium carbonate 600 mg-vitamin 1 tab PO QAM 10/01/18 06/02/23 D3 20 mcg (800 unit) chewable tablet (Caltrate 600 plus D) prednisone 5 mg tablet 5 mg PO QAM 10/01/18 06/02/23 pantoprazole 40 mg tablet,delayed 40 mg PO DAILYBB 07/04/21 06/02/23 release (Protonix) Lactobacil.acidophilus-Bifido.animalis 1 cap PO BID 03/18/23 06/02/23 5 billion cell sprinkle capsule (Probiotic) acetaminophen 325 mg tablet 650 mg PO DIRECTED PRN 03/18/23 06/02/23 (Tylenol) FEVER/PAIN duloxetine 20 mg capsule,delayed 20 mg PO QAM 03/18/23 06/02/23 release ibuprofen 200 mg tablet 400 mg PO Q4H PRN PAIN/FEVER 03/18/23 06/02/23 Results & Data (ED) Vital Signs Vital Signs - 24 hr 06/02/23 07:30 06/02/23 07:30 06/02/23 08:00 Pulse Rate 71 Pulse Rate from SpO2 Sensor 69 Respiratory Rate 15 Blood Pressure 131/61 135/63 Blood Pressure Mean 91 99 Pulse Oximetry 97 Oxygen Delivery Method Nasal Cannula Oxygen Flow Rate 2 06/02/23 08:00 Pulse Rate 69 Pulse Rate from SpO2 Sensor 69 Respiratory Rate 15 Blood Pressure Blood Pressure Mean Pulse Oximetry 97 Oxygen Delivery Method Oxygen Flow Rate 2 Laboratory Data 06/03/23 05:46 06/03/23 05:46 Lab Results 06/02/23 06/02/23 06/02/23 Range/Units 04:48 04:48 04:48 WBC 21.29 H (4.8-10.8) K/ul RBC 4.70 (4.20-5.40) M/uL Hgb 14.2 (12.0-16.0) g/dl POC Hgb (12.0-16.0) g/dl Hct 43.5 (37.0-47.0) % POC Hct (37-47) % MCV 92.6 (80.0-100.0) fL MCH 30.2 (25.0-34.0) pg MCHC 32.6 (32.0-36.0) g/dL RDW Std Deviation 42.6 (36.4-46.3) fL RDW Coeff of Sandor 12.4 (11.5-14.5) % Plt Count 225 (130-400) K/uL MPV 10.8 (9.4-12.4) fL Immature Gran % (Auto) 0.5 % Neut % (Auto) 83.8 % Lymph % (Auto) 8.4 % Anson % (Auto) 6.6 % Eos % (Auto) 0.4 % Baso % (Auto) 0.3 % Neut # (Auto) 17.84 H (1.40-6.50) K/uL Lymph # (Auto) 1.79 (1.20-3.40) K/uL Anson # (Auto) 1.40 H (0.11-0.59) K/uL Eos # (Auto) 0.09 (0.00-0.50) K/uL Baso # (Auto) 0.06 (0.00-0.20) K/uL Immature Gran # (Auto) 0.11 (0.01-0.20) K/uL POC Sodium (135-144) mmol/L Sodium 139 (136-145) mmol/L POC Potassium (3.3-5.0) mmol/L Potassium 4.1 (3.5-5.1) mmol/L POC Chloride (101-112) mmol/L Chloride 105 (98-107) mmol/L Carbon Dioxide 27 (21-32) mmol/L POC Total CO2 (24-31) mmol/L Anion Gap 7 (3-11) POC Anion Gap (16-25) mmol/L POC BUN (7-18) mg/dl BUN 30 H (6-23) mg/dl Creatinine 1.22 H (0.6-1.2) mg/dl POC Creatinine (0.6-1.3) mg/dl Est Cr Clr Drug Dosing Not Reportable Est GFR ( Amer) 50.5 ml/min Est GFR (Non-Af Amer) 43.6 ml/min BUN/Creatinine Ratio 24.6 H (10-20) Glucose 84 (70-99(Fasting)) mg/dl POC Glucose (other) (70-99) mg/dl Lactate 1.3 (0.4-2.0) mmol/L Calcium 9.0 (8.6-10.3) mg/dl POC Ioniz Calcium Apolinar (1.12-1.32) mmol/l Magnesium 1.9 (1.7-2.4) mg/dl Total Bilirubin 1.1 H (0.2-1.0) mg/dl Direct Bilirubin TNP AST 23 (13-39) U/L ALT 12 (7-52) U/L Alkaline Phosphatase 62 (34-104) U/L Troponin I High Sens 7.5 (0-14) pg/ml Total Protein 7.0 (6.0-8.3) gm/dl Albumin 4.2 (3.4-5.0) gm/dl Lipase 22 (11-82) U/L 06/02/23 Range/Units 04:54 WBC (4.8-10.8) K/ul RBC (4.20-5.40) M/uL Hgb (12.0-16.0) g/dl POC Hgb 15.0 (12.0-16.0) g/dl Hct (37.0-47.0) % POC Hct 44 (37-47) % MCV (80.0-100.0) fL MCH (25.0-34.0) pg MCHC (32.0-36.0) g/dL RDW Std Deviation (36.4-46.3) fL RDW Coeff of Sandor (11.5-14.5) % Plt Count (130-400) K/uL MPV (9.4-12.4) fL Immature Gran % (Auto) % Neut % (Auto) % Lymph % (Auto) % Anson % (Auto) % Eos % (Auto) % Baso % (Auto) % Neut # (Auto) (1.40-6.50) K/uL Lymph # (Auto) (1.20-3.40) K/uL Anson # (Auto) (0.11-0.59) K/uL Eos # (Auto) (0.00-0.50) K/uL Baso # (Auto) (0.00-0.20) K/uL Immature Gran # (Auto) (0.01-0.20) K/uL POC Sodium 141 (135-144) mmol/L Sodium (136-145) mmol/L POC Potassium 4.0 (3.3-5.0) mmol/L Potassium (3.5-5.1) mmol/L POC Chloride 104 (101-112) mmol/L Chloride (98-107) mmol/L Carbon Dioxide (21-32) mmol/L POC Total CO2 26 (24-31) mmol/L Anion Gap (3-11) POC Anion Gap 15.0 L (16-25) mmol/L POC BUN 30 H (7-18) mg/dl BUN (6-23) mg/dl Creatinine (0.6-1.2) mg/dl POC Creatinine 1.3 (0.6-1.3) mg/dl Est Cr Clr Drug Dosing Est GFR ( Amer) ml/min Est GFR (Non-Af Amer) ml/min BUN/Creatinine Ratio (10-20) Glucose (70-99(Fasting)) mg/dl POC Glucose (other) 85 (70-99) mg/dl Lactate (0.4-2.0) mmol/L Calcium (8.6-10.3) mg/dl POC Ioniz Calcium Apolinar 1.08 L (1.12-1.32) mmol/l Magnesium (1.7-2.4) mg/dl Total Bilirubin (0.2-1.0) mg/dl Direct Bilirubin AST (13-39) U/L ALT (7-52) U/L Alkaline Phosphatase (34-104) U/L Troponin I High Sens (0-14) pg/ml Total Protein (6.0-8.3) gm/dl Albumin (3.4-5.0) gm/dl Lipase (11-82) U/L Administered Medications Hydromorphone HCl (Hydromorphone Inj 0.5 Mg/0.5 Ml Syr) 0.25 mg IV Q4H PRN PRN Reason: Severe Pain (Scale 7, 8, 9,10) Stop: 06/16/23 12:12 Last Admin: 06/03/23 01:45 Dose: 0.25 mg Documented By: CHRIS Potassium Chloride/Sodium Chloride (Normal Saline W/20 Meq Kcl) 20 meq in 1,000 mls @ 50 mls/hr IV .Q20H AARTI Stop: 07/02/23 12:29 Last Admin: 06/03/23 05:22 Dose: 50 mls/hr Documented By: Infusion: 06/03/23 05:22 Dose: 50 mls/hr Documented By: Infusion: 06/02/23 18:17 Dose: 50 mls/hr Documented By: Admin: 06/02/23 12:54 Dose: 80 mls/hr Documented By: NISH Pantoprazole Sodium 40 mg/ (Syringe) 10 mls @ 5 mls/min IV DAILY AARTI Stop: 07/02/23 12:44 Last Admin: 06/02/23 13:23 Dose: 5 mls/min Documented By: CHAU Acetaminophen ([facility]) 1,000 mg in 100 mls @ 400 mls/hr IV Q8 PRN PRN Reason: pain Stop: 06/05/23 12:59 Last Infusion: 06/02/23 19:36 Dose: 0 mls/hr Documented By: Admin: 06/02/23 19:20 Dose: 400 mls/hr Documented By: CHRIS Discontinued Medications Fentanyl Citrate (Fentanyl Citrate Pf 100 Mcg/2 Ml Vial) 50 mcg IV NOW STA Stop: 06/02/23 04:33 Last Admin: 06/02/23 04:55 Dose: 50 mcg Documented By: SHANIKA Hydrocortisone Sodium Succinate (Hydrocortisone Sod Succinate 100 Mg/2 Ml Vial) 50 mg IV DAILY STA Stop: 06/02/23 12:14 Last Admin: 06/02/23 12:53 Dose: 50 mg Documented By: NISH Hydromorphone HCl (Hydromorphone Inj 0.5 Mg/0.5 Ml Syr) 0.5 mg IV NOW STA Stop: 06/02/23 05:21 Last Admin: 06/02/23 05:22 Dose: 0.5 mg Documented By: SHANIKA Hydromorphone HCl (Hydromorphone Inj 0.5 Mg/0.5 Ml Syr) 0.5 mg IV NOW STA Stop: 06/02/23 06:42 Last Admin: 06/02/23 06:45 Dose: 0.5 mg Documented By: SHANIKA Sodium Chloride (Nss 1000ml) 1,000 mls @ 999 mls/hr IV .Q1H1M ONE Stop: 06/02/23 05:32 Last Infusion: 06/02/23 06:24 Dose: 0 mls/hr Documented By: Admin: 06/02/23 04:53 Dose: 999 mls/hr Documented By: SHANIKA Sodium Chloride (Nss) 500 mls @ 999 mls/hr IV .Q31M ONE Stop: 06/02/23 07:31 Last Infusion: 06/02/23 08:42 Dose: 0 mls/hr Documented By: Admin: 06/02/23 08:11 Dose: 999 mls/hr Documented By: CHAU Acetaminophen (Ofirmev) 1,000 mg in 100 mls @ 400 mls/hr IV Q8 AARTI Stop: 06/05/23 12:59 Last Infusion: 06/02/23 13:09 Dose: 0 mls/hr Documented By: Admin: 06/02/23 12:54 Dose: 400 mls/hr Documented By: NISH Famotidine 20 mg/ Syringe 5 mls @ 2.5 mls/min IV NOW STA Stop: 06/03/23 04:59 Last Admin: 06/03/23 05:22 Dose: 2.5 mls/min Documented By: CHRIS Ioversol (Optiray 320 100ml) 92 ml IV ONCE ONE Stop: 06/02/23 05:19 Last Admin: 06/02/23 05:19 Dose: 92 ml Documented By: RICHI Lorazepam (Lorazepam 2 Mg/1 Ml Vial) 0.25 mg IV NOW STA Stop: 06/02/23 07:01 Last Admin: 06/02/23 08:12 Dose: 0.25 mg Documented By: CHAU Ondansetron HCl (Ondansetron Inj 2 Mg/Ml 2 Ml Vial) 4 mg IV NOW STA Stop: 06/02/23 04:33 Last Admin: 06/02/23 04:53 Dose: 4 mg Documented By: SHANIKA Ondansetron HCl (Ondansetron Inj 2 Mg/Ml 2 Ml Vial) 4 mg IV NOW STA Stop: 06/02/23 05:21 Last Admin: 06/02/23 05:22 Dose: 4 mg Documented By: SHANIKA Discharge Plan Visit Data Chief Complaint: Abdominal Pain Stated Complaint: ABD PAIN ED Provider: Benny Rodriguez Discharge Problem: Small bowel obstruction, Left inguinal hernia Patient Disposition: Admitted As Inpatient Discharge Instructions Interventions: ED Discharge Assessment Last Done: 06/02/23 12:13
[2023-06-02 05:14] LABS: iSTAT Creatinine 1.3 mg/dl (0.6-1.3); iSTAT Ionized Calcium 1.08 mmol/l (1.12-1.32)
[2023-06-02] MEDS ORDERED: OPTIRAY 320 100ml IV ONE (05:18)
[2023-06-02 05:19] LABS: Basophils # (auto) 0.06 K/uL (0.00-0.20); Basophils % (auto) 0.3 %; Eosinophils # (auto) 0.09 K/uL (0.00-0.50); Eosinophils % (auto) 0.4 %; Hematocrit (blood only) 43.5 % (37.0-47.0); Hemoglobin 14.2 g/dl (12.0-16.0); Immature Granulocytes # (auto) 0.11 K/uL (0.01-0.20); Immature Granulocytes % (auto) 0.5 %; Lymphocytes # (auto) 1.79 K/uL (1.20-3.40); Lymphocytes % (auto) 8.4 %; Mean Corpuscular Hemoglobin 30.2 pg (25.0-34.0); Mean Corpuscular Hgb Conc 32.6 g/dL (32.0-36.0); Mean Corpuscular Volume 92.6 fL (80.0-100.0); Mean Platelet Volume 10.8 fL (9.4-12.4); Monocytes % (auto) 6.6 %; Neutrophils # (auto) 17.84 K/uL (1.40-6.50); Neutrophils % (auto) 83.8 %; Platelet Count 225 K/uL (130-400); RDW Coefficient of Variation 12.4 % (11.5-14.5); RDW Standard Deviation 42.6 fL (36.4-46.3); White Blood Count 21.29 K/ul (4.8-10.8)
[2023-06-02] MEDS ORDERED: HYDROmorphone INJ 0.5 MG/0.5 ML SYR IV STA ×2 (05:20→06:41)
[2023-06-02 06:25] LABS: Alanine Aminotransferase 12 U/L (7-52); Albumin Level 4.2 gm/dl (3.4-5.0); Alkaline Phosphatase 62 U/L (34-104); Anion Gap 7 (3-11); Aspartate Aminotransferase 23 U/L (13-39); BUN Creatinine Ratio 24.6 (10-20); Bilirubin,Total 1.1 mg/dl (0.2-1.0); Blood Urea Nitrogen 30 mg/dl (6-23); Carbon Dioxide 27 mmol/L (21-32); Chloride 105 mmol/L (98-107); Est GFR (African American) 50.5 ml/min; Est GFR (Non-African American) 43.6 ml/min; Glucose 84 mg/dl (70-99(Fasting)); Lipase 22 U/L (11-82); Magnesium 1.9 mg/dl (1.7-2.4); Potassium 4.1 mmol/L (3.5-5.1); Sodium 139 mmol/L (136-145); Troponin I High Sensitivity 7.5 pg/ml (0-14)
[2023-06-02 06:50] LABS: Appearance Urine Clear (Clear); Bacteria Urine Automated Negative (Negative); Bilirubin Urine Negative (Negative); Blood Urine 1+ (Negative); Cast Urine Automated 0 /lpf (0-5); Color Urine Yellow; Epithelial Cell Urine Auto 0-5 /lpf (0-5); Glucose Urine UA Negative (Negative); Ketones Urine Negative (Negative); Leukocyte Esterase Urine Negative (Negative); Nitrite Urine Negative (Negative); Protein Urine Negative (Negative); Specific Gravity Urine 1.025 (1.000-1.030); Urobilinogen Urine Negative (Negative); WBC Urine Automated 0 /hpf (0-5); pH Urine 7.5 (4.5-7.5)
[2023-06-02] MEDS ORDERED: LORazepam 2 MG/1 ML VIAL IV STA (07:00)
[2023-06-02] MEDS ORDERED: SODIUM CHLORIDE 0.9% 500 ML IV ONE (07:01)
--- NOTE | 2023-06-02 07:16 | CT Scan Report ---
CT SCAN OF THE ABDOMEN AND PELVIS WITH IV CONTRAST CLINICAL HISTORY: Generalized abdominal pain. Nausea. COMPARISON STUDY: Abdominal CT dated 03/18/2023. TECHNIQUE: Following the IV administration of 92 cc of Optiray 320, CT scan of the abdomen and pelvi s is performed from the lung bases to the proximal femora. Images are reviewed in the axial, sagittal , and coronal planes. IV contrast was administered without complication. A dose lowering technique wa s utilized adhering to the principles of ALARA. CT DOSE: 1365.85 mGy.cm FINDINGS: Lung bases: The patient is status post midline sternotomy. Epicardial leads are in place. The heart i s normal in size and without pericardial effusion. The coronary arteries are densely calcified. The l steven bases are clear noting dependent atelectasis. Liver: The contrast-enhanced liver is normal in size, contour, and attenuation. There is no intrahepa tic biliary ductal dilatation. The hepatic veins and portal veins are patent. Gallbladder: Unremarkable. Spleen: Normal in size and attenuation. Pancreas: The pancreas is mildly atrophic.. Adrenal glands: Unremarkable. Kidneys: The contrast enhanced kidneys are normal in size and without hydronephrosis. The kidneys enh ance symmetrically. Abdominal vasculature: The abdominal aorta is normal in course and caliber noting advanced atheroscle rotic calcification. Bowel: There is a left inguinal hernia which contains a segment of small bowel. The upstream small rosalia wel is mildly distended and fluid-filled. The distal small bowel is decompressed, and this contribute s to at least partial small bowel obstruction. No focally thick-walled bowel loops are identified. Th ere is no pneumatosis intestinalis or portal venous gas. Liquid stool is noted in the right colon. Mo derate fecal retention is seen in the left colon. The appendix is well-visualized and normal. Peritoneum: There is no intraperitoneal free air or abdominal ascites. There is a small fat-containin g umbilical hernia. Lymphadenopathy: None. Pelvic viscera: The bladder, uterus, and adnexa are normal as visualized. There is a small bowel cont aining left inguinal hernia. See above. Skeletal structures: The skeletal structures are osteopenic. There is mild to moderate lumbosacral sp ondylosis. Grade 1 anterolisthesis is noted at L4-L5. No lytic or blastic lesions are seen. IMPRESSION: 1. There is a loop of small bowel contained within a left inguinal hernia. The upstream small bowel i s mildly distended and fluid-filled, and the distal small bowel is decompressed. This likely represen ts a partial small bowel obstruction. 2. No intraperitoneal free air is seen. No thick walled bowel loops are identified and there is no pn eumatosis intestinalis or portal venous gas. 3. Additional findings as above. ACT 112: Negative or not required by law. Electronically signed by: Jl Bloom M.D. 06/02/2023 7:13 AM
--- NOTE | 2023-06-02 07:50 | Surgery Consultation ---
I have seen and examined this patient. Upon deeper questioning, she does admit to having a small annoying discomfort deep in the left groin for the past month but had no idea she had a hernia. She says she does not have this discomfort now and her previously severe, diffuse abdominal pain is almost completely resolved. She remains with a very small amount of nausea but this is also r esolving. Little fluid from the NGT. A small amount of gastric fluid present, not dark bilious. She is non tender on exam and the hernia is reduced. Will admit to monitor and I have discussed repair at some point, quite possibly during this admission. Will f/u am labs and replete electrolytes as needed. Date of Consultation June 02, 2023 Assessment & Plan (1) Small bowel obstruction: I discussed with the treating emergency room physician and the patient is being admitted on the hospitalist service. After my initial interview with the patient I extensively palpated the patient's left groin and the attempts to reduce the patient's left inguinal hernia noted on CT scan. I was unable to palpate any masses consistent with a left inguinal hernia and therefore was unable to reduce said hernia. I did discuss with the treating emergency room physician and the and he notes that he extensively pa lpated the patient's left groin and is unsure if he was able to reduce the hernia. We recommend the following measures: Implement n.p.o. status Provide IV fluid for hydration Follow serial labs Provide analgesics Provide antiemetics The treating emergency room physician has ordered an NG tube to be placed and I agree with this modality. This will remain in place until it is certain esther mckeon's hernia has been adequately reduced and she has return of bowel function at which time consideration be given to patient advancing patient's diet I discussed with the patient that I suspect she has a least a partial small bowel obstruction from this left inguinal hernia which will likely need to be addressed surgically with timing to be determined. At the present time she does have leukocytosis and a slight elevation of her creatinine. She is noted be normotensive without tachycardia and she is afebrile. Dr. Yoshi Hayes, my attending physician will evaluate the patient determine timing of any potential surgical intervention Further recommendations be based on Dr. Bolden's evaluation of the patient and her clinical course as it unfolds History of Present Illness Reason for Consultation: Small bowel obstruction secondary to left inguinal hernia History of Present Illness This is a 72-year-old female who presented to the emergency department at [facility] secondary to abdominal pain that is been present for approximately 8 hours. (She notes that it began around midnight on 06/02/2023). She describes the pain is primarily located in the lower abdomen with the most severe component in her left groin. She does not report any radiation of the pain. She denies any palliative or provocative factors to the pain. She has had associated nausea and vomiting on numerous occasions with her most recent episode of emesis approximately 1/2-hour prior to my visit (my visit with the patient was at approximately 7:30 AM on 06/02/2023). Patient says that she did have a bowel movement on 06/01/2023 but is not moved her bowels since her pain began. She also notes that she has not passed any flatus since her pain began. She denies any fevers, shakes, or chills. She notes that she has no prior history of abdominal surgeries other than a tubal ligation. She notes her most recent oral intake was at approximate 9:00 PM on 06/01/2023 The patient does report a history of having open heart surgery. 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 In addition the patient was noted to have a brain aneurysm that was subsequently clipped in September 2012. The patient notes her precipitating factors concerning this were headaches. Labs and imaging which I independent reviewed. Patient had a CT scan of the a bdomen pelvis. This identified a patient had a left inguinal hernia containing a segment of small bowel. The bowel upstream to this hernia was mildly distended and fluid-filled concerning for a partial small bowel obstruction. There is no pneumatosis intestinalis or portal venous gas. No intraperitoneal free air was noted. Labs include a CBC were white blood cell count was 21.2. Hemoglobin and hematocrit along with the platelet count were within normal range. Chemistry profile showed sodium and potassium are normal. The patient's BUN and creatinine were both slightly elevated at 30 and 1.2 respectively. Lactic acid level was nonelevated at 1.3. Total bilirubin was 1.1. At remaining LFTs and lipase were nonelevated. Urinalysis was not indicative of infection. At the time of my interview the patient was resting in bed. She did not appear to be in any distress. Allergies Allergy/AdvReac Type Severity Reaction Status Date / Time baclofen AdvReac Intermediate NAUSEA/VOMI Verified 03/18/23 01:07 TING lisinopril AdvReac Intermediate COUGH Verified 03/18/23 01:07 Home Medications Medication Instructions Recorded Confirmed Type amlodipine 5 mg tablet 5 mg PO QAM 10/01/18 03/18/23 History aspirin 81 mg tablet,delayed 81 mg PO QDD 10/01/18 03/18/23 History release atorvastatin 20 mg tablet 20 mg PO HS 10/01/18 03/18/23 History calcium carbonate 600 mg-vitamin 1 tab PO QAM 10/01/18 03/18/23 History D3 20 mcg (800 unit) chewable tablet (Caltrate 600 plus D) prednisone 5 mg tablet 5 mg PO QAM 10/01/18 03/18/23 History pantoprazole 40 mg tablet,delayed 40 mg PO DAILYBB 07/04/21 03/18/23 History release (Protonix) Lactobacil.acidophilus-Bifido.animalis 1 cap PO BID 03/18/23 03/18/23 History 5 billion cell sprinkle capsule (Probiotic) acetaminophen 325 mg tablet 650 mg PO DIRECTED PRN 03/18/23 03/18/23 History (Tylenol) FEVER/PAIN ektsqwqnnc-vezckslgezvtk-qnvprkqo 1 tab PO Q4H PRN HEADACHES 03/18/23 03/18/23 History 50 mg-325 mg-40 mg tablet duloxetine 20 mg capsule,delayed 20 mg PO QAM 03/18/23 03/18/23 History release ibuprofen 200 mg tablet 400 mg PO Q4H PRN PAIN/FEVER 03/18/23 03/18/23 History losartan 25 mg tablet 25 mg PO QAM 03/18/23 03/18/23 History ondansetron 4 mg disintegrating 4 mg PO Q6H PRN nausea and 03/18/23 Rx tablet vomiting #20 tabs Patient History Medical History (Updated 06/02/23 @ 07:46 by Jan Garrett PA-C) Ascending aorta dilation Mild dilatation of the proximal ascending aorta was noted with max of 3.[address] chest, stable compared to prior CT scan. 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[facility] [place] in May 2012 PMR (polymyalgia rheumatica) Splenic infarct Surgical History H/O aortic valve repair H/O atrial septal defect repair History of cataract surgery History of tubal ligation S/P craniotomy Family History Mother Hypertension Breast cancer Colon cancer Father Hypertension Social History Smoking Status: Former smoker Tobacco Type: Cigarettes Cigarettes Per Day: 30; Hx Alcohol Use: No Hx Substance Use: No Preferred Language: Peruvian Communication Ability: Effective Cancer Program Director Required: No Beliefs That Will Affect Care: None Current Living Situation: Spouse Feels Safe at Home: Yes Assistive Devices: None Review of Systems Constitutional: no fever and no chills Ear, Nose, Mouth, Throat: no hearing loss Respiratory: no cough and no dyspnea Cardiovascular: no chest pain Gastrointestinal: as per Subjective / HPI, + abdominal pain, + nausea and + vomiting Genitourinary: no dysuria Musculoskeletal: no back pain Integumentary: no rash Neurologic: no localized weakness Physical Exam Constitutional: WD/WN, vitals as above Eyes: no conjunctival abnormality ENMT: Ears: no hearing impairment and no external ear abnormality Mouth: no oropharynx abnormality Neck: trachea midline Respiratory: normal respiratory effort; no respiratory distress and no labored breathing Cardiovascular: Rate/Rhythm: regular rate and regular rhythm Gastrointestinal (Abdomen): Abdomen is soft and nonrigid. It is nondistended. There is no rebound tenderness or guarding. Patient did have some minor generalized pain with palpation. I did not appreciate any hernias on the right groin. I also extensively palpated the patient's left groin and was unable to palpate any hernias. Musculoskeletal: No calf tenderness Skin: no rashes Neurologic: moves all extremities Psychiatric: A+Ox3, euthymic affect Results & Data Vital Signs (Past 12 Hours) Vital Signs Temp Pulse Pulse Resp BP BP Pulse Ox 06/02/23 06:42 88 L 06/02/23 05:31 78 06/02/23 05:27 79 15 151/82 H 96 06/02/23 04:11 36.9 C 77 20 118/84 96 O2 Del Method O2 Flow Rate 06/02/23 06:42 Room Air, Nasal Cannula 0 06/02/23 05:31 06/02/23 05:27 Room Air 06/02/23 04:11 Room Air PG Care Time/CCT Total # of Minutes Spent Total Time Spent with Patient: Total time spent is greater than 50% in coordination of care (as documented) at patient's floor/unit and/or counseling patient: Coding Level of Care Code 45047 INT INP/OBS CARE MIN Diagnoses Small bowel obstruction K56.609
--- NOTE | 2023-06-02 09:10 | XRay Report ---
KUB CLINICAL HISTORY: Enteric tube placement. FINDINGS: An AP, portable, supine abdominal radiograph is correlated with abdominal CT performed the same day 06/02/2023. An enteric tube has been placed. The tip projects below the diaphragm over the mid stomach. There are mildly distended and gas-filled loops of proximal small bowel which measure up to 3.2 cm. No evidence of intraperitoneal free air is seen on this supine image. There are no abnormal abdominal calcifications. Excreted IV contrast is seen within the renal collecting systems and bladde r. The skeletal structures are osteopenic and appear intact. There is moderate lumbosacral spondylosi s. Midline sternotomy wires are noted. IMPRESSION: 1. An enteric tube has been placed as above. 2. There is mild gaseous distention of the small bowel loops suggesting persistent obstruction. Electronically signed by: Jl Bloom M.D. 06/02/2023 9:09 AM
[2023-06-02] MEDS ORDERED: HYDROCORTISONE SOD SUCCINATE 100 MG/2 ML VIAL IV STA (12:13)
[2023-06-02] MEDS: NSS + 20MEQ KCL 20 MEQ/1,000 ML BAG IV SCH (12:54)
[2023-06-02] MEDS ORDERED: ACETAMINOPHEN 1,000 MG/100 ML VIAL IV SCH (13:00)
[2023-06-02] MEDS: PANTOprazole 40 MG in SYRINGE 0 ML IV SCH (13:23)
--- NOTE | 2023-06-02 14:23 | History & Physical Report ---
Date of Service June 02, 2023 Assessment & Plan (1) Small bowel obstruction: Plan: Patient presents to the hospital with lower left-sided abdominal pain since last 8 hours along with nausea and vomiting. Labs remarkable for elevated WBC count of 21,000. Creatinine elevated to 1.22; similar to her baseline. Lactate within normal limits. Liver enzymes are within normal limits. CT abdomen pelvis personally reviewed; loop of small bowel contained within left inguinal hernia. ED doctor attempted reduction; patient reports improvement of pain since then Surgery consulted for comanagement. NG tube placed as per recommendation. On IV normal saline with potassium. On Zofran as needed for nausea/vomiting. On IV/Tylenol as needed for pain Other conditions; Polymyalgia rheumatica on chronic prednisone: Has been on prednisone for many years. On hydrocortisone while patient is n.p.o. Will need to stress dose steroids prior to surgery. Hypertension- amlodipine on hold. Continue to monitor for now. Mood disorderoral duloxetine on hold. Resume when able to take oral meds. Nonobstructive CADon aspirin and Lipitor. Currently on hold. Hyperlipidemiaon Lipitor. Currently on hold; resume when able to take oral. GERDon Protonix; changed to IV. Time spent evaluating patient, direct bedside care, chart review, placing orders, interpretation of diagnostic studies, discussion with consultants, patient, and family members, as well as other required patient management activities is 75 minutes. Please note the above document was generated using voice recognition software. It may contain grammatical, syntax or spelling errors. Any formal questions or concerns about the content, text or information contained within the body of this dictation should be directly addressed to the provider for clarification Admission and Anticipated Discharge Date Admission Date: June 02, 2023 History of Present Illness Chief Complaint: Lower abdominal pain for 8 hours Primary Care Provider: Francisco Carreon MD History obtained from interview the patient and chart review. Past medical history of hypertension, hyperlipidemia, paroxysmal A-fib, PMR on chronic steroid, depression, CKD stage III, GERD, CVA Patient presents to the hospital with lower left-sided abdominal pain since midnight. Patient also reports multiple episode of vomiting containing food particle since then. No blood was seen. Patient's last bowel movement was yesterday afternoon. Patient denies fever, chills, chest pain or urinary symptoms. Patient abdominal pain had resolved when patient was being interviewed. In the ED, patient was normotensive, afebrile and saturating well on room air. Labs remarkable for elevated WBC count of 21,000. Creatinine elevated to 1.22; similar to her baseline. Liver enzymes are within normal limits. CT abdomen pelvis personally reviewed; loop of small bowel contained within left inguinal hernia. ED doctor attempted reduction; patient reports improvement of pain since then Past medical history; as above. 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 No history of alcohol use disorder. Family history; mother with hypertension, colon cancer. Father with hypertension. Allergies Allergy/AdvReac Type Severity Reaction Status Date / Time baclofen AdvReac Intermediate NAUSEA/VOMI Verified 03/18/23 01:07 TING lisinopril AdvReac Intermediate COUGH Verified 03/18/23 01:07 Home Medications Medication Instructions Recorded Confirmed Type amlodipine 5 mg tablet 5 mg PO QAM 10/01/18 06/02/23 History aspirin 81 mg tablet,delayed 81 mg PO PM 10/01/18 06/02/23 History release atorvastatin 20 mg tablet 20 mg PO HS 10/01/18 06/02/23 History calcium carbonate 600 mg-vitamin 1 tab PO QAM 10/01/18 06/02/23 History D3 20 mcg (800 unit) chewable tablet (Caltrate 600 plus D) prednisone 5 mg tablet 5 mg PO QAM 10/01/18 06/02/23 History pantoprazole 40 mg tablet,delayed 40 mg PO DAILYBB 07/04/21 06/02/23 History release (Protonix) Lactobacil.acidophilus-Bifido.animalis 1 cap PO BID 03/18/23 06/02/23 History 5 billion cell sprinkle capsule (Probiotic) acetaminophen 325 mg tablet 650 mg PO DIRECTED PRN 03/18/23 06/02/23 History (Tylenol) FEVER/PAIN duloxetine 20 mg capsule,delayed 20 mg PO QAM 03/18/23 06/02/23 History release ibuprofen 200 mg tablet 400 mg PO Q4H PRN PAIN/FEVER 03/18/23 06/02/23 History Past Med/Surg History Medical History (Updated 06/02/23 @ 07:46 by Jan Garrett PA-C) Ascending aorta dilation Mild dilatation of the proximal ascending aorta was noted with max of 3.[address] chest, stable compared to prior CT scan. 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 [facility] in May 2012 PMR (polymyalgia rheumatica) Splenic infarct Surgical History H/O aortic valve repair H/O atrial septal defect repair History of cataract surgery History of tubal ligation S/P craniotomy Family History Mother Hypertension Breast cancer Colon cancer Father Hypertension Social History Smoking Status: Former smoker Tobacco Type: Cigarettes Cigarettes Per Day: 30; Hx Alcohol Use: No Hx Substance Use: No Preferred Language: Belarusian Communication Ability: Effective Grinding Room Supervisor Required: No Beliefs That Will Affect Care: None Current Living Situation: Spouse Feels Safe at Home: Yes Assistive Devices: None Review of Systems Review of Systems: All systems reviewed & are unremarkable except as noted in Subjective Physical Exam Physical Exam: Constitutional: Alert orient x3; not in distress. Respiratory: normal respiratory effort, lungs clear to auscultation, no wheeze, rales, rhonchi. Normal insp/exp effort, no accessory muscle use Cardiovascular: RRR, no murmur, no edema Vessels: no JVD or carotid bruit Chest: normal inspection of chest Abdomen: Soft, nontender. Inguinal hernia not appreciated. Musculoskeletal: no cyanosis or clubbing, extremities motor strength 5/5 Skin: no rashes, warm and dry normal turgor Neurologic: PERRL, EOMI, accommodation nl, no face palsy, no dysarthria CN's II- XI intact bilaterally and moves all extremities Psychiatric: A+Ox3, euthymic affect Results & Data Results & Data Vital Signs (Past 12 Hours) Vital Signs Temp Pulse Pulse Resp BP BP Pulse Ox 06/02/23 13:30 06/02/23 14:00 54 L 12 98 06/02/23 14:00 122/60 06/02/23 13:30 53 L 11 L 98 06/02/23 13:01 113/71 06/02/23 13:01 55 L 17 99 06/02/23 13:00 56 L 17 98 06/02/23 12:30 57 L 14 98 06/02/23 12:30 130/73 06/02/23 12:00 57 L 10 L 99 06/02/23 12:00 121/67 06/02/23 11:30 58 L 12 99 06/02/23 11:30 123/71 06/02/23 11:00 62 12 98 06/02/23 11:00 126/66 06/02/23 10:30 60 14 98 06/02/23 10:30 139/75 06/02/23 10:00 69 17 98 06/02/23 10:00 138/88 06/02/23 09:42 66 06/02/23 09:30 66 16 96 06/02/23 09:30 128/70 06/02/23 09:00 67 16 06/02/23 09:00 130/65 06/02/23 08:30 67 15 06/02/23 08:30 127/75 06/02/23 08:00 69 15 97 06/02/23 08:00 135/63 06/02/23 07:30 71 15 97 06/02/23 07:30 131/61 06/02/23 07:00 71 10 L 96 06/02/23 07:00 113/68 06/02/23 06:42 88 L 06/02/23 05:31 78 06/02/23 05:27 79 15 151/82 H 96 06/02/23 04:11 36.9 C 77 20 118/84 96 Pulse Ox O2 Del Method O2 Del Method O2 Flow Rate O2 Flow Rate 06/02/23 13:30 96 Nasal Cannula 2 06/02/23 14:00 Room Air 06/02/23 14:00 06/02/23 13:30 Room Air 06/02/23 13:01 06/02/23 13:01 Nasal Cannula 2 06/02/23 13:00 Nasal Cannula 2 06/02/23 12:30 Nasal Cannula 2 06/02/23 12:30 06/02/23 12:00 Nasal Cannula 2 06/02/23 12:00 06/02/23 11:30 Nasal Cannula 2 06/02/23 11:30 06/02/23 11:00 Nasal Cannula 2 06/02/23 11:00 06/02/23 10:30 Nasal Cannula 2 06/02/23 10:30 06/02/23 10:00 Nasal Cannula 2 06/02/23 10:00 06/02/23 09:42 06/02/23 09:30 Nasal Cannula 2 06/02/23 09:30 06/02/23 09:00 06/02/23 09:00 06/02/23 08:30 06/02/23 08:30 06/02/23 08:00 2 06/02/23 08:00 06/02/23 07:30 Nasal Cannula 2 06/02/23 07:30 06/02/23 07:00 Nasal Cannula 2 06/02/23 07:00 06/02/23 06:42 Room Air, Nasal Cannula 0 06/02/23 05:31 06/02/23 05:27 Room Air 06/02/23 04:11 Room Air Laboratory Results Laboratory Results WBC 21.29 K/ul (4.8-10.8) H 06/02/23 04:48 RBC 4.70 M/uL (4.20-5.40) 06/02/23 04:48 Hgb 14.2 g/dl (12.0-16.0) 06/02/23 04:48 POC Hgb 15.0 g/dl (12.0-16.0) 06/02/23 04:54 Hct 43.5 % (37.0-47.0) 06/02/23 04:48 POC Hct 44 % (37-47) 06/02/23 04:54 MCV 92.6 fL (80.0-100.0) 06/02/23 04:48 MCH 30.2 pg (25.0-34.0) 06/02/23 04:48 MCHC 32.6 g/dL (32.0-36.0) 06/02/23 04:48 RDW Std Deviation 42.6 fL (36.4-46.3) 06/02/23 04:48 RDW Coeff of Sandor 12.4 % (11.5-14.5) 06/02/23 04:48 Plt Count 225 K/uL (130-400) 06/02/23 04:48 MPV 10.8 fL (9.4-12.4) 06/02/23 04:48 Immature Gran % (Auto) 0.5 % 06/02/23 04:48 Neut % (Auto) 83.8 % 06/02/23 04:48 Lymph % (Auto) 8.4 % 06/02/23 04:48 Hardin % (Auto) 6.6 % 06/02/23 04:48 Eos % (Auto) 0.4 % 06/02/23 04:48 Baso % (Auto) 0.3 % 06/02/23 04:48 Neut # (Auto) 17.84 K/uL (1.40-6.50) H 06/02/23 04:48 Lymph # (Auto) 1.79 K/uL (1.20-3.40) 06/02/23 04:48 Hardin # (Auto) 1.40 K/uL (0.11-0.59) H 06/02/23 04:48 Eos # (Auto) 0.09 K/uL (0.00-0.50) 06/02/23 04:48 Baso # (Auto) 0.06 K/uL (0.00-0.20) 06/02/23 04:48 Immature Gran # (Auto) 0.11 K/uL (0.01-0.20) 06/02/23 04:48 POC Sodium 141 mmol/L (135-144) 06/02/23 04:54 Sodium 139 mmol/L (136-145) 06/02/23 04:48 POC Potassium 4.0 mmol/L (3.3-5.0) 06/02/23 04:54 Potassium 4.1 mmol/L (3.5-5.1) 06/02/23 04:48 POC Chloride 104 mmol/L (101-112) 06/02/23 04:54 Chloride 105 mmol/L (98-107) 06/02/23 04:48 Carbon Dioxide 27 mmol/L (21-32) 06/02/23 04:48 POC Total CO2 26 mmol/L (24-31) 06/02/23 04:54 Anion Gap 7 (3-11) 06/02/23 04:48 POC Anion Gap 15.0 mmol/L (16-25) L 06/02/23 04:54 POC BUN 30 mg/dl (7-18) H 06/02/23 04:54 BUN 30 mg/dl (6-23) H 06/02/23 04:48 Creatinine 1.22 mg/dl (0.6-1.2) H 06/02/23 04:48 POC Creatinine 1.3 mg/dl (0.6-1.3) 06/02/23 04:54 Est Cr Clr Drug Dosing Not Reportable 06/02/23 04:48 Est GFR ( Amer) 50.5 ml/min 06/02/23 04:48 Est GFR (Non-Af Amer) 43.6 ml/min 06/02/23 04:48 BUN/Creatinine Ratio 24.6 (10-20) H 06/02/23 04:48 Glucose 84 mg/dl (70-99(Fasting)) 06/02/23 04:48 POC Glucose (other) 85 mg/dl (70-99) 06/02/23 04:54 Lactate 1.3 mmol/L (0.4-2.0) 06/02/23 04:48 Calcium 9.0 mg/dl (8.6-10.3) 06/02/23 04:48 POC Ioniz Calcium Apolinar 1.08 mmol/l (1.12-1.32) L 06/02/23 04:54 Magnesium 1.9 mg/dl (1.7-2.4) 06/02/23 04:48 Total Bilirubin 1.1 mg/dl (0.2-1.0) H 06/02/23 04:48 Direct Bilirubin TNP 06/02/23 04:48 AST 23 U/L (13-39) 06/02/23 04:48 ALT 12 U/L (7-52) 06/02/23 04:48 Alkaline Phosphatase 62 U/L (34-104) 06/02/23 04:48 Troponin I High Sens 7.5 pg/ml (0-14) 06/02/23 04:48 Total Protein 7.0 gm/dl (6.0-8.3) 06/02/23 04:48 Albumin 4.2 gm/dl (3.4-5.0) 06/02/23 04:48 Lipase 22 U/L (11-82) 06/02/23 04:48 Urine Color Yellow 06/02/23 Unknown Urine Appearance Clear (Clear) 06/02/23 Unknown Urine pH 7.5 (4.5-7.5) 06/02/23 Unknown Ur Specific [place] 1.025 (1.000-1.030) 06/02/23 Unknown Urine Protein Negative (Negative) 06/02/23 Unknown Urine Glucose (UA) Negative (Negative) 06/02/23 Unknown Urine Ketones Negative (Negative) 06/02/23 Unknown Urine Blood 1+ (Negative) H 06/02/23 Unknown Urine Nitrite Negative (Negative) 06/02/23 Unknown Urine Bilirubin Negative (Negative) 06/02/23 Unknown Urine Urobilinogen Negative (Negative) 06/02/23 Unknown Ur Leukocyte Esterase Negative (Negative) 06/02/23 Unknown Urine WBC (Auto) 0 /hpf (0-5) 06/02/23 Unknown Urine RBC (Auto) 5-10 /hpf (0-4) H 06/02/23 Unknown U Hyaline Cast (Auto) 0 /lpf (0-5) 06/02/23 Unknown U Epithel Cells (Auto) 0-5 /lpf (0-5) 06/02/23 Unknown Urine Bacteria (Auto) Negative (Negative) 06/02/23 Unknown Impressions Abdomen/Pelvis CT 06/02/23 04:32 CT SCAN OF THE ABDOMEN AND PELVIS WITH IV CONTRAST CLINICAL HISTORY: Generalized abdominal pain. Nausea. COMPARISON STUDY: Abdominal CT dated 03/18/2023. TECHNIQUE: Following the IV administration of 92 cc of Optiray 320, CT scan of the abdomen and pelvis is performed from the lung bases to the proximal femora. Images are reviewed in the axial, sagittal, and coronal planes. IV contrast was administered without complication. A dose lowering technique was utilized adhering to the principles of ALARA. CT DOSE: 1365.85 mGy.cm FINDINGS: Lung bases: The patient is status post midline sternotomy. Epicardial leads are in place. The heart is normal in size and without pericardial effusion. The coronary arteries are densely calcified. The lung bases are clear noting dependent atelectasis. Liver: The contrast-enhanced liver is normal in size, contour, and attenuation. There is no intrahepatic biliary ductal dilatation. The hepatic veins and portal veins are patent. Gallbladder: Unremarkable. Spleen: Normal in size and attenuation. Pancreas: The pancreas is mildly atrophic.. Adrenal glands: Unremarkable. Kidneys: The contrast enhanced kidneys are normal in size and without hydronephrosis. The kidneys enhance symmetrically. Abdominal vasculature: The abdominal aorta is normal in course and caliber noting advanced atherosclerotic calcification. Bowel: There is a left inguinal hernia which contains a segment of small bowel. The upstream small bowel is mildly distended and fluid-filled. The distal small bowel is decompressed, and this contributes to at least partial small bowel obstruction. No focally thick-walled bowel loops are identified. There is no pneumatosis intestinalis or portal venous gas. Liquid stool is noted in the right colon. Moderate fecal retention is seen in the left colon. The appendix is well-visualized and normal. Peritoneum: There is no intraperitoneal free air or abdominal ascites. There is a small fat-containing umbilical hernia. Lymphadenopathy: None. Pelvic viscera: The bladder, uterus, and adnexa are normal as visualized. There is a small bowel containing left inguinal hernia. See above. Skeletal structures: The skeletal structures are osteopenic. There is mild to moderate lumbosacral spondylosis. Grade 1 anterolisthesis is noted at L4-L5. No lytic or blastic lesions are seen. IMPRESSION: 1. There is a loop of small bowel contained within a left inguinal hernia. The upstream small bowel is mildly distended and fluid-filled, and the distal small bowel is decompressed. This likely represents a partial small bowel obstruction. 2. No intraperitoneal free air is seen. No thick walled bowel loops are identified and there is no pneumatosis intestinalis or portal venous gas. 3. Additional findings as above. ACT 112: Negative or not required by law. Electronically signed by: Jl Bloom M.D. 06/02/2023 7:13 AM KUB X-Ray 06/02/23 08:45 KUB CLINICAL HISTORY: Enteric tube placement. FINDINGS: An AP, portable, supine abdominal radiograph is correlated with abdominal CT performed the same day 06/02/2023. An enteric tube has been placed. The tip projects below the diaphragm over the mid stomach. There are mildly distended and gas-filled loops of proximal small bowel which measure up to 3.2 cm. No evidence of intraperitoneal free air is seen on this supine image. There are no abnormal abdominal calcifications. Excreted IV contrast is seen within the renal collecting systems and bladder. The skeletal structures are osteopenic and appear intact. There is moderate lumbosacral spondylosis. Midline sternotomy wires are noted. IMPRESSION: 1. An enteric tube has been placed as above. 2. There is mild gaseous distention of the small bowel loops suggesting persistent obstruction. Electronically signed by: Jl Bloom M.D. 06/02/2023 9:09 AM
[2023-06-02] MEDS: ACETAMINOPHEN 1,000 MG/100 ML VIAL IV PRN (19:20)
[2023-06-03] MEDS: HYDROmorphone INJ 0.5 MG/0.5 ML SYR IV PRN ×5 (01:45→20:56)
[2023-06-03] MEDS ORDERED: CHLORASEPTIC 1.4% SOLN 180 ML BTL MT PRN (01:49)
[2023-06-03] MEDS ORDERED: FAMOTIDINE 20 MG in SYRINGE 3 ML IV STA (04:58)
[2023-06-03] MEDS: NSS + 20MEQ KCL 20 MEQ/1,000 ML BAG IV SCH (05:22)
[2023-06-03 06:35] LABS: Basophils # (auto) 0.03 K/uL (0.00-0.20); Basophils % (auto) 0.2 %; Eosinophils # (auto) 0.15 K/uL (0.00-0.50); Eosinophils % (auto) 1.2 %; Hematocrit (blood only) 39.7 % (37.0-47.0); Immature Granulocytes # (auto) 0.04 K/uL (0.01-0.20); Immature Granulocytes % (auto) 0.3 %; Lymphocytes % (auto) 22.6 %; Mean Corpuscular Hemoglobin 30.5 pg (25.0-34.0); Mean Corpuscular Hgb Conc 32.7 g/dL (32.0-36.0); Mean Corpuscular Volume 93.2 fL (80.0-100.0); Mean Platelet Volume 11.2 fL (9.4-12.4); Monocytes # (auto) 0.96 K/uL (0.11-0.59); Monocytes % (auto) 7.8 %; Neutrophils # (auto) 8.39 K/uL (1.40-6.50); Neutrophils % (auto) 67.9 %; Platelet Count 205 K/uL (130-400); RDW Coefficient of Variation 12.8 % (11.5-14.5); RDW Standard Deviation 43.9 fL (36.4-46.3); Red Blood Count 4.26 M/uL (4.20-5.40); White Blood Count 12.37 K/ul (4.8-10.8)
[2023-06-03 07:13] LABS: Albumin Globulin Ratio 1.5 (0.9-2); Albumin Level 3.6 gm/dl (3.4-5.0); BUN Creatinine Ratio 20.5 (10-20); Bilirubin,Total 1.9 mg/dl (0.2-1.0); Calcium 8.1 mg/dl (8.6-10.3); Creatinine Clr Calc Pharmacy 71.1 ml/min; Est GFR (African American) 86.8 ml/min; Est GFR (Non-African American) 74.9 ml/min; Globulin 2.4 gm/dl (2.5-4.0); Potassium 3.7 mmol/L (3.5-5.1)
[2023-06-03] MEDS: HYDROCORTISONE SOD 50 MG in SYRINGE 0 ML IV SCH (07:55)
[2023-06-03] MEDS: PANTOprazole 40 MG in SYRINGE 0 ML IV SCH (07:55)
--- NOTE | 2023-06-03 12:07 | Hospitalist Progress Note ---
Date of Service June 03, 2023 Assessment & Plan (1) Small bowel obstruction: (2) Left inguinal hernia: Plan: Patient presents to the hospital with lower left-sided abdominal pain since last 8 hours along with nausea and vomiting. Leukocytosis present on admission; improved. Creatinine elevated to 1.22 on admission; improved. Lactate within normal limits. Liver enzymes are within normal limits. CT abdomen pelvis personally reviewed; loop of small bowel contained within left inguinal hernia. ED doctor attempted reduction; patient reports improvement of pain since then Discussed with surgery; most likely will remove the NG tube today. Left inguinal hernia surgery possibly this admission. Supportive care with IV fluids, IV analgesics and antiemetics. Other conditions; Polymyalgia rheumatica on chronic prednisone: Has been on prednisone for many years. On hydrocortisone while patient is n.p.o. Will need to stress dose steroids prior to surgery. Hypertension- amlodipine on hold. Continue to monitor for now. Mood disorderoral duloxetine on hold. Resume when able to take oral meds. Nonobstructive CADon aspirin and Lipitor. Currently on hold. Hyperlipidemiaon Lipitor. Currently on hold; resume when able to take oral. GERDon Protonix; changed to IV. Time spent evaluating patient, direct bedside care, chart review, placing orders, interpretation of diagnostic studies, discussion with consultants, patient, and family members, as well as other required patient management activities is 75 minutes. Please note the above document was generated using voice recognition software. It may contain grammatical, syntax or spelling errors. Any formal questions or concerns about the content, text or information contained within the body of this dictation should be directly addressed to the provider for clarification Admission and Anticipated Discharge Date Admission Date: June 02, 2023 Subjective Patient seen and examined at bedside. She reports pain and difficulty due to the NG tube. As per RN; minimal output from the NG tube overnight. Patient reports no bowel movement. Review of Systems Review of Systems: All systems reviewed & are unremarkable except as noted in Subjective Physical Exam Physical Exam: Constitutional: Alert orient x3; appears to be in mild distress. NG tube in place Respiratory: normal respiratory effort, lungs clear to auscultation, no wheeze, rales, rhonchi. Normal insp/exp effort, no accessory muscle use Cardiovascular: RRR, no murmur, no edema Vessels: no JVD or carotid bruit Chest: normal inspection of chest Abdomen: Soft, nontender. Inguinal hernia not appreciated. Bowel sound hypoactive. Musculoskeletal: no cyanosis or clubbing, extremities motor strength 5/5 Skin: no rashes, warm and dry normal turgor Neurologic: PERRL, EOMI, accommodation nl, no face palsy, no dysarthria CN's II- XI intact bilaterally and moves all extremities Psychiatric: A+Ox3, euthymic affect Results & Data Results & Data Vital Signs (Past 12 Hours) Vital Signs Temp Pulse Pulse Resp BP BP Pulse Ox 06/03/23 08:37 36.7 C 91 H 18 157/72 H 91 06/03/23 07:03 60 06/03/23 02:59 36.4 C L 54 L 18 138/73 91 O2 Del Method 06/03/23 08:37 Room Air 06/03/23 07:03 06/03/23 02:59 Room Air Laboratory Results Laboratory Results WBC 12.37 K/ul (4.8-10.8) H 06/03/23 05:46 RBC 4.26 M/uL (4.20-5.40) 06/03/23 05:46 Hgb 13.0 g/dl (12.0-16.0) 06/03/23 05:46 POC Hgb 15.0 g/dl (12.0-16.0) 06/02/23 04:54 Hct 39.7 % (37.0-47.0) 06/03/23 05:46 POC Hct 44 % (37-47) 06/02/23 04:54 MCV 93.2 fL (80.0-100.0) 06/03/23 05:46 MCH 30.5 pg (25.0-34.0) 06/03/23 05:46 MCHC 32.7 g/dL (32.0-36.0) 06/03/23 05:46 RDW Std Deviation 43.9 fL (36.4-46.3) 06/03/23 05:46 RDW Coeff of Sandor 12.8 % (11.5-14.5) 06/03/23 05:46 Plt Count 205 K/uL (130-400) 06/03/23 05:46 MPV 11.2 fL (9.4-12.4) 06/03/23 05:46 Immature Gran % (Auto) 0.3 % 06/03/23 05:46 Neut % (Auto) 67.9 % 06/03/23 05:46 Lymph % (Auto) 22.6 % 06/03/23 05:46 [place] % (Auto) 7.8 % 06/03/23 05:46 Eos % (Auto) 1.2 % 06/03/23 05:46 Baso % (Auto) 0.2 % 06/03/23 05:46 Neut # (Auto) 8.39 K/uL (1.40-6.50) H 06/03/23 05:46 Lymph # (Auto) 2.80 K/uL (1.20-3.40) 06/03/23 05:46 [place] # (Auto) 0.96 K/uL (0.11-0.59) H 06/03/23 05:46 Eos # (Auto) 0.15 K/uL (0.00-0.50) 06/03/23 05:46 Baso # (Auto) 0.03 K/uL (0.00-0.20) 06/03/23 05:46 Immature Gran # (Auto) 0.04 K/uL (0.01-0.20) 06/03/23 05:46 POC Sodium 141 mmol/L (135-144) 06/02/23 04:54 Sodium 139 mmol/L (136-145) 06/03/23 05:46 POC Potassium 4.0 mmol/L (3.3-5.0) 06/02/23 04:54 Potassium 3.7 mmol/L (3.5-5.1) 06/03/23 05:46 POC Chloride 104 mmol/L (101-112) 06/02/23 04:54 Chloride 109 mmol/L (98-107) H 06/03/23 05:46 Carbon Dioxide 26 mmol/L (21-32) 06/03/23 05:46 POC Total CO2 26 mmol/L (24-31) 06/02/23 04:54 Anion Gap 4 (3-11) 06/03/23 05:46 POC Anion Gap 15.0 mmol/L (16-25) L 06/02/23 04:54 POC BUN 30 mg/dl (7-18) H 06/02/23 04:54 BUN 16 mg/dl (6-23) 06/03/23 05:46 Creatinine 0.78 mg/dl (0.6-1.2) D 06/03/23 05:46 POC Creatinine 1.3 mg/dl (0.6-1.3) 06/02/23 04:54 Est Cr Clr Drug Dosing 71.1 ml/min 06/03/23 05:46 Est GFR ( Amer) 86.8 ml/min 06/03/23 05:46 Est GFR (Non-Af Amer) 74.9 ml/min 06/03/23 05:46 BUN/Creatinine Ratio 20.5 (10-20) H 06/03/23 05:46 Glucose 68 mg/dl (70-99(Fasting)) L 06/03/23 05:46 POC Glucose (other) 85 mg/dl (70-99) 06/02/23 04:54 Lactate 1.3 mmol/L (0.4-2.0) 06/02/23 04:48 Calcium 8.1 mg/dl (8.6-10.3) L 06/03/23 05:46 POC Ioniz Calcium Apolinar 1.08 mmol/l (1.12-1.32) L 06/02/23 04:54 Magnesium 1.9 mg/dl (1.7-2.4) 06/02/23 04:48 Total Bilirubin 1.9 mg/dl (0.2-1.0) H D 06/03/23 05:46 Direct Bilirubin TNP 06/02/23 04:48 AST 15 U/L (13-39) 06/03/23 05:46 ALT 9 U/L (7-52) 06/03/23 05:46 Alkaline Phosphatase 47 U/L (34-104) 06/03/23 05:46 Troponin I High Sens 7.5 pg/ml (0-14) 06/02/23 04:48 Total Protein 6.0 gm/dl (6.0-8.3) 06/03/23 05:46 Albumin 3.6 gm/dl (3.4-5.0) 06/03/23 05:46 Globulin 2.4 gm/dl (2.5-4.0) L 06/03/23 05:46 Albumin/Globulin Ratio 1.5 (0.9-2) 06/03/23 05:46 Lipase 22 U/L (11-82) 06/02/23 04:48 Urine Color Yellow 06/02/23 Unknown Urine Appearance Clear (Clear) 06/02/23 Unknown Urine pH 7.5 (4.5-7.5) 06/02/23 Unknown Ur Specific [place] 1.025 (1.000-1.030) 06/02/23 Unknown Urine Protein Negative (Negative) 06/02/23 Unknown Urine Glucose (UA) Negative (Negative) 06/02/23 Unknown Urine Ketones Negative (Negative) 06/02/23 Unknown Urine Blood 1+ (Negative) H 06/02/23 Unknown Urine Nitrite Negative (Negative) 06/02/23 Unknown Urine Bilirubin Negative (Negative) 06/02/23 Unknown Urine Urobilinogen Negative (Negative) 06/02/23 Unknown Ur Leukocyte Esterase Negative (Negative) 06/02/23 Unknown Urine WBC (Auto) 0 /hpf (0-5) 06/02/23 Unknown Urine RBC (Auto) 5-10 /hpf (0-4) H 06/02/23 Unknown U Hyaline Cast (Auto) 0 /lpf (0-5) 06/02/23 Unknown U Epithel Cells (Auto) 0-5 /lpf (0-5) 06/02/23 Unknown Urine Bacteria (Auto) Negative (Negative) 06/02/23 Unknown Impressions Abdomen/Pelvis CT 06/02/23 04:32 CT SCAN OF THE ABDOMEN AND PELVIS WITH IV CONTRAST CLINICAL HISTORY: Generalized abdominal pain. Nausea. COMPARISON STUDY: Abdominal CT dated 03/18/2023. TECHNIQUE: Following the IV administration of 92 cc of Optiray 320, CT scan of the abdomen and pelvis is performed from the lung bases to the proximal femora. Images are reviewed in the axial, sagittal, and coronal planes. IV contrast was administered without complication. A dose lowering technique was utilized adhering to the principles of ALARA. CT DOSE: 1365.85 mGy.cm FINDINGS: Lung bases: The patient is status post midline sternotomy. Epicardial leads are in place. The heart is normal in size and without pericardial effusion. The coronary arteries are densely calcified. The lung bases are clear noting dependent atelectasis. Liver: The contrast-enhanced liver is normal in size, contour, and attenuation. There is no intrahepatic biliary ductal dilatation. The hepatic veins and portal veins are patent. Gallbladder: Unremarkable. Spleen: Normal in size and attenuation. Pancreas: The pancreas is mildly atrophic.. Adrenal glands: Unremarkable. Kidneys: The contrast enhanced kidneys are normal in size and without hydronephrosis. The kidneys enhance symmetrically. Abdominal vasculature: The abdominal aorta is normal in course and caliber noting advanced atherosclerotic calcification. Bowel: There is a left inguinal hernia which contains a segment of small bowel. The upstream small bowel is mildly distended and fluid-filled. The distal small bowel is decompressed, and this contributes to at least partial small bowel obstruction. No focally thick-walled bowel loops are identified. There is no pneumatosis intestinalis or portal venous gas. Liquid stool is noted in the right colon. Moderate fecal retention is seen in the left colon. The appendix is well-visualized and normal. Peritoneum: There is no intraperitoneal free air or abdominal ascites. There is a small fat-containing umbilical hernia. Lymphadenopathy: None. Pelvic viscera: The bladder, uterus, and adnexa are normal as visualized. There is a small bowel containing left inguinal hernia. See above. Skeletal structures: The skeletal structures are osteopenic. There is mild to moderate lumbosacral spondylosis. Grade 1 anterolisthesis is noted at L4-L5. No lytic or blastic lesions are seen. IMPRESSION: 1. There is a loop of small bowel contained within a left inguinal hernia. The upstream small bowel is mildly distended and fluid-filled, and the distal small bowel is decompressed. This likely represents a partial small bowel obstruction. 2. No intraperitoneal free air is seen. No thick walled bowel loops are identified and there is no pneumatosis intestinalis or portal venous gas. 3. Additional findings as above. ACT 112: Negative or not required by law. Electronically signed by: Jl Bloom M.D. 06/02/2023 7:13 AM KUB X-Ray 06/02/23 08:45 KUB CLINICAL HISTORY: Enteric tube placement. FINDINGS: An AP, portable, supine abdominal radiograph is correlated with abdominal CT performed the same day 06/02/2023. An enteric tube has been placed. The tip projects below the diaphragm over the mid stomach. There are mildly distended and gas-filled loops of proximal small bowel which measure up to 3.2 cm. No evidence of intraperitoneal free air is seen on this supine image. There are no abnormal abdominal calcifications. Excreted IV contrast is seen within the renal collecting systems and bladder. The skeletal structures are osteopenic and appear intact. There is moderate lumbosacral spondylosis. Midline sternotomy wires are noted. IMPRESSION: 1. An enteric tube has been placed as above. 2. There is mild gaseous distention of the small bowel loops suggesting persistent obstruction. Electronically signed by: Jl Bloom M.D. 06/02/2023 9:09 AM
--- NOTE | 2023-06-03 14:04 | XRay Report ---
KUB HISTORY: NG tube placement. Small bowel obstruction. eval bowel/gas pattern COMPARISON: KUB 06/02/2023. FINDINGS: Nasogastric tube terminates in the mid stomach. This remains unchanged. There are postopera tive changes again noted. Moderate fecal retention, unchanged. A few mildly dilated gas-filled loops of small bowel again noted within the abdomen. These measure up to 3.6 cm in diameter. No renal calc aris. No ureteral calculi. No pneumoperitoneum or pneumatosis. IMPRESSION: 1. Nasogastric tube terminates in the stomach. 2. Mild gaseous distention of the small bowel persists. This suggests persistent small bowel obstruct ion. 3. Moderate fecal retention. ACT 112: Negative or not required by law. Electronically signed by: William Chavis M.D. 06/03/2023 2:03 PM
--- NOTE | 2023-06-03 16:55 | Surgery Progress Note ---
Date of Service June 03, 2023 Assessment & Plan (1) Small bowel obstruction: (2) Left inguinal hernia: Plan continue NGT to low intermittent wall suction and NPO status for now. Will plan for OR tomorrow for LIH repair. Admission and Anticipated Discharge Date Admission Date: June 02, 2023 Subjective Patient seen and examined this am. Says she was feeling good until just recently after her NGT was removed from suction. Is unable to tell if she has nausea an says she is starting to have a small amount of abdominal discomfort return. No pain at the left groin or bulging. Physical Exam Constitutional: comfortable; no acute distress, not ill appearing and not diaphoretic Respiratory: normal respiratory effort; no respiratory distress, no labored breathing and does not use accessory muscles Gastrointestinal (Abdomen): Soft, nontender to palpation. No rebound or guarding Results & Data Vital Signs (Past 12 Hours) Vital Signs Temp Pulse Pulse Resp BP BP Pulse Ox 06/03/23 15:52 65 06/03/23 15:36 36.7 C 66 17 148/74 H 96 06/03/23 12:41 36.7 C 66 16 162/75 H 95 06/03/23 08:37 36.7 C 91 H 18 157/72 H 91 06/03/23 07:03 60 O2 Del Method 06/03/23 15:52 06/03/23 15:36 Room Air 06/03/23 12:41 Room Air 06/03/23 08:37 Room Air 06/03/23 07:03 Diagnostic Findings Abdominal xray was done today revealing mildly persistent dilated loops of small bowel less than 4mm. PG Care Time/CCT Total # of Minutes Spent Total Time Spent with Patient: Total time spent is greater than 50% in coordination of care (as documented) at patient's floor/unit and/or counseling patient: Coding Level of Care Code 42025 SUB INP/OBS CARE 10/24MIN Diagnoses Small bowel obstruction K56.609 Left inguinal hernia K40.90
[2023-06-03] MEDS: ONDANSETRON INJ 2 MG/ML 2 ML VIAL IV PRN (19:07)
[2023-06-03] MEDS: ACETAMINOPHEN 1,000 MG/100 ML VIAL IV PRN (19:12)
--- NOTE | 2023-06-03 22:30 | Electrocardiogram Report ---
Test Reason : Blood Pressure : / mmHG Vent. Rate : 070 BPM Atrial Rate : 070 BPM P-R Int : 168 ms QRS Dur : 100 ms QT Int : 424 ms P-R-T Axes : 062 -10 082 degrees QTc Int : 457 ms Sinus rhythm with Incomplete right bundle branch block Borderline ECG When compared with ECG of 26-MAY-2023 18:14, No significant change Confirmed by Lenny Reyes ([id number]) on 06/03/2023 10:30:21 PM Referred By: Francisco Carreon Confirmed By:Lenny Reyes
[2023-06-04] MEDS: NSS + 20MEQ KCL 20 MEQ/1,000 ML BAG IV SCH (01:06)
[2023-06-04] MEDS: HYDROmorphone INJ 0.5 MG/0.5 ML SYR IV PRN (02:58)
[2023-06-04] MEDS: PANTOprazole 40 MG in SYRINGE 0 ML IV SCH (07:55)
[2023-06-04] MEDS: HYDROCORTISONE SOD 50 MG in SYRINGE 0 ML IV SCH (07:55)
[2023-06-04] MEDS: ACETAMINOPHEN 1,000 MG/100 ML VIAL IV PRN ×2 (07:59→21:17)
[2023-06-04] MEDS: ONDANSETRON INJ 2 MG/ML 2 ML VIAL IV PRN (08:00)
[2023-06-04] MEDS ORDERED: PROPOFOL IV EMULSION 10 MG/ML 20 ML VIAL IV ONE (08:37)
[2023-06-04] MEDS ORDERED: ceFAZolin 2000MG 2,000 MG/15 ML SYR IV ONE (08:37)
[2023-06-04] MEDS ORDERED: MIDAZOLAM HCL 1 MG/ML 2ML VIAL ONE (08:37)
[2023-06-04] MEDS ORDERED: LIDOCAINE 2% 2 ML VIAL/AMP(20MG/ML) INFIL ONE (08:37)
[2023-06-04] MEDS ORDERED: fentaNYL citrate PF 100 MCG/2 ML VIAL ONE ×2 (08:37→12:26)
[2023-06-04 08:56] LABS: Basophils # (auto) 0.05 K/uL (0.00-0.20); Basophils % (auto) 0.4 %; Eosinophils # (auto) 0.15 K/uL (0.00-0.50); Eosinophils % (auto) 1.3 %; Hematocrit (blood only) 44.9 % (37.0-47.0); Hemoglobin 14.8 g/dl (12.0-16.0); Immature Granulocytes # (auto) 0.04 K/uL (0.01-0.20); Immature Granulocytes % (auto) 0.3 %; Lymphocytes # (auto) 2.34 K/uL (1.20-3.40); Lymphocytes % (auto) 20.5 %; Mean Corpuscular Volume 93.9 fL (80.0-100.0); Mean Platelet Volume 10.8 fL (9.4-12.4); Monocytes # (auto) 1.05 K/uL (0.11-0.59); Monocytes % (auto) 9.2 %; Neutrophils # (auto) 7.81 K/uL (1.40-6.50); Neutrophils % (auto) 68.3 %; Platelet Count 212 K/uL (130-400); RDW Coefficient of Variation 12.6 % (11.5-14.5); RDW Standard Deviation 43.5 fL (36.4-46.3); Red Blood Count 4.78 M/uL (4.20-5.40); White Blood Count 11.44 K/ul (4.8-10.8)
--- NOTE | 2023-06-04 08:56 | Anesthesiology Consultation ---
Date of Service June 04, 2023 Assessment & Plan Chart Review Chart Review: Acceptable Risk for Surgery and Patient NOT seen in Pre Admission Testing Consults Requested none ASA ASA3 Proposed Anesthesia Anesthesia Type: General History Surgery Operation Date: 06/04/23 07:00 Proposed Procedures p Left Inguinal Hernia Repair, Possible Mesh - Farhat Blancas, Height/Weight Height: 5 ft 8 in Weight: 83.5 kg Allergies Allergy/AdvReac Type Severity Reaction Status Date / Time baclofen AdvReac Intermediate NAUSEA/VOMI Verified 03/18/23 01:07 TING lisinopril AdvReac Intermediate COUGH Verified 03/18/23 01:07 Medications Home Medications Medication Instructions Recorded Confirmed Last Taken amlodipine 5 mg tablet 5 mg PO QAM 10/01/18 06/02/23 03/17/23 aspirin 81 mg tablet,delayed 81 mg PO PM 10/01/18 06/02/23 03/17/23 release atorvastatin 20 mg tablet 20 mg PO HS 10/01/18 06/02/23 03/17/23 calcium carbonate 600 mg-vitamin 1 tab PO QAM 10/01/18 06/02/23 03/17/23 D3 20 mcg (800 unit) chewable tablet (Caltrate 600 plus D) prednisone 5 mg tablet 5 mg PO QAM 10/01/18 06/02/23 03/17/23 pantoprazole 40 mg tablet,delayed 40 mg PO DAILYBB 07/04/21 06/02/23 03/17/23 release (Protonix) Lactobacil.acidophilus-Bifido.animalis 1 cap PO BID 03/18/23 06/02/23 03/17/23 5 billion cell sprinkle capsule (Probiotic) acetaminophen 325 mg tablet 650 mg PO DIRECTED PRN 03/18/23 06/02/23 Unknown (Tylenol) FEVER/PAIN duloxetine 20 mg capsule,delayed 20 mg PO QAM 03/18/23 06/02/23 03/17/23 release ibuprofen 200 mg tablet 400 mg PO Q4H PRN PAIN/FEVER 03/18/23 06/02/23 Unknown Active Medications Generic Name Dose Route Start Last Admin Trade Name Freq PRN Reason Stop Dose Admin Hydromorphone HCl 0.25 mg 06/02/23 12:13 06/04/23 02:58 Hydromorphone Inj 0.5 Mg/0.5 Ml Syr IV 06/16/23 12:12 0.25 mg Q4H PRN Administration Severe Pain (Scale 7, 8, 9,10) Potassium Chloride/Sodium Chloride 20 meq in 1,000 mls @ 50 mls/hr 06/02/23 12:30 06/04/23 01:06 Normal Saline W/20 Meq Kcl IV 07/02/23 12:29 50 mls/hr .Q20H AARTI Administration Pantoprazole Sodium 40 mg/ 10 mls @ 5 mls/min 06/02/23 12:45 06/04/23 07:55 Syringe IV 07/02/23 12:44 5 mls/min DAILY AARTI Administration Acetaminophen 1,000 mg in 100 mls @ 400 mls/hr 06/02/23 14:23 06/04/23 08:14 Ofirmev IV 06/05/23 12:59 Infused Q8 PRN Infusion pain Hydrocortisone Sodium 1 mls @ 4 mls/min 06/03/23 09:00 06/04/23 07:55 Succinate 50 mg/ Syringe IV 07/03/23 08:59 4 mls/min DAILY AARTI Administration Ondansetron HCl 4 mg 06/02/23 12:13 06/04/23 08:00 Ondansetron Inj 2 Mg/Ml 2 Ml Vial IV 07/02/23 12:12 4 mg Q6H PRN Administration Nausea Past Medical History Medical History Ascending aorta dilation Mild dilatation of the proximal ascending aorta was noted with max of 3.[address] on February 2018 [address] chest, stable compared to prior CT scan. 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 [place] [facility] [place] PMR (polymyalgia rheumatica) Splenic infarct ASCVD Ao Exercise / Class Metabolic Activity II 4-5 Yardwork/Stairs/Walk up hill Past Family History Family History Mother Hypertension Breast cancer Colon cancer Father Hypertension Past Surgical History Surgical History H/O aortic valve repair H/O atrial septal defect repair History of cataract surgery History of tubal ligation S/P craniotomy Past Anesthesia History No Hx of Anesthesia Complications and No Family Hx of Anesthesia Complications History of PONV No Hx of PONV and No Hx of Motion Sickness Social History Smoking Status: Former smoker Smoking cigarettes per day: 30 Hx Alcohol Use: No Hx Substance Use: No Physical Exam Vital Signs Last Vital Signs Temp 37.0 C 06/04/23 07:30 Pulse 63 06/04/23 07:30 Resp 18 06/04/23 07:30 BP 160/74 H 06/04/23 07:30 Pulse Ox 93 06/04/23 07:30 O2 Del Method Room Air 06/04/23 07:30 O2 Flow Rate 2 06/02/23 14:30 Testing Laboratory Results Urine Color Yellow 06/02/23 Unknown Urine Appearance Clear (Clear) 06/02/23 Unknown Urine pH 7.5 (4.5-7.5) 06/02/23 Unknown Ur Specific [place] 1.025 (1.000-1.030) 06/02/23 Unknown Urine Protein Negative (Negative) 06/02/23 Unknown Urine Glucose (UA) Negative (Negative) 06/02/23 Unknown Urine Ketones Negative (Negative) 06/02/23 Unknown Urine Nitrite Negative (Negative) 06/02/23 Unknown Ur Leukocyte Esterase Negative (Negative) 06/02/23 Unknown Urine WBC (Auto) 0 /hpf (0-5) 06/02/23 Unknown Urine RBC (Auto) 5-10 /hpf (0-4) H 06/02/23 Unknown U Hyaline Cast (Auto) 0 /lpf (0-5) 06/02/23 Unknown U Epithel Cells (Auto) 0-5 /lpf (0-5) 06/02/23 Unknown Urine Bacteria (Auto) Negative (Negative) 06/02/23 Unknown Electrocardiogram Date: 06/02/23 Findings: + NSR @ (@ 70 w/ IRBBB) Chest X-Ray Date: 03/18/23 Findings: + NAD Stress Test Date: 10/02/18 Type: exercise Findings: + WNL and + did not achieved max HR (non - diagnostic ;failed to attain 85% MPHR ;Non-ischemic @ 64% MPHR;7.3 METS,14% upgrade) Resting EF: 60% Resting LV Function: normal Resting RWMA: + none Valvular Disease: no significant valvular disease and MR (mild MR) Grade 1 DD Other Testing 05/26/2023-Neck [id number] stenosis proximally;No H/D sig. stenoses
[2023-06-04] MEDS ORDERED: ONDANSETRON INJ 2 MG/ML 2 ML VIAL IV PRN (09:18)
[2023-06-04] MEDS ORDERED: ePHEDrine sulfate 50 MG/ML AMP IV PRN (09:18)
[2023-06-04] MEDS ORDERED: ATROPINE SULFATE 0.1 MG/ML 10ML SYR IV PRN (09:18)
[2023-06-04] MEDS ORDERED: HYDROmorphone INJ 1 MG/ML SYRINGE IV PRN (09:18)
[2023-06-04] MEDS ORDERED: SUCCINYLCHOLINE CHLORIDE 20 MG/ML 10 ML VIAL IV ONE (09:26)
[2023-06-04] MEDS ORDERED: ROCURONIUM BROMIDE 10 MG/ML 5 ML VIAL IV ONE (09:26)
[2023-06-04] MEDS ORDERED: LACTATED RINGER'S 1,000 ML IV SCH (09:30)
[2023-06-04] MEDS ORDERED: BACITRACIN OINT 14 GM TUBE ONE (09:43)
[2023-06-04] MEDS ORDERED: BUPIVACAINE/EPINEPHRINE 0.5% MPF 1:200,000 30 ML VIAL ONE (09:43)
[2023-06-04 10:00] LABS: Albumin Globulin Ratio 1.6 (0.9-2); Albumin Level 4.2 gm/dl (3.4-5.0); BUN Creatinine Ratio 21.2 (10-20); Bilirubin,Total 2.1 mg/dl (0.2-1.0); Calcium 8.9 mg/dl (8.6-10.3); Creatinine Clr Calc Pharmacy 65.8 ml/min; Est GFR (African American) 78.2 ml/min; Est GFR (Non-African American) 67.5 ml/min; Globulin 2.7 gm/dl (2.5-4.0); Potassium 4.1 mmol/L (3.5-5.1); Total Protein 6.9 gm/dl (6.0-8.3)
[2023-06-04] MEDS ORDERED: DEXTROSE 50% 50 ML SYRINGE IV ONE ×2 (10:19)
--- NOTE | 2023-06-04 10:30 | Surgery Progress Note ---
Date of Service June 04, 2023 Assessment & Plan (1) Small bowel obstruction: Plan: The patient will be taken to the operating room this am for left inguinal hernia repair. The details of the procedure have been explained to her including the risks and benefits. She expressed understanding of this explanation. Consent was obtained. Admission and Anticipated Discharge Date Admission Date: June 02, 2023 Subjective Patient was seen and examined this am. She continues to complain of intermittent abdominal pain. She denies nausea. Physical Exam Constitutional: cooperative; no acute distress, not frail appearing and not diaphoretic Respiratory: normal respiratory effort; no respiratory distress, no labored breathing and does not use accessory muscles Gastrointestinal (Abdomen): Abdomen is soft, mild TTP. NGT 300cc's o/n Results & Data Vital Signs (Past 12 Hours) Vital Signs Temp Pulse Pulse Resp BP Pulse Ox O2 Del Method 06/04/23 09:08 36.6 C 76 18 163/84 H 97 Room Air 06/04/23 07:30 37.0 C 63 18 160/74 H 93 Room Air 06/04/23 07:19 60 06/04/23 02:49 36.4 C L 61 18 150/82 H 93 Room Air 06/03/23 23:11 36.3 C L 55 L 18 130/67 92 Room Air PG Care Time/CCT Total # of Minutes Spent Total Time Spent with Patient: Total time spent is greater than 50% in coordination of care (as documented) at patient's floor/unit and/or counseling patient: Coding Level of Care Code 49421 SUB INP/OBS CARE 25MIN Diagnoses Small bowel obstruction K56.609
--- NOTE | 2023-06-04 11:24 | Hospitalist Progress Note ---
Date of Service June 04, 2023 Assessment & Plan (1) Small bowel obstruction: (2) Left inguinal hernia: Plan: Patient presents to the hospital with lower left-sided abdominal pain since last 8 hours along with nausea and vomiting. Leukocytosis present on admission; improving Creatinine elevated to 1.22 on admission; improved. Lactate within normal limits. Liver enzymes are within normal limits. CT abdomen pelvis personally reviewed; loop of small bowel contained within left inguinal hernia. ED doctor attempted reduction; patient reports improvement of pain since then Patient undergoing left inguinal hernia repair by surgery today. Diet as per surgery. Noted to have hypoglycemic episode this morning; treated with D50. Will place her on D5 NS to prevent further hypoglycemic episode. Supportive care with IV fluids, IV analgesics and antiemetics. Other conditions; Polymyalgia rheumatica on chronic prednisone: Has been on prednisone for many years. On hydrocortisone while patient is n.p.o. we will go back down to home dose of prednisone after able to take oral meds. Hypertension- amlodipine on hold. Continue to monitor for now. Mood disorderoral duloxetine on hold. Resume when able to take oral meds. Nonobstructive CADon aspirin and Lipitor. Currently on hold. Hyperlipidemiaon Lipitor. Currently on hold; resume when able to take oral. GERDon Protonix; changed to IV. Please note the above document was generated using voice recognition software. It may contain grammatical, syntax or spelling errors. Any formal questions or concerns about the content, text or information contained within the body of this dictation should be directly addressed to the provider for clarification Admission and Anticipated Discharge Date Admission Date: June 02, 2023 Subjective Patient taken to the OR for left inguinal hernia repair. Continues to have NG tube. Review of Systems Review of Systems: All systems reviewed & are unremarkable except as noted in Subjective Physical Exam Physical Exam: Constitutional: Alert orient x3; appears to be in mild distress. NG tube in place Respiratory: normal respiratory effort, lungs clear to auscultation, no wheeze, rales, rhonchi. Normal insp/exp effort, no accessory muscle use Cardiovascular: RRR, no murmur, no edema Vessels: no JVD or carotid bruit Chest: normal inspection of chest Abdomen: Soft, nontender. Inguinal hernia not appreciated. Bowel sound hypoactive. Musculoskeletal: no cyanosis or clubbing, extremities motor strength 5/5 Skin: no rashes, warm and dry normal turgor Neurologic: PERRL, EOMI, accommodation nl, no face palsy, no dysarthria CN's II- XI intact bilaterally and moves all extremities Psychiatric: A+Ox3, euthymic affect Results & Data Results & Data Vital Signs (Past 12 Hours) Vital Signs Temp Pulse Pulse Resp BP Pulse Ox O2 Del Method 06/04/23 09:08 36.6 C 76 18 163/84 H 97 Room Air 06/04/23 07:30 37.0 C 63 18 160/74 H 93 Room Air 06/04/23 07:19 60 06/04/23 02:49 36.4 C L 61 18 150/82 H 93 Room Air Laboratory Results Laboratory Results WBC 11.44 K/ul (4.8-10.8) H 06/04/23 07:58 RBC 4.78 M/uL (4.20-5.40) 06/04/23 07:58 Hgb 14.8 g/dl (12.0-16.0) 06/04/23 07:58 POC Hgb 15.0 g/dl (12.0-16.0) 06/02/23 04:54 Hct 44.9 % (37.0-47.0) 06/04/23 07:58 POC Hct 44 % (37-47) 06/02/23 04:54 MCV 93.9 fL (80.0-100.0) 06/04/23 07:58 MCH 31.0 pg (25.0-34.0) 06/04/23 07:58 MCHC 33.0 g/dL (32.0-36.0) 06/04/23 07:58 RDW Std Deviation 43.5 fL (36.4-46.3) 06/04/23 07:58 RDW Coeff of Sandor 12.6 % (11.5-14.5) 06/04/23 07:58 Plt Count 212 K/uL (130-400) 06/04/23 07:58 MPV 10.8 fL (9.4-12.4) 06/04/23 07:58 Immature Gran % (Auto) 0.3 % 06/04/23 07:58 Neut % (Auto) 68.3 % 06/04/23 07:58 Lymph % (Auto) 20.5 % 06/04/23 07:58 [place] % (Auto) 9.2 % 06/04/23 07:58 Eos % (Auto) 1.3 % 06/04/23 07:58 Baso % (Auto) 0.4 % 06/04/23 07:58 Neut # (Auto) 7.81 K/uL (1.40-6.50) H 06/04/23 07:58 Lymph # (Auto) 2.34 K/uL (1.20-3.40) 06/04/23 07:58 [place] # (Auto) 1.05 K/uL (0.11-0.59) H 06/04/23 07:58 Eos # (Auto) 0.15 K/uL (0.00-0.50) 06/04/23 07:58 Baso # (Auto) 0.05 K/uL (0.00-0.20) 06/04/23 07:58 Immature Gran # (Auto) 0.04 K/uL (0.01-0.20) 06/04/23 07:58 POC Sodium 141 mmol/L (135-144) 06/02/23 04:54 Sodium 140 mmol/L (136-145) 06/04/23 07:58 POC Potassium 4.0 mmol/L (3.3-5.0) 06/02/23 04:54 Potassium 4.1 mmol/L (3.5-5.1) 06/04/23 07:58 POC Chloride 104 mmol/L (101-112) 06/02/23 04:54 Chloride 106 mmol/L (98-107) 06/04/23 07:58 Carbon Dioxide 23 mmol/L (21-32) 06/04/23 07:58 POC Total CO2 26 mmol/L (24-31) 06/02/23 04:54 Anion Gap 11 (3-11) 06/04/23 07:58 POC Anion Gap 15.0 mmol/L (16-25) L 06/02/23 04:54 POC BUN 30 mg/dl (7-18) H 06/02/23 04:54 BUN 18 mg/dl (6-23) 06/04/23 07:58 Creatinine 0.85 mg/dl (0.6-1.2) 06/04/23 07:58 POC Creatinine 1.3 mg/dl (0.6-1.3) 06/02/23 04:54 Est Cr Clr Drug Dosing 65.8 ml/min 06/04/23 07:58 Est GFR ( Amer) 78.2 ml/min 06/04/23 07:58 Est GFR (Non-Af Amer) 67.5 ml/min 06/04/23 07:58 BUN/Creatinine Ratio 21.2 (10-20) H 06/04/23 07:58 Glucose 45 mg/dl (70-99(Fasting)) L* 06/04/23 07:58 POC Glucose 108 mg/dl (70-99) H 06/04/23 11:03 POC Glucose (other) 85 mg/dl (70-99) 06/02/23 04:54 Lactate 1.3 mmol/L (0.4-2.0) 06/02/23 04:48 Calcium 8.9 mg/dl (8.6-10.3) 06/04/23 07:58 POC Ioniz Calcium Apolinar 1.08 mmol/l (1.12-1.32) L 06/02/23 04:54 Magnesium 1.9 mg/dl (1.7-2.4) 06/02/23 04:48 Total Bilirubin 2.1 mg/dl (0.2-1.0) H 06/04/23 07:58 Direct Bilirubin TNP 06/02/23 04:48 AST 15 U/L (13-39) 06/04/23 07:58 ALT 10 U/L (7-52) 06/04/23 07:58 Alkaline Phosphatase 54 U/L (34-104) 06/04/23 07:58 Troponin I High Sens 7.5 pg/ml (0-14) 06/02/23 04:48 Total Protein 6.9 gm/dl (6.0-8.3) 06/04/23 07:58 Albumin 4.2 gm/dl (3.4-5.0) 06/04/23 07:58 Globulin 2.7 gm/dl (2.5-4.0) 06/04/23 07:58 Albumin/Globulin Ratio 1.6 (0.9-2) 06/04/23 07:58 Lipase 22 U/L (11-82) 06/02/23 04:48 Urine Color Yellow 06/02/23 Unknown Urine Appearance Clear (Clear) 06/02/23 Unknown Urine pH 7.5 (4.5-7.5) 06/02/23 Unknown Ur Specific [place] 1.025 (1.000-1.030) 06/02/23 Unknown Urine Protein Negative (Negative) 06/02/23 Unknown Urine Glucose (UA) Negative (Negative) 06/02/23 Unknown Urine Ketones Negative (Negative) 06/02/23 Unknown Urine Blood 1+ (Negative) H 06/02/23 Unknown Urine Nitrite Negative (Negative) 06/02/23 Unknown Urine Bilirubin Negative (Negative) 06/02/23 Unknown Urine Urobilinogen Negative (Negative) 06/02/23 Unknown Ur Leukocyte Esterase Negative (Negative) 06/02/23 Unknown Urine WBC (Auto) 0 /hpf (0-5) 06/02/23 Unknown Urine RBC (Auto) 5-10 /hpf (0-4) H 06/02/23 Unknown U Hyaline Cast (Auto) 0 /lpf (0-5) 06/02/23 Unknown U Epithel Cells (Auto) 0-5 /lpf (0-5) 06/02/23 Unknown Urine Bacteria (Auto) Negative (Negative) 06/02/23 Unknown Impressions Abdomen/Pelvis CT 06/02/23 04:32 CT SCAN OF THE ABDOMEN AND PELVIS WITH IV CONTRAST CLINICAL HISTORY: Generalized abdominal pain. Nausea. COMPARISON STUDY: Abdominal CT dated 03/18/2023. TECHNIQUE: Following the IV administration of 92 cc of Optiray 320, CT scan of the abdomen and pelvis is performed from the lung bases to the proximal femora. Images are reviewed in the axial, sagittal, and coronal planes. IV contrast was administered without complication. A dose lowering technique was utilized adhering to the principles of ALARA. CT DOSE: 1365.85 mGy.cm FINDINGS: Lung bases: The patient is status post midline sternotomy. Epicardial leads are in place. The heart is normal in size and without pericardial effusion. The coronary arteries are densely calcified. The lung bases are clear noting dependent atelectasis. Liver: The contrast-enhanced liver is normal in size, contour, and attenuation. There is no intrahepatic biliary ductal dilatation. The hepatic veins and portal veins are patent. Gallbladder: Unremarkable. Spleen: Normal in size and attenuation. Pancreas: The pancreas is mildly atrophic.. Adrenal glands: Unremarkable. Kidneys: The contrast enhanced kidneys are normal in size and without hydronephrosis. The kidneys enhance symmetrically. Abdominal vasculature: The abdominal aorta is normal in course and caliber noting advanced atherosclerotic calcification. Bowel: There is a left inguinal hernia which contains a segment of small bowel. The upstream small bowel is mildly distended and fluid-filled. The distal small bowel is decompressed, and this contributes to at least partial small bowel obstruction. No focally thick-walled bowel loops are identified. There is no pneumatosis intestinalis or portal venous gas. Liquid stool is noted in the right colon. Moderate fecal retention is seen in the left colon. The appendix is well-visualized and normal. Peritoneum: There is no intraperitoneal free air or abdominal ascites. There is a small fat-containing umbilical hernia. Lymphadenopathy: None. Pelvic viscera: The bladder, uterus, and adnexa are normal as visualized. There is a small bowel containing left inguinal hernia. See above. Skeletal structures: The skeletal structures are osteopenic. There is mild to moderate lumbosacral spondylosis. Grade 1 anterolisthesis is noted at L4-L5. No lytic or blastic lesions are seen. IMPRESSION: 1. There is a loop of small bowel contained within a left inguinal hernia. The upstream small bowel is mildly distended and fluid-filled, and the distal small bowel is decompressed. This likely represents a partial small bowel obstruction. 2. No intraperitoneal free air is seen. No thick walled bowel loops are identified and there is no pneumatosis intestinalis or portal venous gas. 3. Additional findings as above. ACT 112: Negative or not required by law. Electronically signed by: Jl Bloom M.D. 06/02/2023 7:13 AM KUB X-Ray 06/03/23 12:20 KUB HISTORY: NG tube placement. Small bowel obstruction. eval bowel/gas pattern COMPARISON: KUB 06/02/2023. FINDINGS: Nasogastric tube terminates in the mid stomach. This remains unchanged. There are postoperative changes again noted. Moderate fecal retention, unchanged. A few mildly dilated gas-filled loops of small bowel again noted within the abdomen. These measure up to 3.6 cm in diameter. No renal calculi. No ureteral calculi. No pneumoperitoneum or pneumatosis. IMPRESSION: 1. Nasogastric tube terminates in the stomach. 2. Mild gaseous distention of the small bowel persists. This suggests persistent small bowel obstruction. 3. Moderate fecal retention. ACT 112: Negative or not required by law. Electronically signed by: William Chavis M.D. 06/03/2023 2:03 PM
[2023-06-04] MEDS ORDERED: GLYCOPYRROLATE 0.2 MG/ML VIAL ONE (11:51)
[2023-06-04] MEDS ORDERED: NEOSTIGMINE METHYLSULFATE 1 MG/ML 10ML VIAL ONE (11:51)
[2023-06-04] MEDS ORDERED: DEXAMETHASONE SOD INJ 4 MG/ML VIAL ONE (11:52)
[2023-06-04] MEDS ORDERED: ePHEDrine sulfate 50 MG/5 ML SYR ONE (11:52)
[2023-06-04] MEDS ORDERED: ONDANSETRON INJ 2 MG/ML 2 ML VIAL ONE (11:52)
[2023-06-04] MEDS: D5W AND NSS 1,000 ML IV SCH (12:00)
--- NOTE | 2023-06-04 12:46 | Operative Report ---
[facility] Post Operative Report Pre & Post Diagnosis Operation Date: 06/04/23 07:00 Pre-Op Diagnosis: 1. Small bowel obstruction 2. Left inguinal hernia Post-Op Diagnosis: 1. Small bowel obstruction 2. Left inguinal hernia I identified the patient and participated in the time-out.: Yes Procedure Operation Date: 06/04/23 07:00 Actual Procedures p Left Open Inguinal Hernia Repair with Mesh(Left) - Farhat Blancas DO Surgeon Farhat Blancas DO Plating Stripper Gwen Jones Estimated Blood Loss 1 Findings Consistent with Post-Op Diagnosis Specimens None Anesthesia Type General Complications None Indications Left inguinal hernia with small bowel biopsy on admission Description of Procedure Within the procedure the patient was brought back to the operating room and placed on the operating table in supine position. SCDs were applied to bilateral lower extremities. She was connected to oxygen and cardiac monitoring and general anesthesia was administered. A secure airway was obtained. The abdomen was prepped and draped in typical sterile fashion including the groins. A timeout was conducted. Local anesthetic was injected into the skin and subcutaneous tissue of the left groin and an incision was made with a 15 blade subcutaneous tissue was dissected using cautery and suture ligation was used to transect a vein in the subcutaneous tissue. The external oblique aponeurosis was identified at the shelving edge and the external inguinal ring. An incision was made in the external oblique fascia that was extended to the external ring and extended slightly towards the internal ring. The round ligament was isolated as well as ilioinguinal nerve and a small hernia sac was identified. The hernia sac was opened using Metzenbaums and digitized with my finger to be sure there was no bowel within the hernia. There is no bowel protruding through the hernia sac, the sac was then ligated with Prolene suture and reduced back into the abdomen. The transversalis fascia was noted to be loose and was reinforced using Prolene sutures to be imbricated to the pectineal ligament at the level of the internal inguinal ring. A keyhole mesh patch was used to reinforce this area secured in place with Prolene sutures from the inferior edge of the inguinal ligament to the anterior surface of the internal oblique. The ilioinguinal iliohypogastric nerves were protected during the repair. Local anesthetic was injected into the tissues surrounding the nerves as well as the muscle fascia. The external oblique aponeurosis was reapproximated using 2-0 Vicryl suture. Feliberto's fascia was closed using 3-0 Vicryl suture. The skin was closed with 4-0 Vicryl suture. The wound was then dressed with Steri-Strips and sterile gauze secured in place with perforated tape. The patient tolerated the procedure well. She was awakened from anesthesia, the secure airway was removed and she was transferred to recovery in stable condition I attest to the content of the Intraoperative Record and any orders documented therein. Any exceptions are noted below.
--- NOTE | 2023-06-04 13:07 | Anesthesiology Progress Note ---
Date of Service June 04, 2023 Anesthesia Post Procedure Vital Signs Vital Signs: Temp Pulse Pulse Pulse Resp BP Pulse Ox 06/04/23 13:00 67 14 142/60 H 97 06/04/23 12:50 80 20 150/75 H 99 06/04/23 12:44 36.0 C L 81 10 L 161/83 H 98 06/04/23 09:08 36.6 C 76 18 163/84 H 97 06/04/23 07:30 37.0 C 63 18 160/74 H 93 06/04/23 07:19 60 06/04/23 02:49 36.4 C L 61 18 150/82 H 93 06/03/23 22:01 65 06/03/23 23:11 36.3 C L 55 L 18 130/67 92 06/03/23 19:20 36.8 C 67 18 173/74 H 94 06/03/23 15:52 65 06/03/23 15:36 36.7 C 66 17 148/74 H 96 O2 Del Method O2 Flow Rate 06/04/23 13:00 Oxymask 2 06/04/23 12:50 Oxymask 4 06/04/23 12:44 Oxymask 6 06/04/23 09:08 Room Air 06/04/23 07:30 Room Air 06/04/23 07:19 06/04/23 02:49 Room Air 06/03/23 22:01 06/03/23 23:11 Room Air 06/03/23 19:20 Room Air 06/03/23 15:52 06/03/23 15:36 Room Air Pain Intensity Abdomen: Pain Intensity: 7 Head: Pain Intensity: 8 Transfer of Care Handoff Completed per policy Notes Mental Status: alert / awake / arousable Patient Amnestic to Procedure: Yes Nausea / Vomiting: adequately controlled Pain: adequately controlled Airway Patency, RR, SpO2: stable & adequate BP & HR: stable & adequate Hydration State: stable & adequate Anesthetic Complications: no major complications apparent and Pt Satisfied with anesthetic care
[2023-06-04] MEDS ORDERED: HYDROmorphone INJ 0.5 MG/0.5 ML SYR IV PRN ×2 (13:48)
[2023-06-05] MEDS: D5W AND NSS 1,000 ML IV SCH (04:42)
--- NOTE | 2023-06-05 08:15 | Surgery Progress Note ---
Date of Service June 05, 2023 Assessment & Plan (1) Small bowel obstruction: (2) Left inguinal hernia: Plan POD 1 S/P left inguinal hernia repair for previous small bowel obstruction involving this hernia. Afebrile, HD stable. Follow-up a.m. labs. Will advance diet to full liquids today. Plan for discharge later today pending lab results. Admission and Anticipated Discharge Date Admission Date: June 02, 2023 Subjective Patient was seen and examined this a.m. Says she feels well and has no complaints. Had some mild soreness at her left groin surgical incision overnight. Denies nausea, vomiting or abdominal pain. She tolerated clear liquids after surgery yesterday and overnight. Would like increased oral intake as well as discharge home. Physical Exam Gastrointestinal (Abdomen): Abdomen is soft, nontender. Surgical dressing is clean dry and intact. There is no erythema, bruising or swelling around the dressings. Results & Data Vital Signs (Past 12 Hours) Vital Signs Temp Pulse Pulse Resp BP Pulse Ox O2 Del Method 06/05/23 07:30 51 L 06/05/23 02:33 36.7 C 56 L 150/88 H 94 Room Air 06/04/23 23:11 36.7 C 16 144/72 H 92 Room Air 06/04/23 23:15 50 L PG Care Time/CCT Total # of Minutes Spent Total Time Spent with Patient: Total time spent is greater than 50% in coordination of care (as documented) at patient's floor/unit and/or counseling patient: Coding Level of Care Code 71517 Post Operative Follow-Up Diagnoses Small bowel obstruction K56.609 Left inguinal hernia K40.90
[2023-06-05] MEDS: HYDROCORTISONE SOD 50 MG in SYRINGE 0 ML IV SCH (09:34)
[2023-06-05] MEDS: PANTOprazole 40 MG in SYRINGE 0 ML IV SCH (09:34)
[2023-06-05 09:45] LABS: Basophils # (auto) 0.03 K/uL (0.00-0.20); Basophils % (auto) 0.2 %; Hematocrit (blood only) 37.7 % (37.0-47.0); Hemoglobin 12.6 g/dl (12.0-16.0); Immature Granulocytes # (auto) 0.12 K/uL (0.01-0.20); Immature Granulocytes % (auto) 0.7 %; Lymphocytes # (auto) 1.69 K/uL (1.20-3.40); Lymphocytes % (auto) 10.1 %; Mean Corpuscular Hemoglobin 30.4 pg (25.0-34.0); Mean Corpuscular Hgb Conc 33.4 g/dL (32.0-36.0); Mean Corpuscular Volume 91.1 fL (80.0-100.0); Mean Platelet Volume 10.5 fL (9.4-12.4); Monocytes # (auto) 1.34 K/uL (0.11-0.59); Neutrophils # (auto) 13.55 K/uL (1.40-6.50); Platelet Count 206 K/uL (130-400); RDW Coefficient of Variation 12.4 % (11.5-14.5); RDW Standard Deviation 41.1 fL (36.4-46.3); Red Blood Count 4.14 M/uL (4.20-5.40); White Blood Count 16.73 K/ul (4.8-10.8)
[2023-06-05 10:15] LABS: Albumin Globulin Ratio 1.4 (0.9-2); Albumin Level 3.4 gm/dl (3.4-5.0); BUN Creatinine Ratio 15.3 (10-20); Bilirubin,Total 1.4 mg/dl (0.2-1.0); Calcium 8.1 mg/dl (8.6-10.3); Creatinine Clr Calc Pharmacy 65.9 ml/min; Est GFR (African American) 78.2 ml/min; Est GFR (Non-African American) 67.5 ml/min; Globulin 2.5 gm/dl (2.5-4.0); Total Protein 5.9 gm/dl (6.0-8.3)
[2023-06-05] MEDS ORDERED: ACETAMINOPHEN 325 MG TAB PO PRN (10:43)
[2023-06-05] MEDS ORDERED: oxyCODONE HCL IR 5 MG TAB (IMMEDIATE RELEASE) PO PRN (10:43)
[2023-06-05] MEDS ORDERED: DULoxetine HCL 20 MG CAP PO SCH (10:45)
[2023-06-05] MEDS ORDERED: amLODIPine BESYLATE 5 MG TAB PO SCH (10:45)
--- NOTE | 2023-06-05 11:59 | Hospitalist Progress Note ---
Date of Service June 05, 2023 Assessment & Plan (1) Small bowel obstruction: (2) Left inguinal hernia: Plan: Patient presents to the hospital with lower left-sided abdominal pain since last 8 hours along with nausea and vomiting. Leukocytosis present on admission; improving Creatinine elevated to 1.22 on admission; improved. Lactate within normal limits. Liver enzymes are within normal limits. CT abdomen pelvis personally reviewed; loop of small bowel contained within left inguinal hernia. ED doctor attempted reduction; patient reports improvement of pain since then During the hospitalization, patient underwent left open inguinal hernia repair on June 04 by surgery. NG tube was taken out after undergoing surgery. Patient was then started on clear liquid diet which was advanced to full liquid. Possible discharge in the afternoon if patient continues to tolerate full liquid diet. Follow-up with surgery and PCP after discharge. Other conditions; Polymyalgia rheumatica on chronic prednisone: Stop hydrocortisone. Start prednisone Hypertension-on amlodipine continue Mood disorderoral duloxetine. Continue Nonobstructive CADon aspirin and Lipitor. Continue Hyperlipidemiaon Lipitor. Continue GERDon Protonix; continue Please note the above document was generated using voice recognition software. It may contain grammatical, syntax or spelling errors. Any formal questions or concerns about the content, text or information contained within the body of this dictation should be directly addressed to the provider for clarification Admission and Anticipated Discharge Date Admission Date: June 02, 2023 Subjective NGT was taken out yesterday. Patient was started on clear liquid diet advance to full liquid. She is tolerating it well; passing gas. Complains of pain at the incision site. Review of Systems Review of Systems: All systems reviewed & are unremarkable except as noted in Subjective Physical Exam Physical Exam: Constitutional: Alert orient x3; appears to be in mild distress. Respiratory: normal respiratory effort, lungs clear to auscultation, no wheeze, rales, rhonchi. Normal insp/exp effort, no accessory muscle use Cardiovascular: RRR, no murmur, no edema Vessels: no JVD or carotid bruit Chest: normal inspection of chest Abdomen: Soft, nontender. Dressing over the surgical site clean dry intact. Musculoskeletal: no cyanosis or clubbing, extremities motor strength 5/5 Skin: no rashes, warm and dry normal turgor Neurologic: PERRL, EOMI, accommodation nl, no face palsy, no dysarthria CN's II- XI intact bilaterally and moves all extremities Psychiatric: A+Ox3, euthymic affect Results & Data Results & Data Vital Signs (Past 12 Hours) Vital Signs Temp Pulse Pulse Pulse Resp BP Pulse Ox 06/05/23 11:35 36.5 C 54 L 14 164/74 H 93 06/05/23 07:45 36.7 C 54 L 14 150/76 H 93 06/05/23 07:30 51 L 06/05/23 02:33 36.7 C 56 L 150/88 H 94 O2 Del Method 06/05/23 11:35 Room Air 06/05/23 07:45 Room Air 06/05/23 07:30 06/05/23 02:33 Room Air Laboratory Results Laboratory Results WBC 16.73 K/ul (4.8-10.8) H 06/05/23 09: RBC 4.14 M/uL (4.20-5.40) L 06/05/23 09: Hgb 12.6 g/dl (12.0-16.0) 06/05/23 09: POC Hgb 15.0 g/dl (12.0-16.0) 06/02/23 04:54 Hct 37.7 % (37.0-47.0) 06/05/23 09: POC Hct 44 % (37-47) 06/02/23 04:54 MCV 91.1 fL (80.0-100.0) 06/05/23 09: MCH 30.4 pg (25.0-34.0) 06/05/23 09: MCHC 33.4 g/dL (32.0-36.0) 06/05/23 09: RDW Std Deviation 41.1 fL (36.4-46.3) 06/05/23: RDW Coeff of Sandor 12.4 % (11.5-14.5) 06/05/23: Plt Count 206 K/uL (130-400) 06/05/23 09: MPV 10.5 fL (9.4-12.4) 06/05/23 09: Immature Gran % (Auto) 0.7 % 06/05/23 09: Neut % (Auto) 81.0 % 06/05/23 09: Lymph % (Auto) 10.1 % 06/05/23 09:23 [place] % (Auto) 8.0 % 06/05/23 09: Eos % (Auto) 0.0 % 06/05/23 09:23 Baso % (Auto) 0.2 % 06/05/23 09:23 Neut # (Auto) 13.55 K/uL (1.40-6.50) H 06/05/23 09: Lymph # (Auto) 1.69 K/uL (1.20-3.40) 06/05/23 09:23 [place] # (Auto) 1.34 K/uL (0.11-0.59) H 06/05/23 09: Eos # (Auto) 0.00 K/uL (0.00-0.50) 06/05/23 09: Baso # (Auto) 0.03 K/uL (0.00-0.20) 06/05/23 09: Immature Gran # (Auto) 0.12 K/uL (0.01-0.20) 06/05/23 09:23 POC Sodium 141 mmol/L (135-144) 06/02/23 04:54 Sodium 138 mmol/L (136-145) 06/05/23 09:23 POC Potassium 4.0 mmol/L (3.3-5.0) 06/02/23 04:54 Potassium 4.0 mmol/L (3.5-5.1) 06/05/23 09:23 POC Chloride 104 mmol/L (101-112) 06/02/23 04:54 Chloride 106 mmol/L (98-107) 06/05/23 09:23 Carbon Dioxide 26 mmol/L (21-32) 06/05/23 09:23 POC Total CO2 26 mmol/L (24-31) 06/02/23 04:54 Anion Gap 6 (3-11) 06/05/23 09:23 POC Anion Gap 15.0 mmol/L (16-25) L 06/02/23 04:54 POC BUN 30 mg/dl (7-18) H 06/02/23 04:54 BUN 13 mg/dl (6-23) 06/05/23 09: Creatinine 0.85 mg/dl (0.6-1.2) 06/05/23 09:23 POC Creatinine 1.3 mg/dl (0.6-1.3) 06/02/23 04:54 Est Cr Clr Drug Dosing 65.9 ml/min 06/05/23 09:23 Est GFR ( Amer) 78.2 ml/min 06/05/23 09:23 Est GFR (Non-Af Amer) 67.5 ml/min 06/05/23 09:23 BUN/Creatinine Ratio 15.3 (10-20) 06/05/23 09:23 Glucose 130 mg/dl (70-99(Fasting)) H 06/05/23 09:23 POC Glucose 157 mg/dl (70-99) H 06/04/23 20:27 POC Glucose (other) 85 mg/dl (70-99) 06/02/23 04:54 Lactate 1.3 mmol/L (0.4-2.0) 06/02/23 04:48 Calcium 8.1 mg/dl (8.6-10.3) L 06/05/23 09:23 POC Ioniz Calcium Apolinar 1.08 mmol/l (1.12-1.32) L 06/02/23 04:54 Magnesium 1.9 mg/dl (1.7-2.4) 06/02/23 04:48 Total Bilirubin 1.4 mg/dl (0.2-1.0) H 06/05/23 09:23 Direct Bilirubin TNP 06/02/23 04:48 AST 14 U/L (13-39) 06/05/23 09:23 ALT 7 U/L (7-52) 06/05/23 09:23 Alkaline Phosphatase 41 U/L (34-104) 06/05/23 09:23 Troponin I High Sens 7.5 pg/ml (0-14) 06/02/23 04:48 Total Protein 5.9 gm/dl (6.0-8.3) L 06/05/23 09:23 Albumin 3.4 gm/dl (3.4-5.0) 06/05/23 09:23 Globulin 2.5 gm/dl (2.5-4.0) 06/05/23 09:23 Albumin/Globulin Ratio 1.4 (0.9-2) 06/05/23 09:23 Lipase 22 U/L (11-82) 06/02/23 04:48 Urine Color Yellow 06/02/23 Unknown Urine Appearance Clear (Clear) 06/02/23 Unknown Urine pH 7.5 (4.5-7.5) 06/02/23 Unknown Ur Specific [place] 1.025 (1.000-1.030) 06/02/23 Unknown Urine Protein Negative (Negative) 06/02/23 Unknown Urine Glucose (UA) Negative (Negative) 06/02/23 Unknown Urine Ketones Negative (Negative) 06/02/23 Unknown Urine Blood 1+ (Negative) H 06/02/23 Unknown Urine Nitrite Negative (Negative) 06/02/23 Unknown Urine Bilirubin Negative (Negative) 06/02/23 Unknown Urine Urobilinogen Negative (Negative) 06/02/23 Unknown Ur Leukocyte Esterase Negative (Negative) 06/02/23 Unknown Urine WBC (Auto) 0 /hpf (0-5) 06/02/23 Unknown Urine RBC (Auto) 5-10 /hpf (0-4) H 06/02/23 Unknown U Hyaline Cast (Auto) 0 /lpf (0-5) 06/02/23 Unknown U Epithel Cells (Auto) 0-5 /lpf (0-5) 06/02/23 Unknown Urine Bacteria (Auto) Negative (Negative) 06/02/23 Unknown Impressions Abdomen/Pelvis CT 06/02/23 04:32 CT SCAN OF THE ABDOMEN AND PELVIS WITH IV CONTRAST CLINICAL HISTORY: Generalized abdominal pain. Nausea. COMPARISON STUDY: Abdominal CT dated 03/18/2023. TECHNIQUE: Following the IV administration of 92 cc of Optiray 320, CT scan of the abdomen and pelvis is performed from the lung bases to the proximal femora. Images are reviewed in the axial, sagittal, and coronal planes. IV contrast was administered without complication. A dose lowering technique was utilized adhering to the principles of ALARA. CT DOSE: 1365.85 mGy.cm FINDINGS: Lung bases: The patient is status post midline sternotomy. Epicardial leads are in place. The heart is normal in size and without pericardial effusion. The coronary arteries are densely calcified. The lung bases are clear noting dependent atelectasis. Liver: The contrast-enhanced liver is normal in size, contour, and attenuation. There is no intrahepatic biliary ductal dilatation. The hepatic veins and portal veins are patent. Gallbladder: Unremarkable. Spleen: Normal in size and attenuation. Pancreas: The pancreas is mildly atrophic.. Adrenal glands: Unremarkable. Kidneys: The contrast enhanced kidneys are normal in size and without hydronephrosis. The kidneys enhance symmetrically. Abdominal vasculature: The abdominal aorta is normal in course and caliber noting advanced atherosclerotic calcification. Bowel: There is a left inguinal hernia which contains a segment of small bowel. The upstream small bowel is mildly distended and fluid-filled. The distal small bowel is decompressed, and this contributes to at least partial small bowel obstruction. No focally thick-walled bowel loops are identified. There is no pneumatosis intestinalis or portal venous gas. Liquid stool is noted in the right colon. Moderate fecal retention is seen in the left colon. The appendix is well-visualized and normal. Peritoneum: There is no intraperitoneal free air or abdominal ascites. There is a small fat-containing umbilical hernia. Lymphadenopathy: None. Pelvic viscera: The bladder, uterus, and adnexa are normal as visualized. There is a small bowel containing left inguinal hernia. See above. Skeletal structures: The skeletal structures are osteopenic. There is mild to moderate lumbosacral spondylosis. Grade 1 anterolisthesis is noted at L4-L5. No lytic or blastic lesions are seen. IMPRESSION: 1. There is a loop of small bowel contained within a left inguinal hernia. The upstream small bowel is mildly distended and fluid-filled, and the distal small bowel is decompressed. This likely represents a partial small bowel obstruction. 2. No intraperitoneal free air is seen. No thick walled bowel loops are identified and there is no pneumatosis intestinalis or portal venous gas. 3. Additional findings as above. ACT 112: Negative or not required by law. Electronically signed by: Jl Bloom M.D. 06/02/2023 7:13 AM KUB X-Ray 06/03/23 12:20 KUB HISTORY: NG tube placement. Small bowel obstruction. eval bowel/gas pattern COMPARISON: [facility]UB 06/02/2023. FINDINGS: Nasogastric tube terminates in the mid stomach. This remains unchanged. There are postoperative changes again noted. Moderate fecal retention, unchanged. A few mildly dilated gas-filled loops of small bowel again noted within the abdomen. These measure up to 3.6 cm in diameter. No renal calculi. No ureteral calculi. No pneumoperitoneum or pneumatosis. IMPRESSION: 1. Nasogastric tube terminates in the stomach. 2. Mild gaseous distention of the small bowel persists. This suggests persistent small bowel obstruction. 3. Moderate fecal retention. ACT 112: Negative or not required by law. Electronically signed by: William Chavis M.D. 06/03/2023 2:03 PM
--- NOTE | 2023-06-05 12:00 | Discharge Summary ---
Date of Service June 05, 2023 Admission HPI Per Admitting Provider History obtained from interview the patient and chart review. Past medical history of hypertension, hyperlipidemia, paroxysmal A-fib, PMR on chronic steroid, depression, CKD stage III, GERD, CVA Patient presents to the hospital with lower left-sided abdominal pain since midnight. Patient also reports multiple episode of vomiting containing food particle since then. No blood was seen. Patient's last bowel movement was yesterday afternoon. Patient denies fever, chills, chest pain or urinary symptoms. Patient abdominal pain had resolved when patient was being interviewed. In the ED, patient was normotensive, afebrile and saturating well on room air. Labs remarkable for elevated WBC count of 21,000. Creatinine elevated to 1.22; similar to her baseline. Liver enzymes are within normal limits. CT abdomen pelvis personally reviewed; loop of small bowel contained within left inguinal hernia. ED doctor attempted reduction; patient reports improvement of pain since then Past medical history; as above. 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 No history of alcohol use disorder. Family history; mother with hypertension, colon cancer. Father with hypertension. Admission Exam Per Admitting Provider Constitutional: Alert orient x3; not in distress. Respiratory: normal respiratory effort, lungs clear to auscultation, no wheeze, rales, rhonchi. Normal insp/exp effort, no accessory muscle use Cardiovascular: RRR, no murmur, no edema Vessels: no JVD or carotid bruit Chest: normal inspection of chest Abdomen: Soft, nontender. Inguinal hernia not appreciated. Musculoskeletal: no cyanosis or clubbing, extremities motor strength 5/5 Skin: no rashes, warm and dry normal turgor Neurologic: PERRL, EOMI, accommodation nl, no face palsy, no dysarthria CN's II- XI intact bilaterally and moves all extremities Psychiatric: A+Ox3, euthymic affect Principal Diagnosis Left inguinal hernia with a small bowel obstruction and status post surgery. Discharge Exam Constitutional: Alert orient x3; appears to be in mild distress. Respiratory: normal respiratory effort, lungs clear to auscultation, no wheeze, rales, rhonchi. Normal insp/exp effort, no accessory muscle use Cardiovascular: RRR, no murmur, no edema Vessels: no JVD or carotid bruit Chest: normal inspection of chest Abdomen: Soft, nontender. Dressing over the surgical site clean dry intact. Musculoskeletal: no cyanosis or clubbing, extremities motor strength 5/5 Skin: no rashes, warm and dry normal turgor Neurologic: PERRL, EOMI, accommodation nl, no face palsy, no dysarthria CN's II- XI intact bilaterally and moves all extremities Psychiatric: A+Ox3, euthymic affect Discharge Data Allergies Allergy/AdvReac Type Severity Reaction Status Date / Time baclofen AdvReac Intermediate NAUSEA/VOMI Verified 03/18/23 01:07 TING lisinopril AdvReac Intermediate COUGH Verified 03/18/23 01:07 Consultations 06/02/23 07:12 Consult General Surgery Stat 06/02/23 07:34 ED Decision to Admit Stat Procedures Performed Operation Date: 06/04/23 07:00 Actual Procedures p Left Open Inguinal Hernia Repair with Mesh(Left) - Farhat Blancas DO Ordered Studies 06/02/23 04:32 CT abd pelvis IV con only Stat Hospital Course (1) Small bowel obstruction: (2) Left inguinal hernia: Patient presents to the hospital with lower left-sided abdominal pain since last 8 hours along with nausea and vomiting. Leukocytosis present on admission; improving Creatinine elevated to 1.22 on admission; improved. Lactate within normal limits. Liver enzymes are within normal limits. CT abdomen pelvis personally reviewed; loop of small bowel contained within left inguinal hernia. ED doctor attempted reduction; patient reports improvement of pain since then During the hospitalization, patient underwent left open inguinal hernia repair on June 04 by surgery. NG tube was taken out after undergoing surgery. Patient was then started on clear liquid diet which was advanced to full liquid. Seen and cleared by surgery for discharge. Follow-up with surgery and PCP after discharge. All other medication were continued as before. Please note the above document was generated using voice recognition software. It may contain grammatical, syntax or spelling errors. Any formal questions or concerns about the content, text or information contained within the body of this dictation should be directly addressed to the provider for clarification Total Time Total Time Spent Total Time Spent (In Minutes): 45 Total Time Includes: Examination of the Patient, Discharge Planning, Medication Reconciliation, Communication With Other Providers and Other Discharge Plan Discharge Items Patient Disposition: Home - Self-Care Reason For Visit: SBO Discharge Diagnosis: left inguinal hernia repair Activity: Per Instructions section Lifting: No more than 10 pounds Bathing Comment: may shower; no soaking in tubs/pools x 2 weeks Exercise/Sports: Wait until after follow-up appointment Driving/Machine Use: wait at least 1 week; no driving while taking narcotics for pain Non-emergency contact: Primary Care Provider and Surgeon Call non-emergency contact if: you have any medication questions, your pain is worsening, you have a fever, your temperature is above 101.5, your wound has increased redness, your wound has increased drainage and your wound pain has increased Follow-up/Referrals: Francisco Carreon MD [Primary Care Provider] - (Date & Time 06/12/2023 11:20 AM Provider Francisco Carreon MD Department General Internal Medicine [facility] ) Farhat Blancas DO [Physician] - (Please call to schedule follow up in clinic within 2 weeks ) Diet: Full liquid Addtl Attending Provider Instructions: You may remove your outer surgical dressings on 06/06/23. You will have small white bandages on underneath that are over your incisions. You may shower with these on. They will tend to fall off on their own within 7-10 days. You are prescribed a few tablets of oxycodone for severe pain. You may purchase Tylenol over the counter if needed for additional pain control over the next few days. Take per manufacturers instructions. You are prescribed a few tablets of oxycodone for severe pain. Patient may be discharged home on a full liquid diet. Advised to slowly progress to a low fiber diet eating small frequent meals throughout the day. You can take as needed milk of magnesia for constipation. Pending Studies at Discharge: No Stand-Alone Forms: [employer], Smoking Cessation Medications and DC Order Prescriptions: New oxycodone 5 mg Tablet 5 mg PO Q8H PRN (Reason: pain) Qty: 10 0RF Continued prednisone 5 mg tablet 5 mg PO QAM aspirin 81 mg Tablet,Delayed Release (Dr/Ec) 81 mg PO PM Caltrate 600 plus D 600 mg (1,500 mg)-800 unit Tablet,Chewable 1 tab PO QAM atorvastatin 20 mg Tablet 20 mg PO HS amlodipine 5 mg Tablet 5 mg PO QAM pantoprazole [Protonix] 40 mg tablet,delayed release (DR/EC) 40 mg PO DAILYBB acetaminophen [Tylenol] 325 mg Tablet 650 mg PO DIRECTED PRN (Reason: FEVER/PAIN) ibuprofen 200 mg Tablet 400 mg PO Q4H PRN (Reason: PAIN/FEVER) duloxetine 20 mg capsule,delayed release(DR/EC) 20 mg PO QAM Probiotic 5 billion cell Capsule, Sprinkle 1 cap PO BID Discharge Orders: Discharge Order (Routine); Ordered 06/05/23 Ordered By: Yomi Murphy Admission Data Admit Date/Time: 06/02/23 08:02 Attending Provider: Yomi Murphy Admit Provider: Yomi Murphy Primary Care Provider: Francisco Carreon Other Providers: Farhat Blancas ; Lucy Sinha I.
[2023-06-05 12:48] LABS: Basophils # (auto) 0.02 K/uL (0.00-0.20); Basophils % (auto) 0.1 %; Hematocrit (blood only) 38.4 % (37.0-47.0); Immature Granulocytes # (auto) 0.07 K/uL (0.01-0.20); Immature Granulocytes % (auto) 0.4 %; Lymphocytes # (auto) 0.99 K/uL (1.20-3.40); Lymphocytes % (auto) 5.8 %; Mean Corpuscular Hemoglobin 30.6 pg (25.0-34.0); Mean Corpuscular Hgb Conc 33.9 g/dL (32.0-36.0); Mean Corpuscular Volume 90.4 fL (80.0-100.0); Mean Platelet Volume 10.7 fL (9.4-12.4); Monocytes # (auto) 0.86 K/uL (0.11-0.59); Neutrophils # (auto) 15.17 K/uL (1.40-6.50); Neutrophils % (auto) 88.7 %; Platelet Count 211 K/uL (130-400); RDW Coefficient of Variation 12.4 % (11.5-14.5); RDW Standard Deviation 40.8 fL (36.4-46.3); Red Blood Count 4.25 M/uL (4.20-5.40); White Blood Count 17.11 K/ul (4.8-10.8)
[2023-06-05] MEDS ORDERED: ASPIRIN 81 MG ECTAB PO SCH (21:00)
[2023-06-05] MEDS ORDERED: ATORVASTATIN 20 MG TAB PO SCH (21:00)
[2023-06-06] MEDS ORDERED: PANTOprazole 40 MG TAB PO SCH (06:30)
[2023-06-06] MEDS ORDERED: predniSONE 5 MG TAB PO SCH (09:00)
== END 2023-06-05 18:51 | disposition home or self-care (01) | DRG 352 ==
LOC: ED 04:11 → EDINP 08:02 → 2N 12:13